=== PATIENT | male | born 1965 | race Caucasian/White ===

== ENCOUNTER 2023-01-11 14:52 | Emergency (ER) | payer MEDICARE, MEDICAID, SELFPAY ==
[2023-01-11] VITALS (20 sets, daily range): BP systolic 110; BP diastolic 76; PULSE 47–75; RESP 15–22; TEMP 36.5; O2SAT 84–100
--- NOTE | 2023-01-11 14:59 | ECG_ITS ---
[facility] Test Date: 2023-01-11 Pat Name: VENUS WILLARD Department: Room: - Gender: Male [employer]: : 1965 Requested By: Order Number: [id number] Reading MD: PATTI FRITZ Measurements Intervals [place] Rate: 74 P: 71 WV: 146 QRS: 64 QRSD: 100 T: 55 QT: 392 QTc: 420 Interpretive Statements 1100 Sinus rhythm 4068 Nonspecific Twave abnormality 0102 ARTIFACT PRESENT 9130 borderline ECG No previous ECG available for comparison Electronically Signed On 01-12-2023 7:11:24 EST by PATTI FRITZ
--- NOTE | 2023-01-11 15:01 | ED_ITS ---
HPI - Altered Mental Status General Chief Complaint: Altered Mental Status Stated Complaint: ALTERED MENTAL STATUS Time Seen by Provider: 01/11/23 14:56 History of Present Illness HPI narrative: 57-year-old male presented for possible seizure. He was on and outing and wasn't acting himself and was felt to be postictal. He appears to have a history of seizures, he is on Keppra. He is nonverbal and is unable to provide any history. Initially no caregivers are present. Initially on the history was obtained through the paramedics. Review of Systems ROS Narrative not obtainable, nonverbal Exam Narrative Exam Narrative: Nurses note and vital signs reviewed and patient is not hypoxic. General: The patient appears well and in no apparent distress. Patient is resting comfortably on cart. Skin: Warm, dry, no pallor noted. There is no rash noted. Head: Normocephalic, atraumatic Eye: Normal conjunctiva, no drainage, right pupil round and reactive, left eye appears to have significant cataract. Ears, Nose, Mouth, and Throat: oral mucosa is moist. Nares patent. Cardiovascular: Regular Rate and Rhythm Respiratory: Patient is in no distress, no accessory muscle use, lungs are clear to auscultation, no wheezing, rales or rhonchi Back: non-tender GI: Normal bowel sounds, no tenderness to palpation, no masses appreciated. No rebound, guarding, or rigidity noted. Musculoskeletal: The patient has no evidence of calf tenderness, no pitting edema, symmetrical pulses noted bilaterally Neurological: aawake, looking around the room, nonverbal Psychiatric: cannot be assessed Constitutional Vital Signs, click to edit/add: Last Vital Signs Temp 97.7 F 01/11/23 14:54 Pulse 75 01/11/23 14:54 Resp 20 01/11/23 14:54 BP 110/76 01/11/23 14:54 Pulse Ox 100 01/11/23 14:54 O2 Del Method Nasal Cannula 01/11/23 14:54 O2 Flow Rate 2 01/11/23 14:54 Course Vital Signs Vital signs: Vital Signs Temperature 97.7 F 01/11/23 14:54 Pulse Rate 75 01/11/23 14:54 Respiratory Rate 20 01/11/23 14:54 Blood Pressure 110/76 01/11/23 14:54 Pulse Oximetry 100 01/11/23 14:54 Oxygen Delivery Method Nasal Cannula 01/11/23 14:54 Oxygen Delivery Flow Rate 2 01/11/23 14:54 Temperature 97.7 F 01/11/23 14:54 Pulse Rate 75 01/11/23 14:54 Respiratory Rate 20 01/11/23 14:54 Blood Pressure 110/76 01/11/23 14:54 Pulse Oximetry 100 01/11/23 14:54 Oxygen Delivery Method Nasal Cannula 01/11/23 14:54 Oxygen Delivery Flow Rate 2 01/11/23 14:54 MDM - Altered Mental Status MDM Narrative Medical decision making narrative: chest x-ray and CT brain showed no acute findings per radiologist. Sodium is mildly low at one hundred twenty-eight. He's had chronic hyponatremia according to his family. He does not need to be admitted to the hospital and is at his normal neurologic baseline now. Gatorade or Powerade was encouraged. Treatment diagnosis and follow-up were discussed with his family. Differential Diagnosis Differential diagnosis: Likely altered mental status, hypoglycemia and hyponatremia Lab Data Attestation: I reviewed the patient's lab results. Labs: Lab Results 01/11/23 Range/Units 15:11 WBC 6.9 (4.0-11.0) 10^3/uL RBC 3.66 L (4.70-6.10) 10^6/uL Hgb 12.2 L (14.0-18.0) g/dL Hct 36.6 L (42.0-54.0) % MCV 100.0 H (80.0-94.0) fL MCH 33.3 (25.9-34.0) pg MCHC 33.3 (29.9-35.2) g/dL RDW 12.9 (11.0-15.0) % Plt Count 324 (150-450) 10^3/uL MPV 8.6 L (9.5-13.5) fL Neut % (Auto) 74.8 (43.0-75.0) % Lymph % (Auto) 16.9 L (20.5-60.0) % [place] % (Auto) 7.1 (1.7-12.0) % Eos % (Auto) 0.4 L (0.9-7.0) % Baso % (Auto) 0.4 (0.2-2.0) % Neut # (Auto) 5.2 (1.4-6.5) 10^3/uL Lymph # (Auto) 1.2 (1.2-3.8) 10^3/uL [place] # (Auto) 0.5 (0.3-0.8) 10^3/uL Eos # (Auto) 0.0 (0.0-0.7) 10^3/uL Baso # (Auto) 0.0 (0.0-0.1) 10^3/uL Abs Immat Gran (auto) 0.03 (0.00-0.03) 10^3/uL Imm/Tot Granulo (auto) 0.4 (0.0-0.5) % Sodium 128 L (136-145) mmol/L Potassium 5.0 (3.5-5.1) mmol/L Chloride 92 L (98-107) mmol/L Carbon Dioxide 28.5 (21.0-32.0) mmol/L Anion Gap 12.5 BUN 17.0 (7.0-18.0) mg/dL Creatinine 0.86 (0.70-1.30) mg/dL Est GFR ( Amer) >60 (>=60) Est GFR (Non-Af Amer) >60 (>=60) BUN/Creatinine Ratio 19.8 Glucose 90 (74-106) mg/dL Calcium 9.0 (8.5-10.1) mg/dL Imaging Data chest x-ray, CT brain: Radiologist's impression: Procedure: XR chest 1V EXAMINATION: XR chest 1V HISTORY: Shortness of breath COMPARISON: None. TECHNIQUE: Portable chest FINDINGS: The lung parenchyma is free of consolidation or infiltrate. No pneumothorax or pleural effusion. The cardiac, mediastinal and hilar contours are normal. The visualized osseous structures exhibit no gross abnormality. IMPRESSION: No acute cardiopulmonary abnormality. Electronically authenticated by: MARINO JAMA Date: 01/11/2023 17:09 Procedure: CT head/brain wo con CT HEAD WITHOUT CONTRAST. INDICATION: Seizure. COMPARISON: None available for comparison TECHNIQUE: Axial CT head images from the skull base to the vertex without IV contrast were acquired. Coronal and sagittal reformats were also obtained. FINDINGS: Somewhat limited evaluation due to motion artifact. EXTRA-AXIAL SPACE: Mild ventriculomegaly likely due to central atrophy.. No acute extra-axial collection. No extra-axial mass. No midline shift. CEREBRUM: There are areas of periventricular and deep white matter low-attenuation, which is nonspecific but likely reflective of chronic microvascular ischemic disease.. There is left frontal lobe encephalomalacia. No CT evidence of acute large territorial cortical infarct, hemorrhage or mass effect. CEREBELLUM: No focal abnormality. No CT evidence of acute infarct, hemorrhage or mass effect. BRAINSTEM: No focal abnormality. No CT evidence of acute infarct, hemorrhage or mass effect. EXTRACRANIAL STRUCTURES. The paranasal sinuses are clear. Mastoid air cells are clear. Orbits are unremarkable. No discrete pituitary mass. Intact calvarium. IMPRESSION: No acute intracranial abnormality. Electronically authenticated by: ANANT SKAGGS Date: 01/11/2023 17:45 ECG Data Attestation: I personally reviewed and interpreted this ECG as follows: (EKG on my interpretation shows artifact with sinus rhythm) Discharge Plan Discharge Chief Complaint: Altered Mental Status Clinical Impression: Altered mental status Patient Disposition: Home, Self-Care Time of Disposition Decision: 17:58 Condition: Good Mode of Transportation: Private Vehicle Instructions: Altered Mental Status (ED) Stand Alone Forms: Portal Instructions Referrals: HIRA RAMIREZ [Primary Care Provider] - 1 week
[2023-01-11 15:19] LABS: Basophils Percent Auto 0.4 % (0.2-2.0); Eosinophils Percent Auto 0.4 % (0.9-7.0); Hematocrit 36.6 % (42.0-54.0); Hemoglobin 12.2 g/dL (14.0-18.0); Immature Granulocytes Abs Auto 0.03 10^3/uL (0.00-0.03); Immature Granulocytes Pct Auto 0.4 % (0.0-0.5); Lymphocytes Absolute Auto 1.2 10^3/uL (1.2-3.8); Lymphocytes Percent Auto 16.9 % (20.5-60.0); Mean Corpuscular HGB Conc 33.3 g/dL (29.9-35.2); Mean Corpuscular Hemoglobin 33.3 pg (25.9-34.0); Mean Platelet Volume 8.6 fL (9.5-13.5); Monocytes Absolute Auto 0.5 10^3/uL (0.3-0.8); Monocytes Percent Auto 7.1 % (1.7-12.0); Neutrophils Absolute Auto 5.2 10^3/uL (1.4-6.5); Neutrophils Percent Auto 74.8 % (43.0-75.0); Platelet Count 324 10^3/uL (150-450); Red Blood Count 3.66 10^6/uL (4.70-6.10); Red Cell Distribution Width 12.9 % (11.0-15.0); White Blood Count 6.9 10^3/uL (4.0-11.0)
[2023-01-11 15:25] LABS: Anion Gap 12.5; BUN Creatinine Ratio 19.8; Carbon Dioxide 28.5 mmol/L (21.0-32.0); Chloride 92 mmol/L (98-107); Estimated GFR (African America >60 (>=60); Estimated GFR (Non-African Ame >60 (>=60); Glucose 90 mg/dL (74-106); Sodium 128 mmol/L (136-145)
--- NOTE | 2023-01-11 15:53 | CT_ITS ---
The [address] [address] Patient Name: VENUS WILLARD MRN: [id number] date: 1965 Sex: M Assigned Patient Location: ER Current Patient Location: ER Accession/Order Number: [id number] Exam Date: 01/11/2023 17:15 Report Date: 01/11/2023 17:45 At the request of: SANDRA CHAPPELL Procedure: CT head/brain wo con CT HEAD WITHOUT CONTRAST. INDICATION: Seizure. COMPARISON: None available for comparison TECHNIQUE: Axial CT head images from the skull base to the vertex without IV contrast were acquired. Coronal and sagittal reformats were also obtained. FINDINGS: Somewhat limited evaluation due to motion artifact. EXTRA-AXIAL SPACE: Mild ventriculomegaly likely due to central atrophy.. No acute extra-axial collection. No extra-axial mass. No midline shift. CEREBRUM: There are areas of periventricular and deep white matter low-attenuation, which is nonspecific but likely reflective of chronic microvascular ischemic disease.. There is left frontal lobe encephalomalacia. No CT evidence of acute large territorial cortical infarct, hemorrhage or mass effect. CEREBELLUM: No focal abnormality. No CT evidence of acute infarct, hemorrhage or mass effect. BRAINSTEM: No focal abnormality. No CT evidence of acute infarct, hemorrhage or mass effect. EXTRACRANIAL STRUCTURES. The paranasal sinuses are clear. Mastoid air cells are clear. Orbits are unremarkable. No discrete pituitary mass. Intact calvarium. CT/CT head/brain wo con IMPRESSION: No acute intracranial abnormality. Electronically authenticated by: ANANT SKAGGS Date: 01/11/2023 17:45
--- NOTE | 2023-01-11 15:53 | XR_ITS ---
The [address] [address] Patient Name: VENUS WILLARD MRN: [id number] date: 1965 Sex: M Assigned Patient Location: ER Current Patient Location: ER Accession/Order Number: [id number] Exam Date: 01/11/2023 16:32 Report Date: 01/11/2023 17:09 At the request of: SANDRA CHAPPELL Procedure: XR chest 1V EXAMINATION: XR chest 1V HISTORY: Shortness of breath COMPARISON: None. TECHNIQUE: Portable chest FINDINGS: The lung parenchyma is free of consolidation or infiltrate. No pneumothorax or pleural effusion. The cardiac, mediastinal and hilar contours are normal. The visualized osseous structures exhibit no gross abnormality. XR/XR chest 1V IMPRESSION: No acute cardiopulmonary abnormality. Electronically authenticated by: MARINO JAMA Date: 01/11/2023 17:09
== END 2023-01-11 18:15 | disposition home or self-care (01) ==
PROVIDERS: Emergency Provider Emergency Medicine; PCP Family Medicine
DX: R41.82 Altered mental status, unspecified (principal); G40.909 Epilepsy, unspecified, not intractable, without status epilepticus; Z79.899 Other long term (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 therapy
CPT/HCPCS: 36415; 70450; 71045; 80048; 85025; 93005; 99285

== ENCOUNTER 2023-11-16 20:06 | Outpatient (OUT) | payer MEDICARE, MEDICAID, SELFPAY ==
--- OUTSIDE RECORDS SUMMARY | 2023-11-16 20:10 | XMS_ITS | CCD ---
Author Organization [facility] Care Team Providers Care Manager Ent Name Role Phone BART JUÁREZ Admitting UnavailBART Mora Attending Unavailabl e No Family, Physician Primary Care Unavailable LEVY BENITEZ Consulting Unavailable LEVY BENITEZ Admitting Unavailable INGRID RAMIREZ Primary Care Unavailable LEVY BENITEZ Attending Unavailable MARLIN DAVIS Consulting Unavailable ALBERTO MCFARLANE Consulting Unavailable HANSEL VELIZ Consulting Unavailable Unavailable Primary Care Provider UnavailOpal Melendez Unavailable INGRID RAMIREZ Primary Care Unavailable EDI ADAM Attending Unavailable KVNG CONNER. Admitting Unavailable ONLY), IP WOUND CARE SERVICES (INPATIENT Consult ing Unavailable (TT ONLY), NEURO-CONSULTING Consulting Estephanie wanble EREN ESPINOSA Consulting Unavailable BOY FRANCO Referring Unavailable INGRID RAMIREZ Primary Care Unavailable MOHAN MOSER Referring Unavailable INGRID RAMIREZ Primary Care Unavailable PLACIDO LE Referring Unavailable INGRID RAMIREZ Primary Care Unavailable Ingrid Ramirez MD Primary Care Provider [phone] МАРИНАCATALINO CASTLE Attending Unavailable INGRID RAMIREZ Referring Unavailable INGRID RAMIREZ Primary Care Unavailable INGRID RAMIREZ Referring Unavailable INGRID RAMIREZ Primary Care Unavailable SARA YEE Referring Unavailable INGRID RAMIREZ Primary Care Unavailable INGRID RAMIREZ Referring Unavailable INGRID RAMIREZ Primary Care Unavailable INGRID RAMIREZ Primary Care Unavailable KIMBERLYN FANG Attending Unavailable МАРИНА, EHAD Consulting Unavailable JANAYAN Tiana Admitting Unavailable CARDIOLOGY, [facility] Consulting Unavailable KIMBERLYN FANG Attending Unavailable KIMBERLYN FANG Referring Unavailable INGRID RAMIREZ Primary Care Unavailable SARA YEE Referring Unavailable INGRID RAMIREZ Primary Care Unavailable INGRID RAMIREZ Referring Unavailable INGRID RAMIREZ Primary Care Unavailable SUAD PRATT Attending Unavailable INGRID RAMIREZ Referring Unavailable INGRID RAMIREZ Primary Care Unavailable NADEEM MILLS Attending Unavailable INGRID RAMIREZ Attending Unavailable TONY ROPER Attending Unavailab TONY Albright Referring Unavailab boyd Allergies Allergy Classification Reported Allergen(s) Allergy Type Date of Onset Reaction(s) Facility (6 sources) Sulfamethoxazole / Trimethoprim; Translations: [SULFAMETHOXAZOLE-TR IMETHOPRIM] Drug Allergy 7 [facility] Medications Current Medications Medication Drug Class(es) Dates Sig (Normalized) Sig (Original) acetaminophen 325 mg oral tablet (3 sources) acetaminophen (TYLENOL) 325 mg tablet Take 500 mg by mouth in the morning and at bedtime. 0 Active bran/gum/fib/tracy/psy l/kelp/pec (FIBER 6 ORAL) (3 sources) bran/gum/fib/tracy /ps yl/kelp/pec (FIBER 6 ORAL) Take by mouth. 0 Active Calcium Carbonate / vitamin D3 (3 sources) take 1 tablet by mouth once CALCIUM CARBONATE/VITAMIN D3 (CALCIUM 600 + D,3, ORAL) Administer 1 tablet per tube daily. Calcium 600 mg with D3 1800 IU daily 0 Active docusate sodium 100 mg oral capsule (3 sources) take 1 capsule by mouth in the morning docusate sodium (COLACE) 100 mg capsule Take 1 capsule (100 mg total) by mouth in the morning. 0 Active famotidine 20 mg oral tablet (3 sources) Histamine-2 Receptor Antagonist Start: 04-08-2019 take 1 tablet by mouth in the morning, then take 1 tablet by mouth at bedtime famotidine (PEPCID) 20 mg tablet Take 1 tablet (20 mg total) by mouth in the morning and 1 tablet (20 mg total) before bedtime. 0 04/08/2019 Active hydrocortisone 10 mg oral tablet (3 sources) Corticosteroid Start: 09-18-2022 take 1 tablet by mouth in the morning, then take 1 tablet by mouth at bedtime hydrocortisone (CORTEF) 10 mg tablet Take 1 tablet (10 mg total) by mouth in the morning and 1 tablet (10 mg total) before bedtime. 60 tablet 0 09/18/2022 Active lamoTRIgine 100 mg oral tablet (4 sources) Mood Stabilizer, Anti-epileptic Agent Start: 11-18-2022 End: 03-29-2023 take 2 tablets by mouth in the morning, then take 2 tablets by mouth at bedtime lamoTRIgine (LaMICtal) 100 mg tablet Indications: Partial symptomatic epilepsy with complex partial seizures, not intractable, without status epilepticus (CMS-HCC) Take 2 tablets (200 mg total) by mouth in the morning and 2 tablets (200 mg total) before bedtime. 120 tablet 3 03/29/2023 Active levETIRAcetam 250 mg oral tablet (3 sources) Start: 02-16-2023 take 1 tablet by mouth in the morning, then take 1 tablet by mouth at bedtime levETIRAcetam (KEPPRA) 250 mg tablet Indications: Partial symptomatic epilepsy with complex partial seizures, not intractable, without status epilepticus (CMS-HCC) Take 1 tablet (250 mg total) by mouth in the morning and 1 tablet (250 mg total) before bedtime. 60 tablet 3 02/16/2023 Active levothyroxine sodium 0.075 mg oral tablet (4 sources) l-Thyroxine Start: 12-27-2020 levothyroxine (SYNTHROID, LEVOTHROID) 75 MCG tablet Take 50 mcg by mouth in the morning. 0 12/27/2020 Active take 1 tablet by chelsea th once daily in the morning Levothyroxine Sodium 50 MCG 1 tablet in the morning on an empty stomach Orally Once a day Active loratadine 10 mg disintegrating oral tablet (3 sources) loratadine (CLAR ITIN REDITABS) 10 mg disintegrating tablet Dissolve 1 tablet (10 mg total) on tongue in the morning. 0 Active midodrine hydrochloride 10 mg oral tablet (3 sources) alpha-Adrenergic Agonist Start: 023 take 1 tablet by mouth three times daily as needed midodrine (PROAMATINE) 10 mg tablet Take 1 tablet (10 mg total) by mouth 3 (three) times a day as needed (for SBP 60 tablet 2 09/18/2022 Active multivit with minerals/lutein (MULTIVITAMIN 50 PLUS ORAL) (3 sources) multivit with minerals/lutein (MULTIVITAMIN 50 PLUS ORAL) Take by mouth. 0 Active nystatin 100 unt/mg topical powder (3 sources) Polyene Antifungal Start: 021 NYSTOP powder Apply 1 Application topically in the morning and 1 Application before bedtime. 0 09/30/2020 Active QUEtiapine 25 mg oral tablet (3 sources) Atypical Antipsychotic Start: 023 take 1 tablet by mouth once daily as needed QUEtiapine (SEROquel) 25 mg tablet Indications: Agitation Take 1 tablet (25 mg total) by mouth daily as needed (CC: agitation). 30 tablet 3 07/15/2022 Active sertraline 50 mg oral tablet (1 source) Serotonin Reuptake Inhibitor take 1 tablet by mouth every twenty-four hours Sertraline HCl 50 MG 1 tablet Orally Once a day Active sodium chloride 1000 mg oral tablet (3 sources) Start: 024 take 2 tablets by mouth three times daily sodium chloride 1,000 mg tablet,soluble Take 2 tablets (2,000 mg total) by mouth 3 (three) times a day. 90 tablet 3 03/08/2023 Active Completed/Discontinued Medications Medication Drug Class(es) Dates Sig (Normalized) Sig (Original) barium sulfate 40 % paste 10 mL (1 source) Start: 03-20-2019 End: 03-20-2019 barium sulfate 40 % paste 10 mL barium sulfate 40 % reconsitutable suspension (1 source) Start: 03-20-2019 End: 03-20-2019 barium sulfate 40 % reconsitutable suspension Problems Active Problems Problem Classification Problem Date Documented Date Episodic/Chronic Acute cerebrovascular disease (9 sources) Cerebral hemorrhage; Translations: [Nontraumatic intracerebral hemorrhage, unspecified] Onset: 02-05-2019 02-28-2019 Chronic Cardiac dysrhythmias (1 source) Bradycardia, unspecified; Translations: [Bradycardia, unspecified] Onset: 08-05-2023 Episodic Chronic ulcer of skin (6 sources) Pressure-induced deep tissue damage of left heel; Translations: [Pressure ulcer, heel] Onset: 03-08-2023 03-08-2023 Chronic Complications of surgical procedures or medical care (1 source) Hypotension due to drugs; Translations: [Hypotension due to drugs] Onset: 08-05-2023 Episodic Delirium, dementia, and amnestic and other cognitive disorders (1 source) Dementia in other diseases classified elsewhere without behavioral disturbance; Translations: [Dementia in other diseases classified elsewhere, unspecified severity, without behavioral disturbance, psychotic disturbance, mood disturbance, and anxiety] Onset: 03-06-2023 Chronic Epilepsy; convulsions (10 sources) Partial epilepsy with impairment of consciousness; Translations: [Localization-related (focal) (partial) symptomatic epilepsy and epileptic syndromes with complex partial seizures, not intractable, without status epilepticus] Onset: 02-06-2020 03-29-2023 Chronic Epilepsy; convulsions (6 sources) Unspecified convulsions; Translations: [Seizure] Onset: 04-05-2020 Episodic Esophageal disorders (4 sources) Gastroesophageal reflux disease; Translations: [Gastro-esophageal reflux disease without esophagitis] Onset: 04-17-2016 02-08-2019 Chronic Hyperplasia of prostate (3 sources) Benign prostatic hyperplasia; Translations: [Benign prostatic hyperplasia with lower urinary tract symptoms] Onset: 01-10-2016 01-10-2016 Chronic Other aftercare (1 source) Other 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 (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 therapy; Translations: [OTH WHANAU SUPPORT WORKER CURRENT DRUG THERAPY] Onset: 04-11-2020 Episodic Other circulatory disease (3 sources) History of intracranial hemorrhage; Translations: [Personal history of other diseases of the circulatory system] Onset: 02-10-2023 02-10-2023 Episodic Other congenital anomalies (2 sources) Down syndrome, unspecified; Translations: [DOWN SYNDROME UNSPECIFIED] Onset: 04-11-2020 Chronic Other congenital anomalies (3 sources) Anomaly of chromosome pair 21; Translations: [Down syndrome, unspecified] Onset: 04-17-2016 03-06-2023 Chronic Other congenital anomalies (3 sources) Dementia with Down syndrome; Translations: [Down syndrome, unspecified] Onset: 07-09-2020 03-06-2023 Chronic Other endocrine disorders (2 sources) Unspecified adrenocortical insufficiency; Translations: [UNS ADRENOCORTICAL INSUFFICIENCY] Onset: 04-11-2020 Chronic Other nutritional; endocrine; and metabolic disorders (1 source) Obesity, unspecified; Translations: [OBESITY UNSPECIFIED] Onset: 04-11-2020 Chronic Other nutritional; endocrine; and metabolic disorders (1 source) Body mass index (BMI) 35.0-35.9, adult; Translations: [BODY MASS INDEX BMI 35.0-35.9 ADULT] Onset: 04-11-2020 Chronic Other screening for suspected conditions (not mental disorders or infectious disease) (1 source) Other specified abnormal findings of blood chemistry; Translations: [Other specified abnormal findings of blood chemistry] Onset: 08-06-2023 Episodic Residual codes; unclassified (4 sources) Sleep apnea; Translations: [Sleep apnea, unspecified] Onset: 04-17-2016 05-18-2022 Chronic Residual codes; unclassified (3 sources) Obstructive sleep apnea syndrome; Translations: [Obstructive sleep apnea (adult) (pediatric)] Onset: 07-09-2020 07-09-2020 Chronic Residual codes; unclassified (2 sources) Obstructive sleep apnea (adult) (pediatric); Translations: [Obstructive sleep apnea (adult) (pediatric)] Onset: 07-09-2020 Chronic Residual codes; unclassified (1 source) Restlessness and agitation; Translations: [Restlessness and agitation] Onset: 06-04-2023 Chronic Residual codes; unclassified (1 source) Personal history of other specified conditions; Translations: [PERSONAL HISTORY OTH SPEC CONDITION] Onset: 04-11-2020 Episodic Residual codes; unclassified (1 source) Did not attend; Translations: [No-show for appointment] 04-15-2023 Episodic Thyroid disorders (4 sources) Hypothyroidism; Translations: [Hypothyroidism, unspecified] Onset: 04-17-2016 03-06-2023 Chronic Unclassified (1 source) CONTACT W/AND (SUSP) EXPOS COVID-19; Translations: [CONTACT W/AND (SUSP) EXPOS COVID-19] Onset: 04-11-2020 Unclassified (1 source) lethargic x2 days, not eating, recent seizure med changes Onset: 03-05-2023 Unclassified (1 source) Traumatic subarachnoid hemorrhage with loss of consciousness status unknown, sequela; Translations: [Traumatic subarachnoid hemorrhage with loss of consciousness status unknown, sequela] Onset: 01-13-2022 Unclassified (1 source) New Patient Onset: 10-20-2023 Past or Other Problems Problem Classification Problem Date Documented Da te Episodic/Chronic Acute posthemorrhagic anemia (3 sources) Acute posthemorrhagic anemia; Translations: [Acute posthemorrhagic anemia] Onset: 02-08-2019 02-08-2019 Episodic Deficiency and other anemia (3 sources) Anemia; Translations: [Anemia, unspecified] Onset: 04-17-2016 03-06-2023 Episodic Fluid and electrolyte disorders (9 sources) Hypo-osmolality and hyponatremia; Translations: [Chronic hyponatremia] Onset: 04-11-2020 03-06-2023 Episodic Genitourinary symptoms and ill-defined conditions (18 sources) Blood in urine; Translations: [Hematuria, unspecified] Onset: 01-10-2016 Resolved: 06-29-2016 01-10-2016 Episodic Immunizations and screening for infectious disease (1 source) Encounter for screening for other viral diseases Onset: 01-24-2021 Resolved: 01-24-2021 Episodic Intracranial injury (3 sources) Subarachnoid hemorrhage due to traumatic injury; Translations: [Traumatic subarachnoid hemorrhage with unknown loss of consciousness status] Onset: 01-13-2022 01-13-2022 Episodic Malaise and fatigue (5 sources) Other fatigue; Translations: [Fatigue] Onset: 09-14-2022 09-14-2022 Episodic Mood disorders (3 sources) Mood disorders Onset: 02-10-2023 02-10-2023 Other circulatory disease (1 source) Personal history of other diseases of the circulatory system; Translations: [Personal history of other diseases of the circulatory system] Onset: 02-10-2023 Episodic Other gastrointestinal disorders (3 sources) Constipation; Translations: [Other constipation] Onset: 02-08-2019 02-08-2019 Episodic Other gastrointestinal disorders (3 sources) Dysphagia; Translations: [Dysphagia, unspecified] Onset: 02-14-2019 02-15-2019 Episodic Other gastrointestinal disorders (1 source) Other constipation; Translations: [Other constipation] Onset: 02-08-2019 Episodic Other male genital disorders (6 sources) Phimosis; Translations: [Phimosis] Onset: 05-01-2016 05-01-2016 Episodic Pneumonia (except that caused by tuberculosis or sexually transmitted disease) (3 sources) Sepsis; Translations: [Pneumonia, unspecified organism] Onset: 02-27-2019 02-27-2019 Episodic Respiratory failure; insufficiency; arrest (adult) (3 sources) Acute respiratory failure; Translations: [Acute respiratory failure with hypoxia] Onset: 02-08-2019 02-28-2019 Episodic Unclassified (3 sources) Onset: 11-18-2022 11-18-2022 Urinary tract infections (5 sources) Acute cystitis without hematuria; Translations: [Acute cystitis] Onset: 03-08-2023 03-08-2023 Episodic Results Test Name Value Interpretation Reference Range Facility XR CHEST 2 VIEWSon XR CHEST 2 VIEWS TITLE OF EXAM: XR - CHEST 2 VIEWS REASON FOR EXAM: COVID ten days ago, congestion TECHNIQUE: 2 radiographs of the chest. COMPARISON: None FINDINGS: Normal lung expansion. Diffuse reticular opacities with nodularity. Central pulmonary venous engorgement with linear opacities approaching the lung peripheries. No scott pneumonic consolidation. No significant effusion or pneumothorax. Cardiomegaly. No acute osseous or upper abdominal abnormality. IMPRESSION: Findings suggest mild interstitial pulmonary edema on a background of chronic small airways disease, fibrosis, and/or inflammatory or infectious bronchitis/bronchioli tis. DICTATED ON: 11/03/2023 3:06 PM This report has been electronically signed in approved by the interpreting radiologist. Electronically Signed Bernardo Keller M.D. 2023-11-03 15:07:12 Normal Not Available CBC AND AUTO DIFFon 08-06-19 24 ABSOLUTE BASOPHIL 0.0 X10E9/L Normal 0.0-0.2 [facility] Comment on above: Performed By: #### 6 30-4 #### [facility] ([id number]) [address] [place] [address] ABSOLUTE NEUTROPHIL 6.0 X10E9/L Normal 1.5-6.6 [facility] Comment on above: Performed By: #### 6 30-4 #### [facility] ([id number]) [address] [place] [address] Basophils/100 WBC (Bld) 0.2 % Normal [facility] Comment on above: Performed By: #### 6 30-4 #### [facility] ([id number]) [address], [address] [place] [address] Eosinophils (Bld) [#/Vol] 0.1 10*3/uL Normal 0.0-0.4 [facility] Comment on above: Performed By: #### 6 30-4 #### [facility] ([id number]) [address] [place] [address] Eosinophils/100 WBC (Bld) 1.0 % Normal [facility] Comment on above: Performed By: #### 6 30-4 #### [facility] ([id number]) [address] [facility] [address] [place] [address] Erythrocyte distribution width (RBC) [Ratio] 15.2 % High 11.5-15.0 [facility] Comment on above: Performed By: #### 6 30-4 #### [facility] ([id number]) [address], [address] [place] [address] Hematocrit (Bld) [Volume fraction] 30.1 % Low 39-49 [facility] Comment on above: Performed By: #### 6 30-4 #### [facility] ([id number]) [address] [place] [address] Hemoglobin (Bld) [Mass/Vol] 10.2 g/dL Low 13.0-17.0 [facility] Comment on above: Performed By: #### 6 30-4 #### [facility] ([id number]) [address] [place] [address] Lymphocytes (Bld) [#/Vol] 0.5 10*3/uL Low 1.0-3.5 [facility] Comment on above: Performed By: #### 6 30-4 #### [facility] ([id number]) [address] [place] [address] Lymphocytes/100 WBC (Bld) 6.7 % Normal [facility] Comment on above: Performed By: #### 6 30-4 #### [facility] ([id number]) [address], [address] [place] [address] MCH (RBC) [Entitic mass] 33.9 pg Normal 27-34 [facility] Comment on above: Performed By: #### 6 30-4 #### [facility] ([id number]) [address], [address] [place] [address] MCHC (RBC) [Mass/Vol] 33.7 g/dL Normal 32-36 [facility] Comment on above: Performed By: #### 6 30-4 #### [facility] ([id number]) [address], [address] [place] [address] MCV (RBC) [Entitic vol] 101 fL High 80-100 [facility] Comment on above: Performed By: #### 6 30-4 #### [facility] ([id number]) [address], [address] [place] [address] Monocytes (Bld) [#/Vol] 0.4 10*3/uL Normal 0-0.9 [facility] Comment on above: Performed By: #### 6 30-4 #### [facility] ([id number]) [address], [address] [place] [address] Monocytes/100 WBC (Bld) 6.3 % Normal [facility] Comment on above: Performed By: #### 6 30-4 #### [facility] ([id number]) [address], [address] [place] [address] Neutrophils/100 WBC (Bld) 85.8 % Normal [facility] Comment on above: Performed By: #### 6 30-4 #### [facility] ([id number]) [address], [address] [place] [address] Platelet mean volume (Bld) [Entitic vol] 7.2 fL Normal 7-12 [facility] Comment on above: Performed By: #### 6 30-4 #### [facility] ([id number]) [address], [address] [place] [address] Platelets (Bld) [#/Vol] 241 10*3/uL Normal 150-450 [facility] Comment on above: Performed By: #### 6 30-4 #### [facility] ([id number]) [address], [address] [place] [address] RBC COUNT 2.99 X10E12/L Low 4.10-5.70 [facility] Comment on above: Performed By: #### 6 30-4 #### [facility] ([id number]) [address], [address] [place] [address] WBC (Bld) [#/Vol] 7.0 10*3/uL Normal 4.0-11.0 [facility] Comment on above: Performed By: #### 6 30-4 #### [facility] ([id number]) [address], [address] [place] [address] CK [Catalytic activity/Vol]o n 08-06-2023 CPK 62 U/L Normal 24-195 [facility] Comment on above: Performed By: #### B MP #### [facility] ([id number]) [address], [address] [place] [address] COMPREHENSIVE METABOLIC PANE Raymond 08-06-2023 Albumin [Mass/Vol] 3.0 g/dL Low 3.2-5.3 [facility] Comment on above: Performed By: #### 6 30-4 #### [facility] ([id number]) [address], [address] [place] [address] ALP [Catalytic activity/Vol] 62 U/L Normal 39-130 [facility] Comment on above: Performed By: #### 6 30-4 #### [facility] ([id number]) [address], [address] [place] [address] ALT [Catalytic activity/Vol] 54 U/L High 0-40 [facility] Comment on above: Performed By: #### 6 30-4 #### [facility] ([id number]) [address] [place] [address] Anion gap [Moles/Vol] 8 mmol/L Normal 5-15 [facility] Comment on above: Performed By: #### 6 30-4 #### [facility] ([id number]) [address], [address] [place] [address] AST [Catalytic activity/Vol] 40 U/L Normal 0-41 [facility] Comment on above: Performed By: #### 6 30-4 #### [facility] ([id number]) [address], [address] [place] [address] Bilirubin [Mass/Vol] 0.4 mg/dL Normal 0.3-1.2 [facility] Comment on above: Performed By: #### 6 30-4 #### [facility] ([id number]) [address] [place] [address] Calcium [Mass/Vol] 7.8 mg/dL Low 8.5-10.5 [facility] Comment on above: Performed By: #### 6 30-4 #### [facility] ([id number]) [address], [address] [place] [address] Chloride [Moles/Vol] 104 mmol/L Normal 98-109 [facility] Comment on above: Performed By: #### 6 30-4 #### [facility] ([id number]) [address], [address] [place] [address] CO2 [Moles/Vol] 22 mmol/L Normal 22-32 [facility] Comment on above: Performed By: #### 6 30-4 #### [facility] ([id number]) [address] [address] [place] [address] Creatinine [Mass/Vol] 0.92 mg/dL Normal 0.70-1.20 [facility] Comment on above: Result Comment: METH OD TRACEABLE TO IDMS STANDARD Performed By: #### 6 30-4 #### [facility] ([id number]) [address], [address] [place] [address] eGFR (CKD-EPI) NON-RACE DEPENDENT >90 Normal >59 [facility] Comment on above: Result Comment: Reported eGFR is based on the CKD-EPI 2020 equation that does not use a race coefficient. Performed By: #### 6 30-4 #### [facility] ([id number]) [address] [place] [address] Glucose [Mass/Vol] 118 mg/dL High 65-99 [facility] Comment on above: Performed By: #### 6 30-4 #### [facility] ([id number]) [address] [place] [address] Potassium [Moles/Vol] 4.2 mmol/L Normal 3.5-5.0 [facility] Comment on above: Performed By: #### 6 30-4 #### [facility] ([id number]) [address] [place] [address] Protein [Mass/Vol] 6.1 g/dL Normal 6.0-8.0 [facility] Comment on above: Performed By: #### 6 30-4 #### [facility] ([id number]) [address] [place] [address] Sodium [Moles/Vol] 134 mmol/L Normal 134-146 [facility] Comment on above: Performed By: #### 6 30-4 #### [facility] LAB ([id number]) [address], [address] [place] [address] Urea nitrogen [Mass/Vol] 21 mg/dL Normal 5-23 [facility] Comment on above: Performed By: #### 6 30-4 #### [facility] ([id number]) [address], [address] [place] [address] CT BRAIN WO CONTon CT BRAIN WO CONT CT BRAIN WO CONT CT BRAIN WO CONT HISTORY: Seizures, history of stroke COMPARISON: 03/06/2023 TECHNIQUE: CT brain obtained without intravenous contrast. Automated exposure control was utilized. All CT scans at this facility use dose modulation, iterative reconstruction, and/or weight based dosing when appropriate to reduce radiation dose to as low as reasonably achievable. FINDINGS: No midline shift, mass effect, acute intracranial hemorrhage, or evidence of acute large vessel ischemia/infarct. Sequelae of right frontal territorial infarct with encephalomalacia, not changed compared to prior. Left frontoparietal craniotomy. Severe, diffuse cerebral volume loss with proportionate prominence of the ventricles, cisterns, and sulci. Hypoattenuation in the periventricular white matter, likely related to chronic microvascular ischemic disease. Brainstem and cerebellum are unremarkable. Visualized intraorbital contents and the infratemporal soft tissues show no acute abnormality. The visualized paranasal sinuses well-aerated. Hypopneumatization of the mastoid air cells. Osseous structures in skull base and calvarium show no acute abnormality. IMPRESSION: * No acute intracranial abnormality by CT. Consider MRI if you suspect occult process. Approved by Resident: Sonido Rodriguez DO on 08/06/2023 12:05 AM IBeau MD have personally reviewed the image(s) and agree with and/or edited the report Finalized by Beau Ramirez MD on 08/06/2023 12:19 AM Normal [facility] MAGNESIUMon 08-06-2023 Magnesium [Mass/Vol] 1.9 mg/dL Normal 1.8-2.6 [facility] Comment on above: Performed By: #### B MP #### [facility] ([id number]) [address], [address] [place] [address] Magnesium Ionized ISE (Bld) [Moles/Vol]on 08-06-2023 Magnesium [Moles/Vol] 0.56 mmol/L Normal 0.45-0.74 [facility] Comment on above: Result Comment: NEW REFERENCE RANGE Performed By: #### B MP #### [facility] ([id number]) [address], [address] [place] [address] Troponin I.cardiac High sens itivity method [Mass/Vol]on 08-06-2023 3 HOUR TROP I, HIGH SENSITIVITY 70 ng/L High <21 [facility] Comment on above: Result Comment: Elevations of hs-Troponin may be due to causes other than myocardial ischemia. Recommend serial hs-Troponin testing be performed. For the initial evaluation and management of chest pain patients, refer to the algorithms linked below. Emergency Patient: [email or web address]& uh=acaea Inpatient: [email or web address]?[email or web address]&[email or web address]& uh=acaea Performed By: #### B MP #### [facility] ([id number]) [address], [address] [place] [address] 3 HOUR TROP I, HIGH SENSITIVITY 85 ng/L High <21 [facility] Comment on above: Result Comment: Elevations of hs-Troponin may be due to causes other than myocardial ischemia. Recommend serial hs-Troponin testing be performed. For the initial evaluation and management of chest pain patients, refer to the algorithms linked below. Emergency Patient: [email or web address]&[email or web address]& uh=acaea Inpatient: [email or web address] [email or web address]?[email or web address]&[email or web address]& uh=acaea Performed By: #### 6 30-4 #### [facility] ([id number]) [facility], [address] [place] [address] 1 HOUR TROP I, HIGH SENSITIVITY 75 ng/L High <21 [facility] Comment on above: Result Comment: Elevations of hs-Troponin may be due to causes other than myocardial ischemia. Recommend serial hs-Troponin testing be performed. For the initial evaluation and management of chest pain patients, refer to the algorithms linked below. Emergency Patient: [email or web address]&[email or web address]& uh=acaea Inpatient: [email or web address]&n=83667& uh=acaea Performed By: #### 6 30-4 #### [facility] ([id number]) [address] [place] [address], [address] [place] [address] lamoTRIgine [Mass/Vol]on Lamotrigine, S 8.6 mcg/mL Normal 3.0-15.0 [facility] Comment on above: Result Comment: NOTE ADDITIONAL INFORMATION This test was developed and its performance characteristics determined by [facility] in a manner consistent with CLIA requirements. This test has not been cleared or approved by the U.S. Food and Drug Administration. Test Performed by: [facility] [address] [address] [employer] Worker: Mathew Gomez M.D. Ph.D.; CLIA# [id number] Performed By: #### B MP #### [facility] ([id number]) [address] [place] [address], [address] [place] [address] levETIRAcetam [Mass/Vol]on 08-06-2023 LEVETIRACETAM See Below Normal [facility] Comment on above: Result Comment: NOTE TEST RESULT FLAG UNIT REF.RANGE ------- Levetiracetam 55.7 H ug/mL 12.0-46.0 This test is not suitable for patients receiving treatment with the drug brivaracetam (Briviact). The drug causes an interference that may lead to falsely elevated levetiracetam results. Reference ranges and high/low indicator flags are provided as general guidelines only. The treating physician must determine appropriate target levels/dosing based on the specific clinical situation. This test was developed and its performance characteristics determined by [facility]'s [facility] [place] ([facility]). It has not been cleared or approved by the FDA. [facility] is regulated under CLIA as qualified to perform high-complexity testing. This test is used for clinical purposes. It should not be regarded as investigational or for research. Test Performed By: [place] [address] [employer] Officer: Aditya Allen III, M.D. CLIA #[id number] Performed By: #### B MP #### [facility] ([id number]) [address], [address] [place] [address] CBC AND AUTO DIFFon 08-05-19 24 ABSOLUTE BASOPHIL 0.0 X10E9/L Normal 0.0-0.2 [facility] Comment on above: Performed By: #### 6 30-4 #### [facility] ([id number]) [address], [address] [place] [address] ABSOLUTE NEUTROPHIL 6.7 X10E9/L High 1.5-6.6 [facility] Comment on above: Performed By: #### 6 30-4 #### [facility] ([id number]) [address] [place] [address] Basophils/100 WBC (Bld) 0.3 % Normal [facility] Comment on above: Performed By: #### 6 30-4 #### [facility] ([id number]) [address], [facility] [address] [place] [address] Eosinophils (Bld) [#/Vol] 0.1 10*3/uL Normal 0.0-0.4 [facility] Comment on above: Performed By: #### 6 30-4 #### [facility] ([id number]) [address] [address] [place] [address] Eosinophils/100 WBC (Bld) 1.1 % Normal [facility] Comment on above: Performed By: #### 6 30-4 #### [facility] ([id number]) [address] [place] [address] Erythrocyte distribution width (RBC) [Ratio] 15.0 % Normal 11.5-15.0 [facility] Comment on above: Performed By: #### 6 30-4 #### [facility] ([id number]) [address], [facility] [address] [place] [address] Hematocrit (Bld) [Volume fraction] 35.3 % Low 39-49 [facility] Comment on above: Performed By: #### 6 30-4 #### [facility] ([id number]) [address] [address] [place] [address] Hemoglobin (Bld) [Mass/Vol] 11.9 g/dL Low 13.0-17.0 [facility] Comment on above: Performed By: #### 6 30-4 #### [facility] ([id number]) [address] [address] [place] [address] Lymphocytes (Bld) [#/Vol] 0.4 10*3/uL Low 1.0-3.5 [facility] Comment on above: Performed By: #### 6 30-4 #### [facility] ([id number]) [address] [place] [address] Lymphocytes/100 WBC (Bld) 5.5 % Normal [facility] Comment on above: Performed By: #### 6 30-4 #### [facility] ([id number]) [address], [address] [place] [address] MCH (RBC) [Entitic mass] 33.5 pg Normal 27-34 [facility] Comment on above: Performed By: #### 6 30-4 #### [facility] ([id number]) [address], [address] [place] [address] MCHC (RBC) [Mass/Vol] 33.6 g/dL Normal 32-36 [facility] Comment on above: Performed By: #### 6 30-4 #### [facility] ([id number]) [address], [address] [place] [address] MCV (RBC) [Entitic vol] 100 fL Normal 80-100 [facility] Comment on above: Performed By: #### 6 30-4 #### [facility] ([id number]) [address], [address] [place] [address] Monocytes (Bld) [#/Vol] 0.3 10*3/uL Normal 0-0.9 [facility] Comment on above: Performed By: #### 6 30-4 #### [facility] ([id number]) [address], [address] [place] [address] Monocytes/100 WBC (Bld) 3.7 % Normal [facility] Comment on above: Performed By: #### 6 30-4 #### [facility] ([id number]) [address], [address] [place] [address] Neutrophils/100 WBC (Bld) 89.4 % Normal [facility] Comment on above: Performed By: #### 6 30-4 #### [facility] ([id number]) [address], [address] [place] [address] Platelet mean volume (Bld) [Entitic vol] 7.0 fL Normal 7-12 [facility] Comment on above: Performed By: #### 6 30-4 #### [facility] ([id number]) [address], [address] [place] [address] Platelets (Bld) [#/Vol] 270 10*3/uL Normal 150-450 [facility] Comment on above: Performed By: #### 6 30-4 #### [facility] ([id number]) [address], [address] [place] [address] RBC COUNT 3.55 X10E12/L Low 4.10-5.70 [facility] Comment on above: Performed By: #### 6 30-4 #### [facility] ([id number]) [address], [address] [place] [address] WBC (Bld) [#/Vol] 7.5 10*3/uL Normal 4.0-11.0 [facility] Comment on above: Performed By: #### 6 30-4 #### [facility] ([id number]) [address], [address] [place] [address] COMPREHENSIVE METABOLIC PANE Raymond 08-05-2023 Albumin [Mass/Vol] 3.7 g/dL Normal 3.2-5.3 [facility] Comment on above: Performed By: #### 6 30-4 #### [facility] ([id number]) [address], [address] [place] [address] ALP [Catalytic activity/Vol] 77 U/L Normal 39-130 [facility] Comment on above: Performed By: #### 6 30-4 #### [facility] ([id number]) [address], [address] [place] [address] ALT [Catalytic activity/Vol] 63 U/L High 0-40 [facility] Comment on above: Performed By: #### 6 30-4 #### [facility] ([id number]) [address], [address] [place] [address] Anion gap [Moles/Vol] 3 mmol/L Low 5-15 [facility] Comment on above: Performed By: #### 6 30-4 #### [facility] ([id number]) [address], [address] [place] [address] AST [Catalytic activity/Vol] 54 U/L High 0-41 [facility] Comment on above: Performed By: #### 6 30-4 #### [facility] ([id number]) [address], [address] [place] [address] Bilirubin [Mass/Vol] 0.7 mg/dL Normal 0.3-1.2 [facility] Comment on above: Performed By: #### 6 30-4 #### [facility] ([id number]) [address], [address] [place] [address] Calcium [Mass/Vol] 8.4 mg/dL Low 8.5-10.5 [facility] Comment on above: Performed By: #### 6 30-4 #### [facility] ([id number]) [address] [place] [address] Chloride [Moles/Vol] 104 mmol/L Normal 98-109 [facility] Comment on above: Performed By: #### 6 30-4 #### [facility] ([id number]) [address], [address] [place] [address] CO2 [Moles/Vol] 27 mmol/L Normal 22-32 [facility] Comment on above: Performed By: #### 6 30-4 #### [facility] ([id number]) [address], [address] [place] [address] Creatinine [Mass/Vol] 1.14 mg/dL Normal 0.70-1.20 [facility] Comment on above: Result Comment: METH OD TRACEABLE TO IDMS STANDARD Performed By: #### 6 30-4 #### [facility] ([id number]) [address] [address] [place] [address] GFR/1.73 sq M.predicted among non-blacks MDRD (S/P/Bld) [Vol rate/Area] 75 mL/min/{1.73_m2} Normal >59 [facility] Comment on above: Result Comment: Reported eGFR is based on the CKD-EPI 2020 equation that does not use a race coefficient. Performed By: #### 6 30-4 #### [facility] ([id number]) [address] [address] [address] [place] [address] Glucose [Mass/Vol] 101 mg/dL High 65-99 [facility] Comment on above: Performed By: #### 6 30-4 #### [facility] ([id number]) [address] [address] [place] [address] Potassium [Moles/Vol] 4.2 mmol/L Normal 3.5-5.0 [facility] Comment on above: Performed By: #### 6 30-4 #### [facility] ([id number]) [address] [address] [place] [address] Protein [Mass/Vol] 7.4 g/dL Normal 6.0-8.0 [facility] Comment on above: Performed By: #### 6 30-4 #### [facility] ([id number]) [address] [address] [place] [address] Sodium [Moles/Vol] 134 mmol/L Normal 134-146 [facility] Comment on above: Performed By: #### 6 30-4 #### [facility] ([id number]) [address], [address] [place] [address] Urea nitrogen [Mass/Vol] 23 mg/dL Normal 5-23 [facility] Comment on above: Performed By: #### 6 30-4 #### [facility] ([id number]) [address], [address] [place] [address] Lactate (P chey) [Moles/Vol]o n 08-05-2023 LACTATE W/REFLEX 2.0 mmol/L Normal 0.4-2.0 [facility] Comment on above: Result Comment: Result did not trigger repeat Lactate, re-order if needed. Performed By: #### 6 30-4 #### [facility] ([id number]) [address] [place] [address] MAGNESIUMon 08-05-2023 Magnesium [Mass/Vol] 2.0 mg/dL Normal 1.8-2.6 [facility] Comment on above: Performed By: #### 6 30-4 #### [facility] ([id number]) [address], [address] [place] [address] Troponin I.cardiac High sens itivity method [Mass/Vol]on 08-05-2023 TROPONIN I, HIGH SENSITIVITY 61 ng/L High <21 [facility] Comment on above: Result Comment: Elevations of hs-Troponin may be due to causes other than myocardial ischemia. Recommend serial hs-Troponin testing be performed. For the initial evaluation and management of chest pain patients, refer to the algorithms linked below. Emergency Patient: [email or web address]&[email or web address]& uh=acaea Inpatient: [email or web address]& uh=acaea Performed By: #### 6 30-4 #### [facility] ([id number]) [address], [address] [place] [address] BASIC METABOLIC PANLon 06-14 Anion gap [Moles/Vol] 7 mmol/L Normal 5-15 [facility] Comment on above: Performed By: #### Ammy MENDEZ, BMP, , 2776-03, 2730-8 #### [facility] ([id number]) [address], [address] [place] [address] Calcium [Mass/Vol] 8.6 mg/dL Normal 8.5-10.5 [facility] Comment on above: Performed By: #### Ammy MENDEZ, BMP, , 2776-03, 2730-8 #### [facility] ([id number]) [address], [address] [place] [address] Chloride [Moles/Vol] 104 mmol/L Normal 98-109 [facility] Comment on above: Performed By: #### Ammy MENDEZ, BMP, , 2776-03, 8 #### [facility] ([id number]) [address], [address] [place] [address] CO2 [Moles/Vol] 28 mmol/L Normal 22-32 [facility] Comment on above: Performed By: #### Ammy MENDEZ, BMP, , 2776-03, 2730-8 #### [facility] ([id number]) [address], [address] [place] [address] Creatinine [Mass/Vol] 1.03 mg/dL Normal 0.60-1.30 [facility] Comment on above: Result Comment: METH OD TRACEABLE TO IDMS STANDARD Performed By: #### Ammy MENDEZ, BMP, , 2776-03, 2730-8 #### [facility] ([id number]) [address], [address] [place] [address] GFR/1.73 sq M.predicted among non-blacks MDRD (S/P/Bld) [Vol rate/Area] 85 mL/min/{1.73_m2} Normal >59 [facility] Comment on above: Result Comment: Reported eGFR is based on the CKD-EPI 2020 equation that does not use a race coefficient. Performed By: #### C ANDREA BMP, , 2776-03, 8 #### [facility] ([id number]) [address] [place] [address] Glucose [Mass/Vol] 91 mg/dL Normal 65-99 [facility] Comment on above: Performed By: #### C ANDREA, JOSE, , 2776-03, 2730-09 #### [facility] ([id number]) [address] [facility] [address] [place] [address] Potassium [Moles/Vol] 3.9 mmol/L Normal 3.5-5.0 [facility] Comment on above: Performed By: #### Ammy MENDEZ, BMP, , 2776-03, 2730-09 #### [facility] ([id number]) [address], [address] [place] [address] Sodium [Moles/Vol] 139 mmol/L Normal 134-146 [facility] Comment on above: Performed By: #### Ammy MENDEZ, BMP, , 2776-03, 2730-09 #### [facility] ([id number]) [address], [address] [place] [address] Urea nitrogen [Mass/Vol] 19 mg/dL Normal 5-23 [facility] Comment on above: Performed By: #### Ammy MENDEZ, BMP, , 2776-03, 8 #### [facility] ([id number]) [address], [address] [place] [address] COMPLETE BLOOD COUNTon 06-14 Erythrocyte distribution width (RBC) [Ratio] 15.6 % High 11.5-15.0 [facility] Comment on above: Performed By: #### C JOSE MENDEZ, , 2776-03, 2730-09 #### [facility] ([id number]) [address], [facility] [address] [place] [address] Hematocrit (Bld) [Volume fraction] 33.0 % Low 39-49 [facility] Comment on above: Performed By: #### Ammy MENDEZ, BMP, , 2776-03, 2730-09 #### [facility] ([id number]) [address], [facility] [address] [place] [address] Hemoglobin (Bld) [Mass/Vol] 11.2 g/dL Low 13.0-17.0 [facility] Comment on above: Performed By: #### Ammy MENDEZ, BMP, , 2776-03, 2730-09 #### [facility] ([id number]) [address], [facility] [address] [place] [address] MCH (RBC) [Entitic mass] 33.9 pg Normal 27-34 [facility] Comment on above: Performed By: #### JOSE MINA, , 2776-03, 2730-09 #### [facility] ([id number]) [address] [place] [address] MCHC (RBC) [Mass/Vol] 34.0 g/dL Normal 32-36 [facility] Comment on above: Performed By: #### Ammy MENDEZ, BMP, , 2776-03, 2730-09 #### [facility] ([id number]) [address] [address] [place] [address] MCV (RBC) [Entitic vol] 100 fL Normal 80-100 [facility] Comment on above: Performed By: #### Ammy MENDEZ, BMP, , 2776-03, 2730-09 #### [facility] ([id number]) [address] [place] [address] Platelet mean volume (Bld) [Entitic vol] 7.8 fL Normal 7-12 [facility] Comment on above: Performed By: #### Ammy MENDEZ, JOSE, , 2776-03, 8 #### [facility] ([id number]) [address] [place] [address] Platelets (Bld) [#/Vol] 310 10*3/uL Normal 150-450 [facility] Comment on above: Performed By: #### Ammy MENDEZ, JOSE, , 2776-03, 8 #### [facility] ([id number]) [address] [place] [address] RBC COUNT 3.30 X10E12/L Low 4.10-5.70 [facility] Comment on above: Performed By: #### JOSE MINA, , 2776-03, 8 #### [facility] ([id number]) [address] [place] [address] WBC (Bld) [#/Vol] 5.2 10*3/uL Normal 4.0-11.0 [facility] Comment on above: Performed By: #### JOSE MINA, , 2776-03, 8 #### [facility] ([id number]) [address] [place] [address] MAGNESIUMon 06-15-2023 Magnesium [Mass/Vol] 2.1 mg/dL Normal 1.8-2.6 [facility] Comment on above: Performed By: #### Ammy MENDEZ, JOSE, , 2776-03, 8 #### [facility] ([id number]) [address] [place] [address] PHOSPHORUSon 06-15-2023 Phosphate [Mass/Vol] 3.8 mg/dL Normal 2.4-4.9 [facility] Comment on above: Performed By: #### C BC, BMP, [address]057-0, 2777-1, 2731-8 #### [facility] ([id number]) [address] [place] [address] Parathyrin.intact [Mass/Vol] on 06-15-2023 PTH INTACT 72 pg/mL Normal 12-88 [facility] Comment on above: Performed By: #### C BC, BMP, 57807-5, 2776-, 273-8 #### [facility] ([id number]) [address] [place] [address] BASIC METABOLIC PANLon 04-19 Anion gap [Moles/Vol] 8 mmol/L Normal 5-15 [facility] Comment on above: Performed By: #### B MP #### [facility] ([id number]) [address] [place] [address] Calcium [Mass/Vol] 9.3 mg/dL Normal 8.5-10.5 [facility] Comment on above: Performed By: #### B MP #### [facility] ([id number]) [address] [place] [address] Chloride [Moles/Vol] 108 mmol/L Normal 98-109 [facility] Comment on above: Performed By: #### B MP #### [facility] ([id number]) [address] [place] [address] CO2 [Moles/Vol] 29 mmol/L Normal 22-32 [facility] Comment on above: Performed By: #### B MP #### [facility] ([id number]) [address] [place] [address] Creatinine [Mass/Vol] 0.70 mg/dL Normal 0.60-1.30 [facility] Comment on above: Result Comment: METH OD TRACEABLE TO IDMS STANDARD Performed By: #### B MP #### [facility] ([id number]) [address] [place] [address] eGFR (CKD-EPI) NON-RACE DEPENDENT >90 Normal >59 [facility] Comment on above: Result Comment: Reported eGFR is based on the CKD-EPI 2020 equation that does not use a race coefficient. Performed By: #### B MP #### [facility] ([id number]) [address] [place] [address] Glucose [Mass/Vol] 87 mg/dL Normal 65-99 [facility] Comment on above: Performed By: #### B MP #### [facility] ([id number]) [address] [place] [address] Potassium [Moles/Vol] 4.2 mmol/L Normal 3.5-5.0 [facility] Comment on above: Performed By: #### B MP #### [facility] ([id number]) [address] [place] [address] Sodium [Moles/Vol] 145 mmol/L Normal 134-146 [facility] Comment on above: Performed By: #### B MP #### [facility] ([id number]) [address] [place] [address] Urea nitrogen [Mass/Vol] 28 mg/dL High 5-23 [facility] Comment on above: Performed By: #### B MP #### [facility] ([id number]) [address] [place] [address] BASIC METABOLIC PANLon 04-09 Anion gap [Moles/Vol] 9 mmol/L Normal 5-15 [facility] Comment on above: Performed By: #### B MP #### [facility] ([id number]) [address] [place] [address] Calcium [Mass/Vol] 9.6 mg/dL Normal 8.5-10.5 [facility] Comment on above: Performed By: #### B MP #### [facility] ([id number]) [address] [place] [address] Chloride [Moles/Vol] 99 mmol/L Normal 98-109 [facility] Comment on above: Performed By: #### B MP #### [facility] ([id number]) [address] [place] [address] CO2 [Moles/Vol] 30 mmol/L Normal 22-32 [facility] Comment on above: Performed By: #### B MP #### [facility] ([id number]) [address] [place] [address] Creatinine [Mass/Vol] 0.95 mg/dL Normal 0.60-1.30 [facility] Comment on above: Result Comment: METH OD TRACEABLE TO IDMS STANDARD Performed By: #### B MP #### [facility] ([id number]) [address] [place] [address] eGFR (CKD-EPI) NON-RACE DEPENDENT >90 Normal >59 [facility] Comment on above: Result Comment: Reported eGFR is based on the CKD-EPI 2020 equation that does not use a race coefficient. Performed By: #### B MP #### [facility] ([id number]) [address] [place] [address] Glucose [Mass/Vol] 86 mg/dL Normal 65-99 [facility] Comment on above: Performed By: #### B MP #### [facility] ([id number]) [address] [place] [address] Potassium [Moles/Vol] 4.0 mmol/L Normal 3.5-5.0 [facility] Comment on above: Performed By: #### B MP #### [facility] ([id number]) [address] [place] [address] Sodium [Moles/Vol] 138 mmol/L Normal 134-146 [facility] Comment on above: Performed By: #### B MP #### [facility] ([id number]) [address] [place] [address] Urea nitrogen [Mass/Vol] 15 mg/dL Normal 5-23 [facility] Comment on above: Performed By: #### B MP #### [facility] ([id number]) [address] [place] [address] BASIC METABOLIC PANLon 03-31 Anion gap [Moles/Vol] 7 mmol/L Normal 5-15 [facility] Comment on above: Performed By: #### B MP #### [facility] ([id number]) [address] [place] [address] Calcium [Mass/Vol] 8.7 mg/dL Normal 8.5-10.5 [facility] Comment on above: Performed By: #### B MP #### [facility] ([id number]) [address] [place] [address] Chloride [Moles/Vol] 98 mmol/L Normal 98-109 [facility] Comment on above: Performed By: #### B MP #### [facility] ([id number]) [address] [place] [address] CO2 [Moles/Vol] 28 mmol/L Normal 22-32 [facility] Comment on above: Performed By: #### B MP #### [facility] ([id number]) [address] [place] [address] Creatinine [Mass/Vol] 0.79 mg/dL Normal 0.60-1.30 [facility] Comment on above: Result Comment: METH OD TRACEABLE TO IDMS STANDARD Performed By: #### B MP #### [facility] ([id number]) [address] [place] [address] eGFR (CKD-EPI) NON-RACE DEPENDENT >90 Normal >59 [facility] Comment on above: Result Comment: Reported eGFR is based on the CKD-EPI 2020 equation that does not use a race coefficient. Performed By: #### B MP #### [facility] ([id number]) [address] [place] [address] Glucose [Mass/Vol] 87 mg/dL Normal 65-99 [facility] Comment on above: Performed By: #### B MP #### [facility] ([id number]) [address] [place] [address] Potassium [Moles/Vol] 4.1 mmol/L Normal 3.5-5.0 [facility] Comment on above: Performed By: #### B MP #### [facility] ([id number]) [address] [place] [address] Sodium [Moles/Vol] 133 mmol/L Low 134-146 [facility] Comment on above: Performed By: #### B MP #### [facility] ([id number]) [address] [place] [address] Urea nitrogen [Mass/Vol] 16 mg/dL Normal 5-23 [facility] Comment on above: Performed By: #### B MP #### [facility] ([id number]) [address] [place] [address] BASIC METABOLIC PANLon 03-20 Anion gap [Moles/Vol] 8 mmol/L Normal 5-15 [facility] Comment on above: Performed By: #### B MP #### [facility] ([id number]) [address] [place] [address] Calcium [Mass/Vol] 9.3 mg/dL Normal 8.5-10.5 [facility] Comment on above: Performed By: #### B MP #### [facility] ([id number]) [address] [place] [address] Chloride [Moles/Vol] 98 mmol/L Normal 98-109 [facility] Comment on above: Performed By: #### B MP #### [facility] ([id number]) [address] [place] [address] CO2 [Moles/Vol] 30 mmol/L Normal 22-32 [facility] Comment on above: Performed By: #### B MP #### [facility] ([id number]) [address] [place] [address] Creatinine [Mass/Vol] 0.94 mg/dL Normal 0.60-1.30 [facility] Comment on above: Result Comment: METH OD TRACEABLE TO IDMS STANDARD Performed By: #### B MP #### [facility] ([id number]) [address] [place] [address] eGFR (CKD-EPI) NON-RACE DEPENDENT >90 Normal >59 [facility] Comment on above: Result Comment: Reported eGFR is based on the CKD-EPI 2020 equation that does not use a race coefficient. Performed By: #### B MP #### [facility] ([id number]) [address] [place] [address] Glucose [Mass/Vol] 85 mg/dL Normal 65-99 [facility] Comment on above: Performed By: #### B MP #### [facility] ([id number]) [address] [place] [address] Potassium [Moles/Vol] 4.2 mmol/L Normal 3.5-5.0 [facility] Comment on above: Performed By: #### B MP #### [facility] ([id number]) [address] [place] [address] Sodium [Moles/Vol] 136 mmol/L Normal 134-146 [facility] Comment on above: Performed By: #### B MP #### [facility] ([id number]) [address] [address] [place] [address] Urea nitrogen [Mass/Vol] 13 mg/dL Normal 5-23 [facility] Comment on above: Performed By: #### B MP #### [facility] ([id number]) [address] [address] URINE CULTUREon 03-20-2023 Bacteria identified Cx Nom (U) CULTURE RESULTS 10-50,000 ORGANISMS/mL NORMAL UROGENITAL OSMEL Normal [facility] Comment on above: Performed By: #### 6 30-4 #### [facility] ([id number]) [address] [address] CBC AND AUTO DIFFon 03-08-19 ABSOLUTE BASOPHIL 0.0 X10E9/L Normal 0.0-0.2 [facility] Comment on above: Performed By: #### 1 9123-9, CBCA, BMP, LIVR #### [facility] ([id number]) [address] [address] ABSOLUTE NEUTROPHIL 4.7 X10E9/L Normal 1.5-6.6 [facility] Comment on above: Performed By: #### 1 9123-9, CBCA, BMP, LIVR #### [facility] ([id number]) [address] [address] Basophils/100 WBC (Bld) 0.7 % Normal [facility] Comment on above: Performed By: #### 1 9123-9, CBCA, BMP, LIVR #### [facility] ([id number]) [address] [place] [address] Eosinophils (Bld) [#/Vol] 0.0 10*3/uL Normal 0.0-0.4 [facility] Comment on above: Performed By: #### 1 9123-9, CBCA, BMP, LIVR #### [facility] ([id number]) [address] [address] [place] [address] Eosinophils/100 WBC (Bld) 0.7 % Normal [facility] Comment on above: Performed By: #### 1 9123-9, CBCA, BMP, LIVR #### [facility] ([id number]) [address], [facility] [address] [place] [address] Erythrocyte distribution width (RBC) [Ratio] 14.3 % Normal 11.5-15.0 [facility] Comment on above: Performed By: #### 1 9123-9, CBCA, BMP, LIVR #### [facility] ([id number]) [address] [address] [place] [address] Hematocrit (Bld) [Volume fraction] 31.1 % Low 39-49 [facility] Comment on above: Performed By: #### 1 9123-9, CBCA, BMP, LIVR #### [facility] ([id number]) [address] [address] [place] [address] Hemoglobin (Bld) [Mass/Vol] 10.6 g/dL Low 13.0-17.0 [facility] Comment on above: Performed By: #### 1 9123-9, CBCA, BMP, LIVR #### [facility] ([id number]) [address] [address] [place] [address] Lymphocytes (Bld) [#/Vol] 0.9 10*3/uL Low 1.0-3.5 [facility] Comment on above: Performed By: #### 1 9123-9, CBCA, BMP, LIVR #### [facility] ([id number]) [address] [place] [address] Lymphocytes/100 WBC (Bld) 15.9 % Normal [facility] Comment on above: Performed By: #### 1 9123-9, CBCA, BMP, LIVR #### [facility] ([id number]) [address] [place] [address] MCH (RBC) [Entitic mass] 33.8 pg Normal 27-34 [facility] Comment on above: Performed By: #### 1 9123-9, CBCA, BMP, LIVR #### [facility] ([id number]) [address] [place] [address] MCHC (RBC) [Mass/Vol] 34.0 g/dL Normal 32-36 [facility] Comment on above: Performed By: #### 1 9123-9, CBCA, BMP, LIVR #### [facility] ([id number]) [address] [place] [address] MCV (RBC) [Entitic vol] 99 fL Normal 80-100 [facility] Comment on above: Performed By: #### 1 9123-9, CBCA, BMP, LIVR #### [facility] ([id number]) [address] [place] [address] Monocytes (Bld) [#/Vol] 0.2 10*3/uL Normal 0-0.9 [facility] Comment on above: Performed By: #### 1 9123-9, CBCA, BMP, LIVR #### [facility] ([id number]) [address] [place] [address] Monocytes/100 WBC (Bld) 3.7 % Normal [facility] Comment on above: Performed By: #### 1 9123-9, CBCA, BMP, LIVR #### [facility] ([id number]) [address] [place] [address] Neutrophils/100 WBC (Bld) 79.0 % Normal [facility] Comment on above: Performed By: #### 1 9123-9, CBCA, BMP, LIVR #### [facility] ([id number]) [address] [place] [address] Platelet mean volume (Bld) [Entitic vol] 6.9 fL Low 7-12 [facility] Comment on above: Performed By: #### 1 9123-9, CBCA, BMP, LIVR #### [facility] ([id number]) [address] [place] [address] Platelets (Bld) [#/Vol] 308 10*3/uL Normal 150-450 [facility] Comment on above: Performed By: #### 1 9123-9, CBCA, BMP, LIVR #### [facility] ([id number]) [address] [place] [address] RBC COUNT 3.13 X10E12/L Low 4.10-5.70 [facility] Comment on above: Performed By: #### 1 9123-9, CBCA, BMP, LIVR #### [facility] ([id number]) [address] [place] [address] WBC (Bld) [#/Vol] 5.9 10*3/uL Normal 4.0-11.0 [facility] Comment on above: Performed By: #### 1 9123-9, CBCA, BMP, LIVR #### [facility] ([id number]) [address] [place] [address] COMPREHENSIVE METABOLIC PANE Raymond 03-08-2023 Albumin [Mass/Vol] 3.5 g/dL Normal 3.2-5.3 [facility] Comment on above: Performed By: #### 1 9123-9, CBCA, BMP, LIVR #### [facility] ([id number]) [address] [place] [address] ALP [Catalytic activity/Vol] 57 U/L Normal 39-130 [facility] Comment on above: Performed By: #### 1 9123-9, CBCA, BMP, LIVR #### [facility] ([id number]) [address] [place] [address] ALT [Catalytic activity/Vol] 39 U/L Normal 0-40 [facility] Comment on above: Performed By: #### 1 9123-9, CBCA, BMP, LIVR #### [facility] ([id number]) [address] [place] [address] Anion gap [Moles/Vol] 6 mmol/L Normal 5-15 [facility] Comment on above: Performed By: #### 1 9123-9, CBCA, BMP, LIVR #### [facility] ([id number]) [address] [place] [address] AST [Catalytic activity/Vol] 27 U/L Normal 0-41 [facility] Comment on above: Performed By: #### 1 9123-9, CBCA, BMP, LIVR #### [facility] ([id number]) [address] [place] [address] Bilirubin [Mass/Vol] 0.3 mg/dL Normal 0.3-1.2 [facility] Comment on above: Performed By: #### 1 9123-9, CBCA, BMP, LIVR #### [facility] ([id number]) [address] [place] [address] Calcium [Mass/Vol] 8.6 mg/dL Normal 8.5-10.5 [facility] Comment on above: Performed By: #### 1 9123-9, CBCA, BMP, LIVR #### [facility] ([id number]) [address] [place] [address] Chloride [Moles/Vol] 101 mmol/L Normal 98-109 [facility] Comment on above: Performed By: #### 1 9123-9, CBCA, BMP, LIVR #### [facility] ([id number]) [address] [place] [address] CO2 [Moles/Vol] 28 mmol/L Normal 22-32 [facility] Comment on above: Performed By: #### 1 9123-9, CBCA, BMP, LIVR #### [facility] ([id number]) [address] [address] [place] [address] Creatinine [Mass/Vol] 0.80 mg/dL Normal 0.60-1.30 [facility] Comment on above: Result Comment: METH OD TRACEABLE TO IDMS STANDARD Performed By: #### 1 9123-9, CBCA, BMP, LIVR #### [facility] ([id number]) [address] [address] [place] [address] eGFR (CKD-EPI) NON-RACE DEPENDENT >90 Normal >59 [facility] Comment on above: Result Comment: Reported eGFR is based on the CKD-EPI 1 equation that does not use a race coefficient. Performed By: #### 1 9123-9, CBCA, BMP, LIVR #### [facility] ([id number]) [address] [place] [address] Glucose [Mass/Vol] 88 mg/dL Normal 65-99 [facility] Comment on above: Performed By: #### 1 9123-9, CBCA, BMP, LIVR #### [facility] ([id number]) [address] [place] [address] Potassium [Moles/Vol] 4.6 mmol/L Normal 3.5-5.0 [facility] Comment on above: Performed By: #### 1 9123-9, CBCA, BMP, LIVR #### [facility] ([id number]) [address] [place] [address] Protein [Mass/Vol] 6.6 g/dL Normal 6.0-8.0 [facility] Comment on above: Performed By: #### 1 9123-9, CBCA, BMP, LIVR #### [facility] ([id number]) [address] [place] [address] Sodium [Moles/Vol] 135 mmol/L Normal 134-146 [facility] Comment on above: Performed By: #### 1 9123-9, CBCA, BMP, LIVR #### [facility] ([id number]) [address], [facility] [address] [place] [address] Urea nitrogen [Mass/Vol] 14 mg/dL Normal 5-23 [facility] Comment on above: Performed By: #### 1 9123-9, CBCA, BMP, LIVR #### [facility] ([id number]) [address] [place] [address] SODIUMon 03-08-2023 Sodium [Moles/Vol] 134 mmol/L Normal 134-146 [facility] Comment on above: Performed By: #### 1 9123-9, CBCA, BMP, LIVR #### [facility] ([id number]) [address] [place] [address] CBC AND AUTO DIFFon 03-07-19 ABSOLUTE BASOPHIL 0.0 X10E9/L Normal 0.0-0.2 [facility] Comment on above: Performed By: #### 1 9123-9, CBCA, BMP, LIVR #### [facility] ([id number]) [address] [address] [place] [address] ABSOLUTE NEUTROPHIL 5.6 X10E9/L Normal 1.5-6.6 [facility] Comment on above: Performed By: #### 1 9123-9, CBCA, BMP, LIVR #### [facility] ([id number]) [address] [place] [address] Basophils/100 WBC (Bld) 0.7 % Normal [facility] Comment on above: Performed By: #### 1 9123-9, CBCA, BMP, LIVR #### [facility] ([id number]) [address] [place] [address] Eosinophils (Bld) [#/Vol] 0.1 10*3/uL Normal 0.0-0.4 [facility] Comment on above: Performed By: #### 1 9123-9, CBCA, BMP, LIVR #### [facility] ([id number]) [address] [place] [address] Eosinophils/100 WBC (Bld) 1.0 % Normal [facility] Comment on above: Performed By: #### 1 9123-9, CBCA, BMP, LIVR #### [facility] ([id number]) [address] [place] [address] Erythrocyte distribution width (RBC) [Ratio] 14.5 % Normal 11.5-15.0 [facility] Comment on above: Performed By: #### 1 9123-9, CBCA, BMP, LIVR #### [facility] ([id number]) [address] [place] [address] Hematocrit (Bld) [Volume fraction] 36.3 % Low 39-49 [facility] Comment on above: Performed By: #### 1 9123-9, CBCA, BMP, LIVR #### [facility] ([id number]) [address] [place] [address] Hemoglobin (Bld) [Mass/Vol] 12.3 g/dL Low 13.0-17.0 [facility] Comment on above: Performed By: #### 1 9123-9, CBCA, BMP, LIVR #### [facility] ([id number]) [address] [address] Lymphocytes (Bld) [#/Vol] 1.1 10*3/uL Normal 1.0-3.5 [facility] Comment on above: Performed By: #### 1 9123-9, CBCA, BMP, LIVR #### [facility] ([id number]) [address] [facility] [address] [place] [address] Lymphocytes/100 WBC (Bld) 15.1 % Normal [facility] Comment on above: Performed By: #### 1 9123-9, CBCA, BMP, LIVR #### [facility] ([id number]) [address], [facility] [address] [place] [address] MCH (RBC) [Entitic mass] 33.3 pg Normal 27-34 [facility] Comment on above: Performed By: #### 1 9123-9, CBCA, BMP, LIVR #### [facility] ([id number]) [address] [facility] [address] [place] [address] MCHC (RBC) [Mass/Vol] 33.8 g/dL Normal 32-36 [facility] Comment on above: Performed By: #### 1 9123-9, CBCA, BMP, LIVR #### [facility] ([id number]) [address] [address] MCV (RBC) [Entitic vol] 99 fL Normal 80-100 [facility] Comment on above: Performed By: #### 1 9123-9, CBCA, BMP, LIVR #### [facility] ([id number]) [address] [address] [place] [address] Monocytes (Bld) [#/Vol] 0.3 10*3/uL Normal 0-0.9 [facility] Comment on above: Performed By: #### 1 9123-9, CBCA, BMP, LIVR #### [facility] ([id number]) [address] [place] [address] Monocytes/100 WBC (Bld) 4.8 % Normal [facility] Comment on above: Performed By: #### 1 9123-9, CBCA, BMP, LIVR #### [facility] ([id number]) [address] [facility] [address] [place] [address] Neutrophils/100 WBC (Bld) 78.4 % Normal [facility] Comment on above: Performed By: #### 1 9123-9, CBCA, BMP, LIVR #### [facility] ([id number]) [address] [place] [address] Platelet mean volume (Bld) [Entitic vol] 7.0 fL Normal 7-12 [facility] Comment on above: Performed By: #### 1 9123-9, CBCA, BMP, LIVR #### [facility] ([id number]) [address], [address] [place] [address] Platelets (Bld) [#/Vol] 324 10*3/uL Normal 150-450 [facility] Comment on above: Performed By: #### 1 9123-9, CBCA, BMP, LIVR #### [facility] ([id number]) [address], [address] [place] [address] RBC COUNT 3.68 X10E12/L Low 4.10-5.70 [facility] Comment on above: Performed By: #### 1 9123-9, CBCA, BMP, LIVR #### [facility] ([id number]) [address], [address] [place] [address] WBC (Bld) [#/Vol] 7.1 10*3/uL Normal 4.0-11.0 [facility] Comment on above: Performed By: #### 1 9123-9, CBCA, BMP, LIVR #### [facility] ([id number]) [address], [address] [place] [address] COMPREHENSIVE METABOLIC PANE Raymond 03-07-2023 Albumin [Mass/Vol] 3.8 g/dL Normal 3.2-5.3 [facility] Comment on above: Performed By: #### 1 9123-9, CBCA, BMP, LIVR #### [facility] ([id number]) [address], [address] [place] [address] ALP [Catalytic activity/Vol] 63 U/L Normal 39-130 [facility] Comment on above: Performed By: #### 1 9123-9, CBCA, BMP, LIVR #### [facility] ([id number]) [address], [address] [place] [address] ALT [Catalytic activity/Vol] 48 U/L High 0-40 [facility] Comment on above: Performed By: #### 1 9123-9, CBCA, BMP, LIVR #### [facility] ([id number]) [address], [address] [place] [address] Anion gap [Moles/Vol] 8 mmol/L Normal 5-15 [facility] Comment on above: Performed By: #### 1 9123-9, CBCA, BMP, LIVR #### [facility] ([id number]) [address] [place] [address] AST [Catalytic activity/Vol] 37 U/L Normal 0-41 [facility] Comment on above: Performed By: #### 1 9123-9, CBCA, BMP, LIVR #### [facility] ([id number]) [address], [address] [place] [address] Bilirubin [Mass/Vol] 0.3 mg/dL Normal 0.3-1.2 [facility] Comment on above: Performed By: #### 1 9123-9, CBCA, BMP, LIVR #### [facility] ([id number]) [address], [address] [place] [address] Calcium [Mass/Vol] 9.0 mg/dL Normal 8.5-10.5 [facility] Comment on above: Performed By: #### 1 9123-9, CBCA, BMP, LIVR #### [facility] ([id number]) [address], [facility] [address] [place] [address] Chloride [Moles/Vol] 97 mmol/L Low 98-109 [facility] Comment on above: Performed By: #### 1 9123-9, CBCA, BMP, LIVR #### [facility] ([id number]) [address], [facility] [address] [place] [address] CO2 [Moles/Vol] 25 mmol/L Normal 22-32 [facility] Comment on above: Performed By: #### 1 9123-9, CBCA, BMP, LIVR #### [facility] ([id number]) [address], [facility] [address] [place] [address] Creatinine [Mass/Vol] 0.85 mg/dL Normal 0.60-1.30 [facility] Comment on above: Result Comment: METH OD TRACEABLE TO IDMS STANDARD Performed By: #### 1 9123-9, CBCA, BMP, LIVR #### [facility] ([id number]) [address], [facility] [address] [place] [address] eGFR (CKD-EPI) NON-RACE DEPENDENT >90 Normal >59 [facility] Comment on above: Result Comment: Reported eGFR is based on the CKD-EPI 2020 equation that does not use a race coefficient. Performed By: #### 1 9123-9, CBCA, BMP, LIVR #### [facility] ([id number]) [address], [address] [place] [address] Glucose [Mass/Vol] 92 mg/dL Normal 65-99 [facility] Comment on above: Performed By: #### 1 9123-9, CBCA, BMP, LIVR #### [facility] ([id number]) [address], [address] [place] [address] Potassium [Moles/Vol] 4.5 mmol/L Normal 3.5-5.0 [facility] Comment on above: Performed By: #### 1 9123-9, CBCA, BMP, LIVR #### [facility] ([id number]) [address], [address] [place] [address] Protein [Mass/Vol] 7.1 g/dL Normal 6.0-8.0 [facility] Comment on above: Performed By: #### 1 9123-9, CBCA, BMP, LIVR #### [facility] ([id number]) [address], [address] [place] [address] Sodium [Moles/Vol] 130 mmol/L Low 134-146 [facility] Comment on above: Performed By: #### 1 9123-9, CBCA, BMP, LIVR #### [facility] ([id number]) [address], [address] [place] [address] Urea nitrogen [Mass/Vol] 9 mg/dL Normal 5-23 [facility] Comment on above: Performed By: #### 1 9123-9, CBCA, BMP, LIVR #### [facility] ([id number]) [address], [address] [place] [address] Cortisol [Mass/Vol]on 2023 CORTISOL 11.7 ug/dL Normal [facility] Comment on above: Result Comment: Due to the diurnal variation of cortisol levels in normal subjects, all cortisol measurements should be referenced to the time of day of sample collection. AM Cortisol Age>=6 6.7-22.4 ug/dL PM Cortisol Age>=6 <10 ug/dL Performed By: #### 1 9123-9, CBCA, BMP, LIVR #### [facility] ([id number]) [address], [address] [place] [address] SODIUMon 03-07-2023 Sodium [Moles/Vol] 133 mmol/L Low 134-146 [facility] Comment on above: Performed By: #### 1 9123-9, CBCA, BMP, LIVR #### [facility] ([id number]) [address], [address] [place] [address] Sodium [Moles/Vol] 129 mmol/L Low 134-146 [facility] Comment on above: Performed By: #### 1 9123-9, CBCA, BMP, LIVR #### [facility] ([id number]) [address], [address] [place] [address] Sodium [Moles/Vol] 129 mmol/L Low 134-146 [facility] Comment on above: Performed By: #### 1 9123-9, CBCA, BMP, LIVR #### [facility] ([id number]) [address], [address] [place] [address] THYROID PROFILEon 03-07-2023 Free T4 [Mass/Vol] 0.62 ng/dL Normal 0.61-1.60 [facility] Comment on above: Performed By: #### 1 9123-9, CBCA, BMP, LIVR #### [facility] ([id number]) [address], [address] [place] [address] TSH 2.86 uIU/mL Normal 0.49-4.67 [facility] Comment on above: Performed By: #### 1 9123-9, CBCA, BMP, LIVR #### [facility] ([id number]) [address], [address] [place] [address] URIC ACIDon 03-07-2023 Urate [Mass/Vol] 4.1 mg/dL Normal 2.6-7.2 [facility] Comment on above: Performed By: #### 1 9123-9, CBCA, BMP, LIVR #### [facility] ([id number]) [address] [place] [address] [address] WO CONT[address] CT BRAIN WO CONT CT BRAIN WO CONT CLINICAL INFORMATION: Chronic headache, new features or increased frequency; transient alteration of awareness. TECHNIQUE: CT head without contrast. All CT scans at this facility use dose modulation, iterative reconstruction, and/or weight based dosing when appropriate to reduce radiation dose to as low as reasonably achievable. COMPARISON: 02/10/2023. FINDINGS: Postsurgical changes left frontal craniotomy. No acute intracranial hemorrhage or mass effect. Moderate to severe global parenchymal atrophy with ex vacuo dilation of the ventricles. Confluent periventricular white matter hypodensities, most commonly seen in setting of chronic microvascular ischemic change. Left frontal encephalomalacia. The visible orbital contents, paranasal sinuses, and infratemporal soft tissues are within normal limits. IMPRESSION: * No acute intracranial findings, by CT. Approved by Resident Maynor Marvin DO on 03/06/2023 3:16 AM I, Rey Chang MD have personally reviewed the image(s) and agree with and/or edited the report Finalized by Rey Chang MD on 03/06/2023 3:25 AM Normal [facility] Cortisol [Mass/Vol]on 2023 CORTISOL 9.9 ug/dL Normal [facility] Comment on above: Result Comment: Due to the diurnal variation of cortisol levels in normal subjects, all cortisol measurements should be referenced to the time of day of sample collection. AM Cortisol Age>=6 6.7-22.4 ug/dL PM Cortisol Age>=6 <10 ug/dL Performed By: #### 2 4331-1, 2692-2, THYR, 2951-2, 3084-1, 2142- ####[facility] ([id number])[address] [address] Lipid 1996 panelon 4 Cholesterol [Mass/Vol] 144 mg/dL Low 150-200 Pr [facility] Comment on above: Performed By: #### 2 4331-1, 2692-2, THYR, 2951-2, 3084-1, 2142- ####[facility] ([id number])[address] [address] Cholesterol in HDL [Mass/Vol] 56 mg/dL Normal >39 [facility] Comment on above: Result Comment: HDL <40 mg/dL - High Risk HDL > or = 40mg/dL- Desirable HDL >60 mg/dL - Negative Risk Performed By: #### 2 4331-1, 2692-2, THYR, 2951-2, 3084-1, 2142- ####[facility] ([id number])[address], [address] [address] Cholesterol in LDL [Mass/Vol] 77 mg/dL Normal <130 [facility] Comment on above: Result Comment: LDL <100 mg/dL - Desirable LDL >160 mg/dL - High Risk Performed By: #### 2 4331-1, 2692-2, THYR, 2951-2, 3084-1, 2142-6 ####[facility] ([id number])[address], [address] [address] Cholesterol in VLDL [Mass/Vol] 11 mg/dL Normal 0-30 [facility] Comment on above: Performed By: #### 2 4331-1, 2692-2, THYR, 2951-2, 3084-1, 2142-6 ####[facility] ([id number])[address], [address] [address] CHOLESTEROL:HDL 2.6 Normal 1.0-5.0 [facility] Comment on above: Performed By: #### 2 4331-1, 2692-2, THYR, 295-2, 3083-1, 2142- ####[facility] ([id number])[address] [address] Triglyceride [Mass/Vol] 56 mg/dL Normal 27-150 [facility] Comment on above: Performed By: #### 2 4331-1, 2692-2, THYR, 2951-2, 3083-1, 2142-07 ####[facility] ([id number])[address] [address] Osmolality (U) [Osmolality]o n 03-06-2023 URINE OSMOLALITY 470 mOsm/kg H2 Normal 300-1300 [facility] Comment on above: Performed By: #### 2 955-3, 5-5 ####[facility] ([id number])[address], [address] [place] [address] Osmolality [Osmolality]on OSMOLALITY 277 mOsm/kg H2 Low 280-300 [facility] Comment on above: Performed By: #### 2 4331-1, 2692-2, THYR, 2951-2, 3084-1, 2142-6 ####[facility] ([id number])[address] [address] SODIUMon 03-06-2023 Sodium [Moles/Vol] 132 mmol/L Low 134-146 [facility] Comment on above: Performed By: #### 1 9123-9, CBCA, BMP, LIVR #### [facility] ([id number]) [address], [address] [place] [address] Sodium [Moles/Vol] 135 mmol/L Normal 134-146 [facility] Comment on above: Performed By: #### 1 9123-9, CBCA, BMP, LIVR #### [facility] ([id number]) [address], [address] [place] [address] Sodium [Moles/Vol] 133 mmol/L Low 134-146 [facility] Comment on above: Performed By: #### 2 4331-1, 2692-2, THYR, 2951-2, 3084-1, 2142- ####[facility] ([id number])[address], [address] [address] THYROID PROFILEon 03-06-2023 Free T4 [Mass/Vol] 0.84 ng/dL Normal 0.61-1.60 [facility] Comment on above: Performed By: #### 2 4331-1, 2692-2, THYR, 2951-2, 3084-1, 2142- ####[facility] ([id number])[address] [address] TSH 1.83 uIU/mL Normal 0.49-4.67 [facility] Comment on above: Performed By: #### 2 4331-1, 2692-2, THYR, 2951-2, 3084-1, 2142- ####[facility] ([id number])[address] [address] Troponin I.cardiac (Bld) [Ma ss/Vol]on 03-06-2023 PORTABLE TROPONIN <0.01 Normal 0.00-0.08 [facility] Comment on above: Result Comment: NEW REFERENCE RANGE Performed By: #### 4 2757-5 #### [facility] ([id number]) [address] [place] [address] URIC ACIDon 03-06-2023 Urate [Mass/Vol] 3.8 mg/dL Normal 2.6-7.2 [facility] Comment on above: Performed By: #### 2 4331-1, 2692-2, THYR, 2951-2, 3084-1, 2143-6 ####[facility] ([id number])[address] [place] [address] URINE CULTUREon 03-06-2023 Bacteria identified Cx Nom (U) CULTURE RESULTS >100,000 ORGANISMS/mL STAPHYLOCOCCUS AUREUS Organism: STAPHYLOCOCCUS AUREUS Antibiotic Interpretation HANNA Status CEFAZOLIN S F OXACILLIN S <=0.25 F TRIMETH/SULFAMETHOXAZ OLE S <=.5/9.5 F VANCOMYCIN S <=0.5 F DOXYCYCLINE S <=0.5 F Susceptible [facility] Comment on above: Performed By: #### 1 9123-9, CBCA, BMP, LIVR #### [facility] ([id number]) [address], [address] [place] [address] URINE SODIUM,RANDOMon 2023 Sodium (U) [Moles/Vol] 90 mmol/L Normal Pr [facility] Comment on above: Performed By: #### 2 955-3, 2695-5 ####[facility] ([id number])[address] [address] URN MACROSCOPIC NURon 2023 BILIRUBIN BENIGNO Negative Normal NEG [facility] Comment on above: Performed By: #### N UM #### [facility] ([id number]) [address] [place] [address] BLOOD/HGB BENIGNO Negative Normal NEG [facility] Comment on above: Performed By: #### N UM #### [facility] ([id number]) [address] [facility] [place] [address] GLUCOSE BENIGNO Negative Normal NEG [facility] Comment on above: Performed By: #### N UM #### [facility] ([id number]) [address] [facility] [place] [place] [address] KETONES BENIGNO Negative Normal NEG [facility] Comment on above: Performed By: #### N UM #### [facility] ([id number]) [address] [facility] [place] [place] [address] LEUKOCYTE ESTERASE BENIGNO Small Abnormal NEG Pr [facility] Comment on above: Performed By: #### N UM #### [facility] ([id number]) [address] [facility] [place] [place] [address] NITRITE BENIGNO Negative Normal NEG [facility] Comment on above: Performed By: #### N UM #### [facility] ([address] [place] [address]) [address] [facility] [place] [place] [address] PH BENIGNO 7.5 Normal 5.0-8.5 [facility] Comment on above: Performed By: #### N UM #### [facility] ([id number]) [address] [facility] [place] [place] [address] PROTEIN BENIGNO Negative Normal NEG [facility] Comment on above: Performed By: #### N UM #### [facility] ([id number]) [address] [facility] [place] [place] [address] SPECIFIC GRAVITY BENIGNO 1.020 Normal 1.003-1.035 [facility] Comment on above: Performed By: #### N UM #### [facility] ([id number]) [address] [facility] [place] [address] UROBILINOGEN BENIGNO 0.2 eu/dL Normal <1.1 [facility] Comment on above: Performed By: #### N UM #### [facility] ([id number]) [address] [place] [address] Urine collection deviceon ER EXTRA URINES ER EXTRA URINE ORDER IN PROCESS Normal [facility] AMMONIAon 03-05-2023 Ammonia (P) [Moles/Vol] 47 umol/L Normal 18-72 [facility] Comment on above: Result Comment: NEW REFERENCE RANGE Performed By: #### 1 6362-6 #### [facility] ([id number]) [address] [place] [address] BASIC METABOLIC PANLon 03-05 Anion gap [Moles/Vol] 6 mmol/L Normal 5-15 [facility] Comment on above: Performed By: #### 1 9123-9, CBCA, BMP, LIVR #### [facility] ([id number]) [address], [address] [place] [address] Calcium [Mass/Vol] 9.4 mg/dL Normal 8.5-10.5 [facility] Comment on above: Performed By: #### 1 9123-9, CBCA, BMP, LIVR #### [facility] ([id number]) [address], [address] [place] [address] Chloride [Moles/Vol] 93 mmol/L Low 98-109 [facility] Comment on above: Performed By: #### 1 9123-9, CBCA, BMP, LIVR #### [facility] ([id number]) [address], [address] [place] [address] CO2 [Moles/Vol] 29 mmol/L Normal 22-32 [facility] Comment on above: Performed By: #### 1 9123-9, CBCA, BMP, LIVR #### [facility] ([id number]) [address], [address] [place] [address] Creatinine [Mass/Vol] 0.82 mg/dL Normal 0.60-1.30 [facility] Comment on above: Result Comment: METH OD TRACEABLE TO IDMS STANDARD Performed By: #### 1 9123-9, CBCA, BMP, LIVR #### [facility] ([id number]) [address] [address] [place] [address] eGFR (CKD-EPI) NON-RACE DEPENDENT >90 Normal >59 [facility] Comment on above: Result Comment: Reported eGFR is based on the CKD-EPI 2020 equation that does not use a race coefficient. Performed By: #### 1 9123-9, CBCA, BMP, LIVR #### [facility] ([id number]) [address] [address] Glucose [Mass/Vol] 102 mg/dL High 65-99 [facility] Comment on above: Performed By: #### 1 9123-9, CBCA, BMP, LIVR #### [facility] ([id number]) [address], [address] [address] Potassium [Moles/Vol] 4.6 mmol/L Normal 3.5-5.0 [facility] Comment on above: Performed By: #### 1 9123-9, CBCA, BMP, LIVR #### [facility] ([id number]) [address] [address] Sodium [Moles/Vol] 128 mmol/L Low 134-146 [facility] Comment on above: Performed By: #### 1 9123-9, CBCA, BMP, LIVR #### [facility] ([id number]) [address] [address] Urea nitrogen [Mass/Vol] 14 mg/dL Normal 5-23 [facility] Comment on above: Performed By: #### 1 9123-9, CBCA, BMP, LIVR #### [facility] ([id number]) [address], [address] [place] [address] CBC AND AUTO DIFFon 03-05-19 ABSOLUTE BASOPHIL 0.0 X10E9/L Normal 0.0-0.2 [facility] Comment on above: Performed By: #### 1 9123-9, CBCA, BMP, LIVR #### [facility] ([id number]) [address], [address] [place] [address] ABSOLUTE NEUTROPHIL 5.5 X10E9/L Normal 1.5-6.6 [facility] Comment on above: Performed By: #### 1 9123-9, CBCA, BMP, LIVR #### [facility] ([id number]) [address] [place] [address] Basophils/100 WBC (Bld) 0.7 % Normal [facility] Comment on above: Performed By: #### 1 9123-9, CBCA, BMP, LIVR #### [facility] ([id number]) [address] [place] [address] Eosinophils (Bld) [#/Vol] 0.0 10*3/uL Normal 0.0-0.4 [facility] Comment on above: Performed By: #### 1 9123-9, CBCA, BMP, LIVR #### [facility] ([id number]) [address], [address] [place] [address] Eosinophils/100 WBC (Bld) 0.6 % Normal [facility] Comment on above: Performed By: #### 1 9123-9, CBCA, BMP, LIVR #### [facility] ([id number]) [address] [place] [address] Erythrocyte distribution width (RBC) [Ratio] 14.5 % Normal 11.5-15.0 [facility] Comment on above: Performed By: #### 1 9123-9, CBCA, BMP, LIVR #### [facility] ([id number]) [address] [place] [address] Hematocrit (Bld) [Volume fraction] 34.7 % Low 39-49 [facility] Comment on above: Performed By: #### 1 9123-9, CBCA, BMP, LIVR #### [facility] ([id number]) [address], [facility] [address] [place] [address] Hemoglobin (Bld) [Mass/Vol] 12.0 g/dL Low 13.0-17.0 [facility] Comment on above: Performed By: #### 1 9123-9, CBCA, BMP, LIVR #### [facility] ([id number]) [address] [address] Lymphocytes (Bld) [#/Vol] 1.1 10*3/uL Normal 1.0-3.5 [facility] Comment on above: Performed By: #### 1 9123-9, CBCA, BMP, LIVR #### [facility] ([id number]) [address], [address] [address] Lymphocytes/100 WBC (Bld) 15.4 % Normal [facility] Comment on above: Performed By: #### 1 9123-9, CBCA, BMP, LIVR #### [facility] ([id number]) [address], [facility] [address] [place] [address] MCH (RBC) [Entitic mass] 34.4 pg High 27-34 [facility] Comment on above: Performed By: #### 1 9123-9, CBCA, BMP, LIVR #### [facility] ([id number]) [address], [facility] [address] [place] [address] MCHC (RBC) [Mass/Vol] 34.7 g/dL Normal 32-36 [facility] Comment on above: Performed By: #### 1 9123-9, CBCA, BMP, LIVR #### [facility] ([id number]) [address] [place] [address] MCV (RBC) [Entitic vol] 99 fL Normal 80-100 [facility] Comment on above: Performed By: #### 1 9123-9, CBCA, BMP, LIVR #### [facility] ([id number]) [address] [place] [address] Monocytes (Bld) [#/Vol] 0.3 10*3/uL Normal 0-0.9 [facility] Comment on above: Performed By: #### 1 9123-9, CBCA, BMP, LIVR #### [facility] ([id number]) [address] [place] [address] Monocytes/100 WBC (Bld) 4.6 % Normal [facility] Comment on above: Performed By: #### 1 9123-9, CBCA, BMP, LIVR #### [facility] ([id number]) [address] [place] [address] Neutrophils/100 WBC (Bld) 78.7 % Normal [facility] Comment on above: Performed By: #### 1 9123-9, CBCA, BMP, LIVR #### [facility] ([id number]) [address] [place] [address] Platelet mean volume (Bld) [Entitic vol] 6.8 fL Low 7-12 [facility] Comment on above: Performed By: #### 1 9123-9, CBCA, BMP, LIVR #### [facility] ([id number]) [address] [place] [address] Platelets (Bld) [#/Vol] 352 10*3/uL Normal 150-450 [facility] Comment on above: Performed By: #### 1 9123-9, CBCA, BMP, LIVR #### [facility] ([id number]) [address] [place] [address] RBC COUNT 3.49 X10E12/L Low 4.10-5.70 [facility] Comment on above: Performed By: #### 1 9123-9, CBCA, BMP, LIVR #### [facility] ([id number]) [address] [place] [address] WBC (Bld) [#/Vol] 7.0 10*3/uL Normal 4.0-11.0 [facility] Comment on above: Performed By: #### 1 9123-9, CBCA, BMP, LIVR #### [facility] ([id number]) [address] [place] [address] Glucose Glucometer (BldC) [M ass/Vol]on 03-05-2023 Glucose [Mass/Vol] 106 mg/dL High 65-99 [facility] LIVER PANELon 03-05-2023 Albumin [Mass/Vol] 4.2 g/dL Normal 3.2-5.3 [facility] Comment on above: Performed By: #### 1 9123-9, CBCA, BMP, LIVR #### [facility] ([id number]) [address] [place] [address] ALP [Catalytic activity/Vol] 74 U/L Normal 39-130 [facility] Comment on above: Performed By: #### 1 9123-9, CBCA, BMP, LIVR #### [facility] ([id number]) [address], [address] [place] [address] ALT [Catalytic activity/Vol] 70 U/L High 0-40 [facility] Comment on above: Performed By: #### 1 9123-9, CBCA, BMP, LIVR #### [facility] ([id number]) [address], [address] [place] [address] AST [Catalytic activity/Vol] 49 U/L High 0-41 [facility] Comment on above: Performed By: #### 1 9123-9, CBCA, BMP, LIVR #### [facility] ([id number]) [address], [address] [place] [id number] Bilirubin [Mass/Vol] 0.5 mg/dL Normal 0.3-1.2 [facility] Comment on above: Performed By: #### 1 9123-9, CBCA, BMP, LIVR #### [facility] ([id number]) [address], [address] [address] Bilirubin.direct [Mass/Vol] 0.1 mg/dL Normal 0.0-0.4 [facility] Comment on above: Performed By: #### 1 9123-9, CBCA, BMP, LIVR #### [facility] ([id number]) [address], [address] [address] Protein [Mass/Vol] 7.8 g/dL Normal 6.0-8.0 [facility] Comment on above: Performed By: #### 1 9123-9, CBCA, BMP, LIVR #### [facility] ([id number]) [address], [address] [address] MAGNESIUMon 03-05-2023 Magnesium [Mass/Vol] 2.1 mg/dL Normal 1.8-2.6 [facility] Comment on above: Performed By: #### 1 9123-9, CBCA, BMP, LIVR #### [facility] ([id number]) [address], [address] [address] SARS/FLU A+B/RSV by NAAT/Mol ecularon 03-05-2023 SARS/FLU A+B/RSV by NAAT/Molecular FLU A PCR Negative (qualifier value) FLU B PCR Negative (qualifier value) RSV by PCR Negative (qualifier value) SARS CoV 2 Not detected (qualifier value) NOTE The Xpert Xpress SARS-CoV-2/Flu/RSV Plus test is a rapid, multiplexed real-time RT-PCR test intended for the simultaneous qualitative detection and differentiation of SARS-CoV-2, influenza A, influenza B and respiratory syncytial virus (RSV) viral RNA from individuals suspected of respiratory viral infection consistent with COVID-19 by their healthcare provider. This test has not been validated in asymptomatic patients. The Xpert Xpress SARS-CoV-2 test is intended for use by qualified and trained operators who are performing tests using either [employer] or [employer] systems and is limited to laboratories that meet the CLIA requirements to perform high and moderate complexity tests. The Xpert Xpress SARS-CoV-2/Flu/RSV Plus is only for use under the Food and Drug Administration's Emergency Use Authorization. Results are for the simultaneous detection and differentiation of SARS-CoV-2, influenza A, influenza B and RSV nucleic acids in clinical specimens. SARS-CoV-2, influenza A, influenza B and RSV RNA identified by this test are generally detectable in upper respiratory samples during the acute phase of infection. Positive results are indicative of the presence of the identified virus, but do not rule out bacterial infection or co-infection with other pathogens not detected by this test. Clinical correlation with patient history and other diagnostic information is necessary to determine patient infection status. The agent detected may not be the definite cause of disease. Negative results do not preclude SARS-CoV-2, influenza A, influenza B and RSV infection and should not be used as the sole basis for treatment or other patient management decisions. Negative results must be combined with clinical observations, patient history and epidemiological information. An Invalid result may occur with specimen-associated inhibition unable to be resolved with specimen repeat. Fact Sheet for Healthcare Providers: https://www.fda.gov/m edia/830692/download Fact Sheet for Patients: https://www.fda.gov/m edia/760379/download Normal [facility] Comment on above: Performed By: #### C OVFLR #### [facility] ([id number]) [address] [place] [address], [address] [place] [address] lamoTRIgine [Mass/Vol]on LAMOTRIGINE 11.8 ug/mL Normal 1.0-13.0 [facility] Comment on above: Result Comment: NOTE This test was developed and its performance characteristics determined by [facility] ([facility]). It has not been cleared or approved by the FDA. [facility] is regulated under CLIA as qualified to perform high-complexity testing. This test is used for clinical purposes. It should not be regarded as investigational or for research. Test Performed By: [facility] [employer] [address] [place] [address] Tactical Response Group Officer: Aditya Allen III, M.D. CLIA #[id number] levETIRAcetam [Mass/Vol]on 0 03-05-2023 LEVETIRACETAM See Below Normal [facility] Comment on above: Result Comment: NOTE TEST RESULT FLAG UNIT REF.RANGE ------- Levetiracetam 3.8 L ug/mL 12.0-46.0 This test is not suitable for patients receiving treatment with the drug brivaracetam (Briviact). The drug causes an interference that may lead to falsely elevated levetiracetam results. Reference ranges and high/low indicator flags are provided as general guidelines only. The treating physician must determine appropriate target levels/dosing based on the specific clinical situation. This test was developed and its performance characteristics determined by [facility] ([facility]). It has not been cleared or approved by the FDA. [facility] is regulated under CLIA as qualified to perform high-complexity testing. This test is used for clinical purposes. It should not be regarded as investigational or for research. Test Performed By: [facility] [employer] [address] [place] [address] Tactical Response Group Officer: Aditya Allen III, M.D. CLIA #[id number] TSH w/ Reflex to Free T4on 0 06-19-2021 TSH 1.590 uIU/mL Normal 0.400-4.500 [facility] Nuclear Control Room Operator Comment on above: Performed By: #### T SH reflex FT4 #### [facility] [address] [place], [place] [id number] Free T4on 05-05-2021 Free T4 [Mass/Vol] 0.44 ng/dL Low 0.80-1.80 [facility] Specialist Comment on above: Performed By: #### T SH reflex FT4, FT4 #### [facility] [address], [place] [id number] TSH w/ Reflex to Free T4on 0 05-05-2021 FT4 reflex Free T4 Normal [facility] Specialist Comment on above: Performed By: #### T SH reflex FT4, FT4 #### [facility] [address], [place] [id number] TSH 14.450 uIU/mL High 0.400-4.500 [facility] Comment on above: Performed By: #### T SH reflex FT4, FT4 #### [facility] [address], [place] [id number] Complete Blood Count with Au to Diffon 03-27-2021 Erythrocyte distribution width (RBC) [Ratio] 12.9 % Normal 11.0-15.[address] [facility] Specialist Comment on above: Performed By: #### F T4, CBCAD, TSH reflex FT4, MDIFF, CMP #### [facility] [address], [place] [id number] Hematocrit (Bld) [Volume fraction] 35.8 % Low 38.5-50.[address] [facility] Specialist Comment on above: Performed By: #### F T4, CBCAD, TSH reflex FT4, MDIFF, CMP #### [facility] [address], [place] [id number] Hemoglobin (Bld) [Mass/Vol] 12.0 g/dL Low 13.0-17.[address] [facility] Specialist Comment on above: Performed By: #### F T4, CBCAD, TSH reflex FT4, MDIFF, CMP #### [facility] [address], [place] [id number] MCH (RBC) [Entitic mass] 32.9 pg Normal 27.0-33.0 [facility] Comment on above: Performed By: #### F T4, CBCAD, TSH reflex FT4, MDIFF, CMP #### [facility] [address], [place] [id number] MCHC (RBC) [Mass/Vol] 33.5 g/dL Normal 32.0-36.0 [facility] Comment on above: Performed By: #### F T4, CBCAD, TSH reflex FT4, MDIFF, CMP #### [facility] [address], [place] [id number] MCV (RBC) [Entitic vol] 98 fL Normal 80-100 [facility] Comment on above: Performed By: #### F T4, CBCAD, TSH reflex FT4, MDIFF, CMP #### [facility] [address], [place] [id number] Platelet mean volume (Bld) [Entitic vol] 10.10 fL Normal 7.50-12.50 [facility] Comment on above: Performed By: #### F T4, CBCAD, TSH reflex FT4, MDIFF, CMP #### [facility] [address], [place] [id number] Platelets (Bld) [#/Vol] 252 10*3/uL Normal 140-400 [facility] Comment on above: Performed By: #### F T4, CBCAD, TSH reflex FT4, MDIFF, CMP #### [facility] [address], [place] [id number] RBC (Bld) [#/Vol] 3.65 10*6/uL Low 4.20-5.80 [facility] Comment on above: Performed By: #### F T4, CBCAD, TSH reflex FT4, MDIFF, CMP #### [facility] [address], [place] [id number] RDW-SD 46.5 fL Normal 37.0-50.0 [facility] Comment on above: Performed By: #### F T4, CBCAD, TSH reflex FT4, MDIFF, CMP #### [facility] [address], [place] [id number] REFLEX Manual Differential Normal [place] Nuclear [facility] Room Operator Comment on above: Performed By: #### F T4, CBCAD, TSH reflex FT4, MDIFF, CMP #### [facility] [address], [place] [id number] WBC (Bld) [#/Vol] 4.3 10*3/uL Normal 3.8-11.0 [facility] Comment on above: Performed By: #### F T4, CBCAD, TSH reflex FT4, MDIFF, CMP #### [facility] [address], [place] [id number] Comprehensive Metabolic Pane [facility] 03-27-2021 Albumin [Mass/Vol] 3.8 g/dL Normal 3.6-5.1 [facility] Nuclear Control Room Operator Comment on above: Performed By: #### F T4, CBCAD, TSH reflex FT4, MDIFF, CMP #### [facility] [address], [place] [id number] Albumin/Globulin [Mass ratio] 1.2 {ratio} Normal 1.0-2.[address] [facility] Specialist Comment on above: Performed By: #### F T4, CBCAD, TSH reflex FT4, MDIFF, CMP #### [facility] [address], [place] [id number] ALP [Catalytic activity/Vol] 79 U/L Normal 40-[address] [facility] Specialist Comment on above: Performed By: #### F T4, CBCAD, TSH reflex FT4, MDIFF, CMP #### [facility] [address], [place] [id number] ALT [Catalytic activity/Vol] 21 U/L Normal 9-[address] [facility] Specialist Comment on above: Result Comment: 01/29 Female reference range changed. Performed By: #### F T4, CBCAD, TSH reflex FT4, MDIFF, CMP #### [facility] [address], [place] [id number] Anion gap [Moles/Vol] 15 mmol/L Normal 12-20 [facility] Comment on above: Result Comment: Effe ctive 03/06/2019 reference range changed. Performed By: #### F T4, CBCAD, TSH reflex FT4, MDIFF, CMP #### [facility] [address], [place] [id number] AST [Catalytic activity/Vol] 24 U/L Normal 10-40 [facility] Comment on above: Performed By: #### F T4, CBCAD, TSH reflex FT4, MDIFF, CMP #### [facility] [address], [place] [id number] Bilirubin [Mass/Vol] 0.36 mg/dL Normal 0.30-1.20 [facility] Comment on above: Performed By: #### F T4, CBCAD, TSH reflex FT4, MDIFF, CMP #### [facility] [address], [place] [id number] BUN/CREA 20 Ratio Normal 6-22 [facility] Comment on above: Performed By: #### F T4, CBCAD, TSH reflex FT4, MDIFF, CMP #### [facility] [address], [place] [id number] Calcium [Mass/Vol] 9.4 mg/dL Normal 8.6-10.2 [facility] Comment on above: Performed By: #### F T4, CBCAD, TSH reflex FT4, MDIFF, CMP #### [facility] [address], [place] [id number] Chloride [Moles/Vol] 102 mmol/L Normal 98-107 [facility] Comment on above: Performed By: #### F T4, CBCAD, TSH reflex FT4, MDIFF, CMP #### [facility] [address], [place] [id number] CO2 [Moles/Vol] 27 mmol/L Normal 20-31 [facility] Comment on above: Performed By: #### F T4, CBCAD, TSH reflex FT4, MDIFF, CMP #### [facility] [address], [place] [id number] Creatinine [Mass/Vol] 0.7 mg/dL Normal 0.7-1.4 [facility] Comment on above: Performed By: #### F T4, CBCAD, TSH reflex FT4, MDIFF, CMP #### [facility] [address], [place] [id number] eGFRAA 144 mL/min/1.73m2 Normal >60 [facility] Specialist Comment on above: Performed By: #### F T4, CBCAD, TSH reflex FT4, SERGIO, CMP #### [facility] [address], [place] [id number] eGFRNAA 119 mL/min/1.73m2 Normal >60 [facility] Specialist Comment on above: Performed By: #### F T4, CBCAD, TSH reflex FT4, MDIFF, CMP #### [facility] [address], [place] [id number] Globulin (S) [Mass/Vol] 3.2 g/dL Normal 1.9-3.7 [facility] Comment on above: Performed By: #### F T4, CBCAD, TSH reflex FT4, SERGIO, CMP #### [facility] [address] [place], [place] [id number] Glucose [Mass/Vol] 94 mg/dL Normal 65-99 Sylvia patel [place] Nuclear Control Room Operator Comment on above: Result Comment: For FASTING Glucose --- ADA reference ranges: Normal 65-99 mg/dl Prediabetes 100-125 Diabetes >/= 126 Performed By: #### F T4, CBCAD, TSH reflex FT4, SERGIO, CMP #### [facility] [address] [place], [place] [id number] Potassium [Moles/Vol] 4.0 mmol/L Normal 3.5-5.5 [facility] Nuclear Control Room Operator Comment on above: Performed By: #### F T4, CBCAD, TSH reflex FT4, SERGIO, CMP #### [facility] [address], [place] [id number] Protein [Mass/Vol] 7.0 g/dL Normal 6.1-8.1 Sylvia patel [place] [facility] Room Operator Comment on above: Performed By: #### F T4, CBCAD, TSH reflex FT4, IFF, CMP #### [facility] [address], [place] [id number] Sodium [Moles/Vol] 140 mmol/L Normal 135-146 Sylvia patel [place] [facility] Control Room Operator Comment on above: Performed By: #### F T4, CBCAD, TSH reflex FT4, MDIFF, CMP #### [facility] [address], [place] [id number] Urea nitrogen [Mass/Vol] 14 mg/dL Normal 7-25 [facility] Comment on above: Performed By: #### F T4, CBCAD, TSH reflex FT4, SERGIO, CMP #### [facility] [address], [place] [id number] Free T4on 03-27-2021 Free T4 [Mass/Vol] 1.11 ng/dL Normal 0.80-1.80 [facility] Comment on above: Performed By: #### F T4, CBCAD, TSH reflex FT4, MDRADHA, CMP #### [facility] [address] [place], [place] [id number] Manual Differentialon 2021 BAND 0.0 % Normal [facility] Comment on above: Performed By: #### F T4, CBCAD, TSH reflex FT4, SERGIO, CMP #### [facility] [address], [place] [id number] BANDABS 0.0 K/uL Normal [facility] Comment on above: Performed By: #### F T4, CBCAD, TSH reflex FT4, SERGIO, CMP #### [facility] [address], [place] [id number] BASO 0.0 % Normal [facility] Comment on above: Performed By: #### F T4, CBCAD, TSH reflex FT4, SERGIO, CMP #### [facility] [address], [place] [id number] BASOABS 0.0 K/uL Normal 0.0-0.2 [facility] Comment on above: Performed By: #### F T4, CBCAD, TSH reflex FT4, MDRADHA, CMP #### [facility] [address] [place], [place] [id number] EOS 1.0 % Normal [facility] Comment on above: Performed By: #### F T4, CBCAD, TSH reflex FT4, MDRADHA, CMP #### [facility] [address] [place], [place] [id number] EOSABS 0.0 K/uL Normal 0.0-0.[address] [facility] Specialist Comment on above: Performed By: #### F T4, CBCAD, TSH reflex FT4, MDIFF, CMP #### [facility] [address], [place] [id number] LYMPH 43.0 % Normal [facility] Specialist Comment on above: Performed By: #### F T4, CBCAD, TSH reflex FT4, MDIFF, CMP #### [facility] [address], [place] [id number] LYMPHABS 1.9 K/uL Normal 0.9-3.[address] [facility] Specialist Comment on above: Performed By: #### F T4, CBCAD, TSH reflex FT4, MDIFF, CMP #### [facility] [address] [place], [place] [id number] LYMPHATYP 1.0 % Normal 0.9-3.[address] [facility] Specialist Comment on above: Performed By: #### F T4, CBCAD, TSH reflex FT4, MDIFF, CMP #### [facility] [address] [place], [place] [id number] MONO 4.0 % Normal [facility] Specialist Comment on above: Performed By: #### F T4, CBCAD, TSH reflex FT4, MDIFF, CMP #### [facility] [address] [place], [place] [id number] MONOABS 0.2 K/uL Normal 0.2-0.[address] [facility] Specialist Comment on above: Performed By: #### F T4, CBCAD, TSH reflex FT4, MDIFF, CMP #### [facility] [address] [place], [place] [id number] PLT EST Adequate Normal [facility] Specialist Comment on above: Performed By: #### F T4, CBCAD, TSH reflex FT4, MDIFF, CMP #### [facility] [address], [place] [id number] RBCMORPH Normal Normal [facility] Specialist Comment on above: Performed By: #### F T4, CBCAD, TSH reflex FT4, MDIFF, CMP #### [facility] [address] [place], [place] [id number] SEG 51.0 % Normal [facility] Specialist Comment on above: Performed By: #### F T4, CBCAD, TSH reflex FT4, SERGIO, CMP #### [facility] [address], [place] [id number] SEGABS 2.2 K/uL Normal 1.5-7.8 [facility] Comment on above: Performed By: #### F T4, CBCAD, TSH reflex FT4, SERGIO, CMP #### [facility] [address] [place], [place] [id number] WBC 4.3 K/uL Normal 3.8-11.[address] [facility] Specialist Comment on above: Performed By: #### F T4, CBCAD, TSH reflex FT4, SERGIO, CMP #### [facility] [address] [place], [place] [id number] TSH w/ Reflex to Free T4on 0 03-27-2021 FT4 reflex Free T4 Normal [facility] Comment on above: Performed By: #### F T4, CBCAD, TSH reflex FT4, SERGIO, CMP #### [facility] [address] [place], [place] [id number] TSH 0.072 uIU/mL Low 0.400-4.500 [facility] Nuclear Control Room Operator Comment on above: Performed By: #### F T4, CBCAD, TSH reflex FT4, SERGIO, CMP #### [facility] [address] [place], [place] [id number] Free T4on 02-19-2021 Free T4 [Mass/Vol] 1.12 ng/dL Normal 0.80-1.80 [facility] Comment on above: Performed By: #### T SH reflex FT4, FT4 #### [facility] [address] [place], [place] [id number] TSH w/ Reflex to Free T4on 1 04-22-2020 FT4 reflex Free T4 Normal [facility] Comment on above: Performed By: #### T SH reflex FT4, FT4 #### [facility] [address] [place], [place] [id number] TSH 0.101 uIU/mL Low 0.400-4.500 [facility] Nuclear Control Room Operator Comment on above: Performed By: #### T SH reflex FT4, FT4 #### [facility] [address] [place], [place] [id number] COVID Quick Testingon 2020 Result Negative [employer] Other Coding Summary.on 04-16-2020 Coding Summary. CODING DATE: 04/16/2020 FINAL [facility] STATUS: PAYOR: Medicare ADMIT DX: REASON FOR VISIT DX: R05 Cough FINAL DX: PRINCIPAL: R05 Cough SECONDARY: Z20.828 Contact with and (suspected) exposure to other viral communicable diseases PYMT PROC APC STAT DESCRIPTION DOCTOR NAME DATE NOTE: The code number assigned matches the documented diagnosis and / or procedure in the patient's chart. However, the narrative phrase printed from the coding software may appear abbreviated, or result in slightly different terminology. Coded By: Tawny Jiang CphT Date Saved: 04/16/2020 01:01 pm Normal [facility] Medication Refillon 04-12-19 21 Medication Refill [id number] Normal [facility] CBC AUTO DIFFon 04-06-2020 Basophils (Bld) [#/Vol] 0.0 103/ul Normal 0.0-0.1 [facility] Comment on above: Performed By: #### C BC ####[facility] [address] [place], [place] [id number] Karolina Basophils/100 WBC (Bld) 0.8 % Normal 0.2-2.0 [facility] Comment on above: Performed By: #### C BC ####[facility] [address] [place], [place] [address]Hizbta Karolina Eosinophils (Bld) [#/Vol] 0.0 103/ul Normal 0.0-0.7 [facility] Comment on above: Performed By: #### C BC ####[facility] [address] [place] [address]Qawupn Karolina Eosinophils/100 WBC (Bld) 0.8 % Critically low 0.9-7.0 [facility] Comment on above: Performed By: #### C BC ####[facility] [address] [place], [place] [address]Jpldbs Karolina Erythrocyte distribution width (RBC) [Ratio] 13.6 % Normal 11.0-15.0 [facility] Comment on above: Performed By: #### C BC ####[facility] [address] [place] [address] Akrolina Hematocrit (Bld) [Volume fraction] 33.8 % Critically low 42.0-54.0 [facility] Comment on above: Performed By: #### C BC ####[facility] [address] [place] [address] Karolina Hemoglobin (Bld) [Mass/Vol] 11.2 g/dL Critically low 14.0-18.0 [facility] Comment on above: Performed By: #### C BC ####[facility] [address] [place] [address] Karolina IG # 0.01 10e3/ul Normal 0.00-0.03 [facility] Comment on above: Performed By: #### C BC ####[facility] [address] [place] [address] Karolina IG % 0.2 % Normal 0.0-0.5 [facility] Comment on above: Performed By: #### C BC ####[facility] [address] [place] [address] Karolina Lymphocytes (Bld) [#/Vol] 1.7 103/ul Normal 1.2-3.8 [facility] Comment on above: Performed By: #### C BC ####[facility] [address] [place], [place] [address]james Turcios Lymphocytes/100 WBC (Bld) 35.5 % Normal 20.5-60.0 [facility] Comment on above: Performed By: #### C BC ####[facility] [address] [place] [address] Karolina MANUAL DIFF REQ NO Normal [facility] Comment on above: Performed By: #### C BC ####[facility] [address] [place] [address] Karolina MCH (RBC) [Entitic mass] 33.1 pg Normal 25.9-34.0 [facility] Comment on above: Performed By: #### C BC ####[facility] [address] [place] [address]Yligjr Karen MCHC (RBC) [Mass/Vol] 33.1 g/dL Normal 29.9-35.2 [facility] Comment on above: Performed By: #### C BC ####[facility] [address] [place] [address]Yctpgz Karen MCV (RBC) [Entitic vol] 100.0 fL Critically high 80.0-94.0 [facility] Comment on above: Performed By: #### C BC ####[facility] [address] [place] [address]Jaaddr Karolina Monocytes (Bld) [#/Vol] 0.3 103/ul Normal 0.3-0.8 [facility] Comment on above: Performed By: #### C BC ####[facility] [address] [place] [address] 497[address]Rqsedv Karen Monocytes/100 WBC (Bld) 6.6 % Normal 1.7-12.0 [facility] Comment on above: Performed By: #### C BC ####[facility] [address] [place] [address]45[address]Ofydrx Karolina Neutrophils (Bld) [#/Vol] 2.7 103/ul Normal 1.4-6.5 [facility] Comment on above: Performed By: #### C BC ####[facility] [address] [place] [address]85[address]Hbszsg Karen Neutrophils/100 WBC (Bld) 56.1 % Normal 43.0-75.0 [facility] Comment on above: Performed By: #### C BC ####[facility] [address] [place] [address]Hovvgr Karen Platelet mean volume (Bld) [Entitic vol] 9.8 fL Normal 9.5-13.5 [facility] Comment on above: Performed By: #### C BC ####[facility] [address] [place], [place] [address]Ffippd Karen Platelets (Bld) [#/Vol] 249 103/ul Normal 150-450 [facility] Comment on above: Performed By: #### C BC ####[facility] [address] [place], [place] [address]Ixyvfg Karolina RBC (Bld) [#/Vol] 3.38 106/ul Critically low 4.70-6.10 [facility] Comment on above: Performed By: #### C BC ####[facility] [address] [place], [place] [address]Mapkhr Karolina WBC (Bld) [#/Vol] 4.7 103/ul Normal 4.0-11.0 [facility] Comment on above: Performed By: #### C BC ####[facility] [address] [place] [id number] Randen CRPon 04-06-2020 CRP [Mass/Vol] 1.4 mg/dL Critically high <=1.0 [facility] Comment on above: Performed By: #### C MP, CRP #### [facility] [address] [place] [address] Tano Turcios ER URINE PROFILEon Bilirubin [Mass/Vol] Negative Normal NEGATIVE [facility] Comment on above: Performed By: #### E RUR #### [facility] [address] [place] [address] Tano Karolina BLOOD Negative Normal NEGATIVE [facility] Comment on above: Performed By: #### E RUR #### [facility] [address] [place] [address] Tano Karolina Clarity (U) CLEAR Normal CLEAR [facility] Comment on above: Performed By: #### E RUR #### [facility] [address] [place] [address] Tano Karolina Color (U) LT. YELLOW Normal YELLOW [facility] Comment on above: Performed By: #### E RUR #### [facility] [address] [place] [address] Tano Karolina ERUAHD A micrscopic examination will be performed if indicated. Normal [facility] Comment on above: Performed By: #### E RUR #### [facility] [address] [place], [place] [id number] Tano Karolina Glucose [Mass/Vol] Negative Normal NEGATIVE [facility] Comment on above: Performed By: #### E RUR #### [facility] [address] [place] [address] Tano Karolina Ketones Ql (U) Negative Normal NEGATIVE [facility] Comment on above: Performed By: #### E RUR #### [facility] [address] [place], [place] [id number] Tano Karolina Nitrite Ql (U) Negative Normal NEGATIVE [facility] Comment on above: Performed By: #### E RUR #### [facility] [address] [place] [address] Tano Karolina pH (Bld) 6.5 Normal 5-9 [facility] Comment on above: Performed By: #### E RUR #### [facility] [address] [place] [address] Tano Karolina Protein (U) [Mass/Vol] Negative Normal NEGAT YOANA/ TRACE [facility] Comment on above: Performed By: #### E RUR #### [facility] [address] [place] [address] Tano Karolina SPEC GRAVITY 1.010 Normal 1.005-<=1.[address] [place] [address] Comment on above: Performed By: #### E RUR #### [facility] [address] [place] [address] Tano Karolina UR MICRO IND NOT INDICATED Normal [facility] Comment on above: Performed By: #### E RUR #### [facility] [address] [place], [place] [id number] Tano Karolina Urobilinogen Qn (U) 0.2 EU/dl Normal 0.2 - 1.0 [facility] Comment on above: Performed By: #### E RUR #### [facility] [address] [place], [place] [id number] Tano Karolina WBC (Bld) [#/Vol] Negative Normal NEGATIVE [facility] Comment on above: Performed By: #### E RUR #### [facility] [address] [place], [place] [id number] Tano Turcios PROF 14(COMP METB)on 021 Albumin [Mass/Vol] 3.0 g/dL Critically low 3.5-5.0 [facility] Comment on above: Performed By: #### C MP, CRP #### [facility] [address] [place], [place] [id number] Tano Karolina Albumin/Globulin [Mass ratio] 0.8 {ratio} Normal [facility] Comment on above: Performed By: #### C MP, CRP #### [facility] [address] [place], [place] [address] Tano Karolina ALP [Catalytic activity/Vol] 69 U/L Normal 38-126 [facility] Comment on above: Performed By: #### C MP, CRP #### [facility] [address] [place], [place] [address] Tano Karolina ALT [Catalytic activity/Vol] 27 U/L Normal 21-72 [facility] Comment on above: Performed By: #### C MP, CRP #### [facility] [address] [place], [place] [address] Tano Karolina Anion gap [Moles/Vol] 10.4 mmol/L Normal [facility] Comment on above: Performed By: #### C MP, CRP #### [facility] [address] [place], [place] [address] Tano Karolina AST [Catalytic activity/Vol] 19 U/L Normal 17-59 [facility] Comment on above: Performed By: #### C MP, CRP #### [facility] [address] [place], [place] [address] Tano Karolina Bilirubin Ql (U) 0.4 mg/dL Normal 0.2-1.3 [facility] Comment on above: Performed By: #### C MP, CRP #### [facility] [address] [place], [place] [address] Tano Karolina Calcium [Mass/Vol] 8.8 mg/dL Normal 8.4-10.2 [facility] Comment on above: Performed By: #### C MP, CRP #### [facility] [address] [place] [address] Tano Karolina Chloride [Moles/Vol] 104 mmol/L Normal 98-107 [facility] Comment on above: Performed By: #### C MP, CRP #### [facility] [address] [place] [address] Tano Karolina CO2 [Moles/Vol] 30.1 mmol/L Critically high 22.0-30.0 [facility] Comment on above: Performed By: #### C MP, CRP #### [facility] [address] [place] [address] Tano Karolina Creatinine [Mass/Vol] 0.88 mg/dL Normal 0.66-1.25 [facility] Comment on above: Performed By: #### C MP, CRP #### [facility] [address] [place] [address] Tano Karolina EGFR-AF GIBRALTARIAN >60 Normal >=60 The [facility] Comment on above: Performed By: #### C MP, CRP #### [facility] [address] [place] [address] Tano Karolina EGFR-NON AF GIBRALTARIAN >60 Normal >=60 [facility] Comment on above: Performed By: #### C MP, CRP #### [facility] [address] [place] [address] Tano Karolina Globulin (S) [Mass/Vol] 3.8 g/dL Normal [facility] Comment on above: Performed By: #### C MP, CRP #### [facility] [address] [place] [address] Tano Karolina Glucose [Mass/Vol] 87 mg/dL Normal 74-106 [facility] Comment on above: Performed By: #### C MP, CRP #### [facility] [address] [place] [address] Tano Karolina Potassium [Moles/Vol] 4.5 mmol/L Normal 3.4-5.0 [facility] Comment on above: Performed By: #### C MP, CRP #### [facility] [address] [place], [place] [address] Tano Karolina Protein [Mass/Vol] 6.8 g/dL Normal 6.1-8.2 [facility] Comment on above: Performed By: #### C MP, CRP #### [facility] [address] [place] [id number] Tano Karolina Sodium [Moles/Vol] 140 mmol/L Normal 137-145 [facility] Comment on above: Performed By: #### C MP, CRP #### [facility] [address] [id number] Tano Karolina Urea nitrogen [Mass/Vol] 16.0 mg/dL Normal 9.0-20.0 [facility] Comment on above: Performed By: #### C MP, CRP #### [facility] [address] [place], [place] [address] Tano Karolina Urea nitrogen/Creatinine [Mass ratio] 18.2 mg/mg Normal [facility] Comment on above: Performed By: #### C MP, CRP #### [facility] [address] [place], [place] [address] Tano Karolina CBC AUTO DIFFon 04-05-2020 Basophils (Bld) [#/Vol] 0.0 103/ul Normal 0.0-0.1 [facility] Comment on above: Performed By: #### C BC ####[facility] [address] [place] [id number] Karolina Basophils/100 WBC (Bld) 0.5 % Normal 0.2-2.0 [facility] Comment on above: Performed By: #### C BC ####[facility] [address] [place], [place] [address]Gerken Karolina Eosinophils (Bld) [#/Vol] 0.0 103/ul Normal 0.0-0.7 [facility] Comment on above: Performed By: #### C BC ####[facility] [address] [place] [phone] Karolina Eosinophils/100 WBC (Bld) 0.5 % Critically low 0.9-7.0 [facility] Comment on above: Performed By: #### C BC ####[facility] [address] [place], [place] [address]Gerken Karolina Erythrocyte distribution width (RBC) [Ratio] 13.5 % Normal 11.0-15.0 [facility] Comment on above: Performed By: #### C BC ####[facility] [address] [place], [place] [address]Gerken Karolina Hematocrit (Bld) [Volume fraction] 35.0 % Critically low 42.0-54.0 [facility] Comment on above: Performed By: #### C BC ####[facility] [address] [place], [place] [address]Gerken Karolina Hemoglobin (Bld) [Mass/Vol] 11.6 g/dL Critically low 14.0-18.0 [facility] Comment on above: Performed By: #### C BC ####[facility] [address] [place], [place] [address]Gerken Karolina IG # 0.03 10e3/ul Normal 0.00-0.03 [facility] Comment on above: Performed By: #### C BC ####[facility] [address] [place], [place] [address]Gerken Karolina IG % 0.5 % Normal 0.0-0.5 [facility] Comment on above: Performed By: #### C BC ####[facility] [address] [place], [place] [address]Gerken Karolina Lymphocytes (Bld) [#/Vol] 0.8 103/ul Critically low 1.2-3.8 [facility] Comment on above: Performed By: #### C BC ####[facility] [address] [place] [address] Karolina Lymphocytes/100 WBC (Bld) 12.6 % Critically low 20.5-60.0 [facility] Comment on above: Performed By: #### C BC ####[facility] [address] [place], [place] [address]Aovgwa Karolina MANUAL DIFF REQ NO Normal [facility] Comment on above: Performed By: #### C BC ####[facility] [address] [place], [place] [address]Woxvqk Karolina MCH (RBC) [Entitic mass] 32.9 pg Normal 25.9-34.0 [facility] Comment on above: Performed By: #### C BC ####[facility] [address] [place], [place] [address]Gxcbrh Karolina MCHC (RBC) [Mass/Vol] 33.1 g/dL Normal 29.9-35.2 [facility] Comment on above: Performed By: #### C BC ####[facility] [address] [place] [address] Karolina MCV (RBC) [Entitic vol] 99.2 fL Critically high 80.0-94.0 [facility] Comment on above: Performed By: #### C BC ####[facility] [address] [place] [address]Qonxin Karolina Monocytes (Bld) [#/Vol] 0.3 103/ul Normal 0.3-0.8 [facility] Comment on above: Performed By: #### C BC ####[facility] [address] [place] [address]Lptgjl Karolina Monocytes/100 WBC (Bld) 5.3 % Normal 1.7-12.0 [facility] Comment on above: Performed By: #### C BC ####[facility] [address] [place] [address]Kelbyi Karolina Neutrophils (Bld) [#/Vol] 5.0 103/ul Normal 1.4-6.5 [facility] Comment on above: Performed By: #### C BC ####[facility] [address] [place], [place] [address]Ofhsws Karolina Neutrophils/100 WBC (Bld) 80.6 % Critically high 43.0-75.0 [facility] Comment on above: Performed By: #### C BC ####[facility] [address] [place], [place] [address]Qordjl Karen Platelet mean volume (Bld) [Entitic vol] 9.6 fL Normal 9.5-13.5 [facility] Comment on above: Performed By: #### C BC ####[facility] [address] [place], [place] [address]Ezszav Karen Platelets (Bld) [#/Vol] 249 103/ul Normal 150-450 [facility] Comment on above: Performed By: #### C BC ####[facility] [address] [place], [place] [address]Slbhit Karen RBC (Bld) [#/Vol] 3.53 106/ul Critically low 4.70-6.10 [facility] Comment on above: Performed By: #### C BC ####[facility] [address] [place], [place] [address]Cgiykl Karen WBC (Bld) [#/Vol] 6.2 103/ul Normal 4.0-11.0 [facility] Comment on above: Performed By: #### C BC ####[facility] [address] [place], [place] [address] HEAD WO CONon 04-05-2020 CT HEAD WO CON EXAMINATION: CT HEAD WO CON HISTORY: DISORIENTATION, UNSPECIFIED COMPARISON: No relevant comparison available. TECHNIQUE: Axial CT images were obtained without IV contrast. Dose reduction techniques were achieved by using automated exposure control and/or adjustment of mA and/or kV according to patient size and/or use of iterative reconstruction technique. FINDINGS: BRAIN: Large area of encephalomalacic changes involving the left frontal lobe. No hemorrhage, mass, mass effect. Generalized atrophy, slightly advanced. CSF SPACES: Expected dilation of the anterior horn of the left lateral ventricle. SKULL: Prior left frontal craniotomy. SINUSES: No visible mucosal thickening on the limited views. ORBITS: No appreciable abnormality on the limited views. OTHER: Negative IMPRESSION: 1. No intracranial hemorrhage or appreciable acute abnormality. 2. 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 Subsequent ex vacuo dilation of the anterior left lateral ventricle. Overlying craniotomy. 3. Generalized atrophy which appears slightly age advanced. Findings were discussed with the emergency department via telephone at 2:50 PM. Electronically authenticated by: MARLIN DAVIS Date: 2020-04-05 15:07 Normal [facility] LIPASEon 04-05-2020 Lipase [Catalytic activity/Vol] 148.0 U/L Normal 23.0-300.0 [facility] Comment on above: Performed By: #### C JOHN LIPA #### [facility] [address] [place] [address] Tano Turcios PH VENOUS BLOODon 04-05-2020 PCO2 VENOUS 60.6 mmHg Critically high 40.0-52.0 [facility] Comment on above: Performed By: #### P HVEN #### [facility] [address] [place] [address] Tano Karolina pH VENOUS 7.32 Critically low 7.33-7.43 [facility] Comment on above: Performed By: #### P HVEN #### [facility] [address] [place] [address] Tano Turcios POINT OF CARE GLUCOSEon Glucose [Mass/Vol] 127 mg/dL Critically high 74-106 [facility] Comment on above: Performed By: #### P OCGLUC #### [facility] [address] [place] [address] Tano Turcios PROF 14(COMP METB)on 021 Albumin [Mass/Vol] 3.4 g/dL Critically low 3.5-5.0 [facility] Comment on above: Performed By: #### C MP, LIPA #### [facility] [address] [place] [address] Tano Turcios Albumin/Globulin [Mass ratio] 0.8 {ratio} Normal [facility] Comment on above: Performed By: #### C MP LIPA #### [facility] [address] [place] [address] Tano Turcios ALP [Catalytic activity/Vol] 82 U/L Normal 38-126 [facility] Comment on above: Performed By: #### C JOHN LIPA #### [facility] [address] [place] [address] Tano Karolina ALT [Catalytic activity/Vol] 29 U/L Normal 21-72 [facility] Comment on above: Performed By: #### C JOHN, LIPA #### [facility] [address] [place] [address] Tano Karolina Anion gap [Moles/Vol] 12.7 mmol/L Normal [facility] Comment on above: Performed By: #### C JOHN, LIPA #### [facility] [address] [place] [address] Tano Karolina AST [Catalytic activity/Vol] 25 U/L Normal 17-59 [facility] Comment on above: Performed By: #### C JOHN, LIPA #### [facility] [address] [place] [address] Tano Karolina Bilirubin Ql (U) 0.3 mg/dL Normal 0.2-1.3 The [facility] Comment on above: Performed By: #### C JOHN, LIPA #### [facility] [address] [place] [address] Tano Karolina Calcium [Mass/Vol] 9.1 mg/dL Normal 8.4-10.2 [facility] Comment on above: Performed By: #### C JOHN, LIPA #### [facility] [address] [address] Tano Karolina Chloride [Moles/Vol] 100 mmol/L Normal 98-107 [facility] Comment on above: Performed By: #### C JOHN, LIPA #### [facility] [address] [place] [address] Tano Karolina CO2 [Moles/Vol] 28.4 mmol/L Normal 22.0-30.0 The [facility] Comment on above: Performed By: #### C JOHN, LIPA #### [facility] [address] [place] [address] Tano Karolina Creatinine [Mass/Vol] 0.91 mg/dL Normal 0.66-1.25 [facility] Comment on above: Performed By: #### C JOHN, LIPA #### [facility] [address] [place], [place] [id number] Tano Karolina EGFR-AF GIBRALTARIAN >60 Normal >=60 [facility] Comment on above: Performed By: #### C JOHN, LIPA #### [facility] [address] [place] [address] Tano Karolina EGFR-NON AF GIBRALTARIAN >60 Normal >=60 [facility] Comment on above: Performed By: #### C MP, LIPA #### [facility] [address] [place] [address] Tano Karolina Globulin (S) [Mass/Vol] 4.1 g/dL Normal [facility] Comment on above: Performed By: #### C JOHN, LIPA #### [facility] [address] [place] [address] Tano Karolina Glucose [Mass/Vol] 126 mg/dL Critically high 74-106 [facility] Comment on above: Performed By: #### C JOHN, LIPA #### [facility] [address] [place] [address] Tano Karolina Potassium [Moles/Vol] 4.1 mmol/L Normal 3.4-5.0 [facility] Comment on above: Performed By: #### C JOHN, LIPA #### [facility] [address] [place] [address] Tano Karolina Protein [Mass/Vol] 7.5 g/dL Normal 6.1-8.2 [facility] Comment on above: Performed By: #### C JOHN, LIPA #### [facility] [address] [place] [address] Tano Karolina Sodium [Moles/Vol] 137 mmol/L Normal 137-145 [facility] Comment on above: Performed By: #### C JOHN, LIPA #### [facility] [address] [place] [address] Tano Karolina Urea nitrogen [Mass/Vol] 21.0 mg/dL Critically high 9.0-20.0 [facility] Comment on above: Performed By: #### C JOHN, LIPA #### [facility] [address] [place] [address] Tano Turcios Urea nitrogen/Creatinine [Mass ratio] 23.1 mg/mg Normal [facility] Comment on above: Performed By: #### C JOHN, RUBI #### [facility] [address] [place] [address] Tano Turcios Rapid Covid-19 PCR (CVDRPD)o n 04-05-2020 MarginLeft LDT Info SEE BELOW Normal [facility] Comment on above: Result Comment: This test is not yet approved or cleared by the [place] Food and Drug Administration (FDA) . This test was developed by [employer] [place]. The performance characteristics of this test were validated by [facility]. The results are not intended to be used as the sole means for clinical diagnosis or patient management decisions. [facility] is authorized under Clinical Laboratory Improvement Amendments (CLIA) to perform high-complexity testing. When diagnostic testing is negative, the possibility of a false negative should be considered in the context of a patients recent exposures and the presence of clinical signs and symptoms consistent with SARS-CoV-2. Performed By: #### C VDRPD #### [facility] [address] [place] [address] Tano Turcios SARS-CoV-2 NOT DETECTED Normal NOT DETECTED [facility] Comment on above: Result Comment: . Performed By: #### C VDRPD #### [facility] [address] [place] [address] Tano Turcios XR CHEST 1 Von 04-05-2020 XR CHEST 1 V EXAMINATION: XR CHES T 1 V HISTORY: CHEST PAIN, UNSPECIFIED COMPARISON: No relevant comparison available. FINDINGS: LUNGS: Underexpanded lungs with mild hazy opacities within the lung bases. VASCULATURE: No increased pulmonary vasculature. PLEURA: No pneumothorax, effusion, or pleural thickening. CARDIAC: No cardiomegaly or cardiac silhouette abnormality. MEDIASTINUM: No visible mass or adenopathy. BONES: No fracture or visible bone lesion. OTHER: Negative. IMPRESSION: 1. Low lung volume examination with mild bibasilar infiltrates versus atelectasis. No comparison studies. 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 Date of Absence: From: 03/04/2020 To: 03/04/2020 May Return to School On: 03/05/2020 Comments: Rapid COVID test 03/04/20 is NEGATIVE Sincerely, [facility] [address] [place] [address], [place] [address] Normal [facility] Rapid COVID Antigen ([facility])on 03-04-2020 Rapid COV Int NEG Ctl Pass Normal [facility] Comment on above: Performed By: #### 2 [id number] #### [facility] [address] [place] [address] Rapid COV Int POS Ctl Pass Normal [facility] Comment on above: Performed By: #### 2 [id number] #### [facility] [address] [place] [address] SARS-CoV-2 (COVID-19) RNA JESSICA+probe Ql (Unsp spec) Not detected Normal Not Detected [facility] Comment on above: Result Comment: The [employer]? System for Rapid Detection of SARS-CoV-2 is a chromatographic digital immunoassay intended for the direct and qualitative detection of SARS-CoV-2 nucleocapsid antigens in nasal swabs from individuals who are suspected of COVID-19 by their healthcare provider within the first five days of the onset of symptoms. Negative results should be treated as presumptive, do not rule out SARS-CoV-2 infection and should not be used as the sole basis for treatment or patient management decisions, including infection control decisions. Negative results should be considered in the context of a patient?s recent exposures, history and the presence of clinical signs and symptoms consistent with COVID-19, and confirmed with a molecular assay, if necessary, for patient management. For in vitro diagnostic use. In the [place], only for use under an Emergency Use Authorization. In the [place], this test has not been FDA cleared or approved; this test has been authorized by FDA under an EUA for use by authorized laboratories; use by laboratories certified under the CLIA, 42 U.S.C. ?263a, that meet requirements to perform moderate, high, or waived complexity tests and at the Point of Care (POC), i.e., in patient care settings operating under a CLIA Certificate of Waiver, Certificate of Compliance, or Certificate of Accreditation. This test has been authorized only for the detection of proteins from SARS-CoV-2, not for any other viruses or pathogens; and, in the [place], this test is only authorized for the duration of the declaration that circumstances exist justifying the authorization of emergency use of in vitro diagnostics for detection and/or diagnosis of the virus that causes COVID-19 under Section 564(b)(1) of the Act, 21 U.S.C. ? 360bbb-3(b)(1), unless the authorization is terminated or revoked sooner. Performed By: #### 2 [id number] #### [facility] [address] [place] [address] Employed in Healthcare NO Normal [facility] Comment on above: Performed By: #### 2 [id number] #### [facility] [address] [place] [address] First Test YES [facility] Comment on above: Performed By: #### 2 [id number] #### [facility] [address] [place] [address] Hospitalized? NO Normal [facility] Comment on above: Performed By: #### 2 [id number] #### [facility] [address] [place] [address] ICU NO [facility] Comment on above: Performed By: #### 2 [id number] #### [facility] [address] [place] [address] ? NO [facility] Comment on above: Performed By: #### 2 [id number] #### [facility] [address] [place] [address] Resides in a Congregate Care Setting NO Normal [facility] Comment on above: Performed By: #### 2 [id number] #### [facility] [address] [place] [address] Symptomatic as defined by CDC YES Normal [facility] Comment on above: Performed By: #### 2 [id number] #### [facility] [address] [place] [address] Consenton 12-04-2019 Consent [id number]:127 Normal [facility] Ambulatory Clinical Summaryo n 11-02-2019 Ambulatory Clinical Summary {[id number]}CD:[id number] Normal [facility] Endocrinology Office/Clinic Noteon 11-02-2019 Endocrinology Office/Clinic Note Chief Complaint Telephone visit follow-up remotely for hypo-natremia renal insufficiency hypothyroid and downs HPI Staff Patient here today to follow up on thyroid , hyponatremia Dx: Hypothyroid Meds: Levothyroxine 88 mcg , hydrocortisone 10 mg BID Refills? hydrocortisone 10 mg q am Recent labs: done on 06/10/2019 Recent imaging: none Do you have any of the following symptoms? Change in energy level? no Weight change? no Heat/cold intolerance? no Hair/skin/nail changes? no Change in bowels? no ROS per patient: Gastrointestinal: no diarrhea, no abdominal pain, no constipation, no vomiting. Genitourinary: no kidney stones, no dysuria/pain urinating, no urinating at night. Psychiatric: no depression, no anxiety/panic attacks, no sleep problems/insomnia. Musculoskeletal: no joint pain, no muscle aches, no history of falls, no broken bones. Skin: no rash, no dryness, no sweating. Endocrine: no hot flashes, no heat intolerance, no cold intolerance, no hair loss. Reproductive: no post-menopausal, no irregular periods, no erectile dysfunction, no sexual problems. This visit was conducted via two-way, real-time interactive video communications from my office using [employer] due to the restrictions of the COVID-19 pandemic. No physical exam was conducted other than those areas of the body visible to telecommunications with the patient located at [address] [place], [place] [address] [phone], with _ in attendance. If it is determined that the patient should be evaluated in the clinic, the patient will be directed to the appropriate clinic or venue. The patient or their guardian verbally consented to this visit. Video time was _ minutes with the patient face to face greater than 50% in addition to counseling and coordination of care. History of Present Illness The family is the one making the call and the history is taken from them as the patient has Down syndrome. He is physically doing well with no problems overall eating well no fever no cough no chills no falls and no fatigue no change in his status in general. His labs were done at [facility] and home I am awaiting the fax to come in Review of Systems Once again no new issues on the ROS the rest is as below Physical Exam This was a remote tele-visit exam was not done Assessment/Plan 1. Hypothyroid (E03.9: Hypothyroidism, unspecified) The patient had labs done at [facility] which are not back yet. The visit is done with his family as a patient has Down syndrome. I will continue his medications the same dose and labs to be reviewed further again in 3 months Ordered: Comprehensive Metabolic Panel Free T4 Thyroid Stimulating Hormone 2. Adrenal insufficiency (E27.40: Unspecified adrenocortical insufficiency) The patient's hydrocortisone has been reduced to 10 mg once in the morning he seems to be doing well on it and will continue to monitor his labs including electrolytes cortisol levels in the next 3 months. If he has hypotension or lethargy the patient is supposed to call me of the family will call me His hydrocortisone needs to be doubled at least if he is ill with a fever or other acute illness this was told to the family and then good physician should be called Ordered: hydrocortisone, 10 mg = 1 tab(s), Oral, BID, # 180 EA, Refills(s) 1, Pharmacy: [id number], Weight Measured Cortisol 3. Hyponatremia (E87.1: Hypo-osmolality and hyponatremia) Hyponatremia he has been taken off his salt pills for the last 1 month to see if he can do without them he appears to be clinically doing well as per his family however labs will be checked now in the next 3 months again. He is also her on hydrocortisone once a day in the morning only Ordered: Comprehensive Metabolic Panel 4. Hypogonadism male (E29.1: Testicular hypofunction) This is chronic and will continue to follow and monitor This visit was conducted via phone communications from my office due to the restrictions of the COVID-19 pandemic. No physical exam was conducted due to audio only communication with the patient located at [address] [place] [address] [phone], with sisterfamily likely of electrically will await cardio doctor's visit. If it is determined that the patient should be evaluated in person, the patient will be directed to the appropriate clinic or venue. The patient or their guardian verbally consented to this visit. Phone time was 20 minutes discussing health issues with counseling and coordination of care. Follow-up With When Contact Information Endocrinology Within 3 months [address] [place] [address]- Additional Instructions: Patient to have lab work and other tests 1 to 2 weeks prior to next appointment which will be discussed at the next visit. Refills will be done at office visits. Please make sure you have enough refills until the next appointment Patient Education Hypothyroidism Problem List/Past Medical History Ongo (more content not included)... Normal [facility] Comment on above: Result Comment: Elec tronically Signed By: EYAL HERNANDEZ, Stephanie\.br\Date and Time Signed: 11/02/19 13:32 EDT Lab Reportson 11-02-2019 Lab Reports [id number] .[id number]:127 Normal [facility] Patient Educationon 11-02-19 20 Patient Education Family Medicine Hypothyroidism The thyroid is a large gland located in the lower front of your neck. The thyroid gland helps control metabolism. Metabolism is how your body handles food. It controls metabolism with the hormone thyroxine. When this gland is underactive (hypothyroid), it produces too little hormone. CAUSES These include: ? Absence or destruction of thyroid tissue. ? Goiter due to iodine deficiency. ? Goiter due to medications. ? Congenital defects (since ). ? Problems with the pituitary. This causes a lack of TSH (thyroid stimulating hormone). This hormone tells the thyroid to machine turner more hormone. SYMPTOMS ? Lethargy (feeling as though you have no energy) ? Cold intolerance ? Weight gain (in spite of normal food intake) ? Dry skin ? Coarse hair ? Menstrual irregularity (if severe, may lead to infertility) ? Slowing of thought processes Cardiac problems are also caused by insufficient amounts of thyroid hormone. Hypothyroidism in the is cretinism, and is an extreme form. It is important that this form be treated adequately and immediately or it will lead rapidly to retarded physical and mental development. DIAGNOSIS To prove hypothyroidism, your caregiver may do blood tests and ultrasound tests. Sometimes the signs are hidden. It may be necessary for your caregiver to watch this illness with blood tests either before or after diagnosis and treatment. TREATMENT Low levels of thyroid hormone are increased by using synthetic thyroid hormone. This is a safe, effective treatment. It usually takes about four weeks to gain the full effects of the medication. After you have the full effect of the medication, it will generally take another four weeks for problems to leave. Your caregiver may start you on low doses. If you have had heart problems the dose may be gradually increased. It is generally not an emergency to get rapidly to normal. HOME CARE INSTRUCTIONS ? Take your medications as your caregiver suggests. Let your caregiver know of any medications you are taking or start taking. Your caregiver will help you with dosage schedules. ? As your condition improves, your dosage needs may increase. It will be necessary to have continuing blood tests as suggested by your caregiver. ? Report all suspected medication side effects to your caregiver. SEEK MEDICAL CARE IF: Seek medical care if you develop: ? Sweating. ? Tremulousness (tremors). ? Anxiety. ? Rapid weight loss. ? Heat intolerance. ? Emotional swings. ? Diarrhea. ? Weakness. SEEK IMMEDIATE MEDICAL CARE IF: You develop chest pain, an irregular heart beat (palpitations ), or a rapid heart beat. MAKE SURE YOU: ? Understand these instructions. ? Will watch your condition. ? Will get help right away if you are not doing well or get worse. Document Released: 02/15/2006 Document Revised: 05/09/2012 Document Reviewed: 10/05/2008 ExitCare? Patient Information ?2013 [employer]. Normal [facility] Basic Metabolic,Non-Fastingo n 03-28-2019 Anion gap [Moles/Vol] 6 mmol/L Normal 4-12 [facility] Comment on above: Performed By: #### L 400.4900, L500.2600 #### Main Laboratory ([facility]) [address] [place] [address] Matt Casarez MD Calcium [Mass/Vol] 9.20 mg/dL Normal 8.8-10.5 [facility] Comment on above: Performed By: #### L 400.4900, L500.2600 #### Main Laboratory ([facility]) [address] [place] [address] Matt Casarez MD Chloride [Moles/Vol] 96 mmol/L Low 101-111 [facility] Comment on above: Performed By: #### L 400.4900, L500.2600 #### Main Laboratory ([facility]) [address] [place] [address] Matt Casarez MD CO2 [Moles/Vol] 33 mmol/L High 21-32 [facility] Comment on above: Performed By: #### L 400.4900, L500.2600 #### Main Laboratory ([facility]) [address] [place] [address] Matt Casarez MD Creatinine [Mass/Vol] 0.67 mg/dL Normal 0.60-1.30 [facility] Comment on above: Performed By: #### L 400.4900, L500.2600 #### Main Laboratory ([facility]) [address] [place] [address] aMtt Casarez MD GFR/1.73 sq M predicted among non-blacks MDRD (S/P/Bld) [Vol rate/Area] mL/min/{1.73_m2} Normal [facility] Comment on above: Result Comment: Rayray harvey Kidney Disease stages by NKDF Stage eGFR I >90 II 60-89 III 30-59 IV 15-29 V <15 or dialysis AGE(years) AVERAGE GFR 50-59 93 ml/min/1.73 square meters Note:This result is normalized to 1.73 square meter body surface area. Height and weight are not factored. Performed By: #### L 400.4900, L500.2600 #### Main Laboratory ([facility]) [address] [place] [address] Matt Casarez MD Glucose [Mass/Vol] 89 mg/dL Normal 70-110 [facility] Comment on above: Result Comment: *Thi s reference range applies to fasting specimens only. Performed By: #### L 400.4900, L500.2600 #### Main Laboratory ([facility]) [address] [place] [address] Matt Casarez MD Potassium [Moles/Vol] 4.1 mmol/L Normal 3.6-5.0 [facility] Comment on above: Performed By: #### L 400.4900, L500.2600 #### Main Laboratory ([facility]) [address] [place] [address] Matt Casarez MD Sodium [Moles/Vol] 135 mmol/L Normal 135-145 [facility] Comment on above: Performed By: #### L 400.4900, L500.2600 #### Main Laboratory ([facility]) [address] [place] [address] Matt Casarez MD Urea nitrogen [Mass/Vol] 18 mg/dL Normal 7-20 [facility] Comment on above: Performed By: #### L 400.4900, L500.2600 #### Main Laboratory ([facility]) [address] [place] [address] Matt Casarez MD Magnesiumon 03-28-2019 Magnesium [Mass/Vol] 2.0 mg/dL Normal 1.8-2.5 [facility] Comment on above: Performed By: #### L 400.4900, L500.2600 #### Main Laboratory ([facility]) [address] [place] [address] Matt Casarez MD CBC WITHOUT DIFFERENTIALOrde red By: Bart Juárez on 03-27-2019 Erythrocyte distribution width (RBC) [Ratio] 17.8 % High 12 - 16 % [facility] Phone: Hematocrit (Bld) [Volume fraction] 30.9 % Low 40 - 49 % [employer] Phone: Hemoglobin (Bld) [Mass/Vol] 10.3 g/dL Low [employer] Phone: Interpretation and review of laboratory results Abnormal [employer] Phone: MCH (RBC) [Entitic mass] 32.5 pg 27.5 - 33 PG [facility] [employer] Phone: MCHC (RBC) [Mass/Vol] 33.3 g/dL [facility] [employer] Work Phone: MCV (RBC) [Entitic vol] 97.8 fL High [employer] Phone: Platelets (Bld) [#/Vol] 267 10*3/uL [facility] Phone: RBC (Bld) [#/Vol] 3.16 10*6/uL Low [employer] Phone: WBC (Bld) [#/Vol] 6.0 10*3/uL [employer] Phone: Main Laboratory ([facility])[address], [place] [phone] el Nivar, MDOrdering Provider: Bart Juárez [employer] Phone: CBC Without Differentialon 0 03-27-2019 Erythrocyte distribution width (RBC) [Ratio] 17.8 % High 12.0-16.0 [facility] Comment on above: Performed By: #### L 400.4900, L500.2600 #### Main Laboratory ([facility]) [address] [place] [address] Matt Casarez MD Hematocrit (Bld) [Volume fraction] 30.9 % Low 40.0-49.0 [facility] Comment on above: Performed By: #### L 400.4900, L500.2600 #### Main Laboratory ([facility]) [address] [place] [address] Matt Casarez MD Hemoglobin (Bld) [Mass/Vol] 10.3 g/dL Low 13.5-16.5 [facility] Comment on above: Performed By: #### L 400.4900, L500.2600 #### Main Laboratory ([facility]) [address] [place] [address] Matt Casarez MD MCH (RBC) [Entitic mass] 32.5 pg Normal 27.5-33.0 [facility] Comment on above: Performed By: #### L 400.4900, L500.2600 #### Main Laboratory ([facility]) [address] [place] [address] Matt Casarez MD MCHC (RBC) [Mass/Vol] 33.3 g/dL Normal 33.0-36.0 [facility] Comment on above: Performed By: #### L 400.4900, L500.2600 #### Main Laboratory ([facility]) [address] [place] [address] Matt Casarez MD MCV (RBC) [Entitic vol] 97.8 [facility] High 80-97 [facility] Comment on above: Performed By: #### L 400.4900, L500.2600 #### Main Laboratory ([facility]) [address] [place] [address] Matt Casarez MD Platelets (Bld) [#/Vol] 267 th/cmm Normal 150-400 [facility] Comment on above: Performed By: #### L 400.4900, L500.2600 #### Main Laboratory ([facility]) [address] [place] [address] Matt Casarez MD RBC (Bld) [#/Vol] 3.16 mil/cmm Low 4.50-6.00 [facility] Comment on above: Performed By: #### L 400.4900, L500.2600 #### Main Laboratory ([facility]) [address] [place] [address] Matt Casarez MD WBC (Bld) [#/Vol] 6.0 th/cmm Normal 4.4-10.5 [facility] Comment on above: Performed By: #### L 400.4900, L500.2600 #### Main Laboratory ([facility]) [address] [place] [address] Matt Casarez MD Comprehensive Metabolic Pane [facility] 03-27-2019 Albumin/Globulin [Mass ratio] 1.1 {ratio} Low 1.5-2.5 [facility] Comment on above: Performed By: #### L 400.4900, L500.2600 #### Main Laboratory ([facility]) [address] [place], [place] [address] Matt Casarez MD Alk Phos 55 IU/L Normal 41-137 [facility] Comment on above: Performed By: #### L 400.4900, L500.2600 #### Main Laboratory ([facility]) [address] [place] [address] Matt Casarez MD ALT/SGPT 71 IU/L High 10-40 [facility] Comment on above: Performed By: #### L 400.4900, L500.2600 #### Main Laboratory ([facility]) [address] [place] [address] Matt Casarez MD AST/SGOT 20 IU/L Normal 15-41 [facility] Comment on above: Performed By: #### L 400.4900, L500.2600 #### Main Laboratory ([facility]) [address] [place] [address] Matt Casarez MD Creatinine [Mass/Vol] 0.66 mg/dL Normal 0.60-1.30 [facility] Comment on above: Performed By: #### L 400.4900, L500.2600 #### Main Laboratory ([facility]) [address] [place] [address] Matt Casarez MD GFR/1.73 sq M predicted among non-blacks MDRD (S/P/Bld) [Vol rate/Area] mL/min/{1.73_m2} Normal [facility] Comment on above: Result Comment: Aircraft Restorer harvey Kidney Disease stages by NKDF Stage eGFR I >90 II 60-89 III 30-59 IV 15-29 V <15 or dialysis AGE(years) AVERAGE GFR 50-59 93 ml/min/1.73 square meters Note:This result is normalized to 1.73 square meter body surface area. Height and weight are not factored. Performed By: #### L 400.4900, L500.2600 #### Main Laboratory ([facility]) [address] [place] [address] Matt Casarez MD Glucose [Mass/Vol] 110 mg/dL Normal 70-110 [facility] Comment on above: Result Comment: *Thi s reference range applies to fasting specimens only. Performed By: #### L 400.4900, L500.2600 #### Main Laboratory ([facility]) [address] [place] [address] Matt Casarez MD Protein [Mass/Vol] 6.7 g/dL Normal 6.2-8.0 [facility] Comment on above: Performed By: #### L 400.4900, L500.2600 #### Main Laboratory ([facility]) [address] [place] [address] Matt Casarez MD Urea nitrogen [Mass/Vol] 17 mg/dL Normal 7-20 [facility] Comment on above: Performed By: #### L 400.4900, L500.2600 #### Main Laboratory ([facility]) [address] [place] [address] Matt Casarez MD Albumin [Mass/Vol] 3.5 g/dL Normal 3.5-5.0 [facility] Comment on above: Performed By: #### L 400.4900, L500.2600 #### Main Laboratory ([facility]) [address] [place] [address] Matt Casarez MD Anion gap [Moles/Vol] 5 mmol/L Normal 4-12 [facility] Comment on above: Performed By: #### L 400.4900, L500.2600 #### Main Laboratory ([facility]) [address] [place], [facility] Matt Casarez MD Bili,Total 0.3 mg/dL Normal 0.2-1.0 [facility] Comment on above: Performed By: #### L 400.4900, L500.2600 #### Main Laboratory ([facility]) [address] [place] [address] Matt Casarez MD Calcium [Mass/Vol] 9.20 mg/dL Normal 8.8-10.5 [facility] Comment on above: Performed By: #### L 400.4900, L500.2600 #### Main Laboratory ([facility]) [address] [place] [address] Matt Casarez MD Chloride [Moles/Vol] 98 mmol/L Low 101-111 [facility] Comment on above: Performed By: #### L 400.4900, L500.2600 #### Main Laboratory ([facility]) [address] [place] [address] Matt Casarez MD CO2 [Moles/Vol] 31 mmol/L Normal 21-32 [facility] Comment on above: Performed By: #### L 400.4900, L500.2600 #### Main Laboratory ([facility]) [address] [place] [address] Matt Casarez MD Potassium [Moles/Vol] 4.5 mmol/L Normal 3.6-5.0 [facility] Comment on above: Performed By: #### L 400.4900, L500.2600 #### Main Laboratory ([facility]) [address] [place] [address] Matt Casarez MD Sodium [Moles/Vol] 134 mmol/L Low 135-145 [facility] Comment on above: Performed By: #### L 400.4900, L500.2600 #### Main Laboratory ([facility]) [address] [place] [place] [address] Matt Casarez MD Comprehensive Metabolic Pane lOrdered By: Bart Juárez on 03-27-2019 Albumin [Mass/Vol] 3.5 g/dL [facility] [employer] Phone: Albumin/Globulin [Mass ratio] 1.1 {ratio} Low [facility] [employer] Work Phone: ALP [Catalytic activity/Vol] 55 U/L [facility] [employer] Phone: ALT [Catalytic activity/Vol] 71 U/L High [facility] [employer] Work Phone: Anion gap [Moles/Vol] 5 mmol/L [facility] [employer] Work Phone: AST [Catalytic activity/Vol] 20 U/L [facility] [employer] Phone: Bilirubin [Mass/Vol] 0.3 mg/dL 0.2 - 1 mg/dL [facility] [employer] Phone: Calcium [Mass/Vol] 9.20 mg/dL 8.8 - 10. 5 mg/dL [facility] [employer] Work Phone: Chloride [Moles/Vol] 98 mmol/L Low [facility] [employer] Work Phone: CO2 [Moles/Vol] 31 mmol/L [facility] Work Phone: Creatinine [Mass/Vol] 0.66 mg/dL 0.6 - 1.3 mg/dL [facility] [employer] Phone: Creatinine Clearance >60 [facility] [employer] Work Phone: Comment on above: Chronic Kidney Disea se stages by NKDF Stage eGFR I >90 II 60-89 III 30-59 IV 15-29 V <15 or dialysis AGE(years) AVERAGE GFR 50-59 93 ml/min/1.73 square meters Note:This result is normalized to 1.73 square meter body surface area. Height and weight are not factored. Glucose [Mass/Vol] 110 mg/dL 70 - 110 mg/dL [facility] [employer] Work Phone: Comment on above: *This reference rang e applies to fasting specimens only. Interpretation and review of laboratory results Abnormal [facility] [employer] Work Phone: Potassium [Moles/Vol] 4.5 mmol/L [facility] [employer] Work Phone: Protein [Mass/Vol] 6.7 g/dL 6.2 - 8 g/dL [facility] [employer] Work Phone: Sodium [Moles/Vol] 134 mmol/L Low [facility] [employer] Work Phone: Urea nitrogen [Mass/Vol] 17 mg/dL 7 - 20 mg/dL [facility] [employer] Phone: Main Laboratory ([facility])[address] [place] [phone] el Nivar, MDOrdering Provider: Bart Juárez [facility] [employer] Phone: Basic Metabolic PanelOrdered By: Bart Juárez on 03-25-2019 Anion gap [Moles/Vol] 7 mmol/L [facility] [employer] Work Phone: Calcium [Mass/Vol] 9.20 mg/dL 8.8 - 10. 5 mg/dL [facility] Work Phone: Chloride [Moles/Vol] 96 mmol/L Low [facility] Work Phone: CO2 [Moles/Vol] 32 mmol/L [facility] Work Phone: Creatinine [Mass/Vol] 0.72 mg/dL 0.6 - 1.3 mg/dL [facility] Work Phone: Creatinine Clearance >60 [facility] Work Phone: Comment on above: Chronic Kidney Disea se stages by NKDF Stage eGFR I >90 II 60-89 III 30-59 IV 15-29 V <15 or dialysis AGE(years) AVERAGE GFR 50-59 93 ml/min/1.73 square meters Note:This result is normalized to 1.73 square meter body surface area. Height and weight are not factored. Glucose [Mass/Vol] 108 mg/dL 70 - 110 mg/dL [facility] Phone: Comment on above: *This reference rang e applies to fasting specimens only. Potassium [Moles/Vol] 4.5 mmol/L [facility] [employer] Work Phone: Sodium [Moles/Vol] 135 mmol/L [facility] Phone: Urea nitrogen [Mass/Vol] 22 mg/dL High 7 - 20 mg/dL [facility] Phone: Basic Metabolic,Non-Fastingo n 03-25-2019 Anion gap [Moles/Vol] 7 mmol/L Normal 4-12 [facility] Comment on above: Performed By: #### L 400.4900, L500.2600 #### Main Laboratory ([facility]) [address] [place] [address] Matt Casarez MD Calcium [Mass/Vol] 9.20 mg/dL Normal 8.8-10.5 [facility] Comment on above: Performed By: #### L 400.4900, L500.2600 #### Main Laboratory ([facility]) [address] [place] [address] Matt Casarez MD Chloride [Moles/Vol] 96 mmol/L Low 101-111 [facility] Comment on above: Performed By: #### L 400.4900, L500.2600 #### Main Laboratory ([facility]) [address] [place] [address] Matt Casarez MD CO2 [Moles/Vol] 32 mmol/L Normal 21-32 [facility] Comment on above: Performed By: #### L 400.4900, L500.2600 #### Main Laboratory ([facility]) [address] [place] [address] Matt Casarez MD Creatinine [Mass/Vol] 0.72 mg/dL Normal 0.60-1.30 [facility] Comment on above: Performed By: #### L 400.4900, L500.2600 #### Main Laboratory ([facility]) [address] [place] [address] Matt Casarez MD GFR/1.73 sq M predicted among non-blacks MDRD (S/P/Bld) [Vol rate/Area] mL/min/{1.73_m2} Normal [facility] Comment on above: Result Comment: [facility] harvey Kidney Disease stages by NKDF Stage eGFR I >90 II 60-89 III 30-59 IV 15-29 V <15 or dialysis AGE(years) AVERAGE GFR 50-59 93 ml/min/1.73 square meters Note:This result is normalized to 1.73 square meter body surface area. Height and weight are not factored. Performed By: #### L 400.4900, L500.2600 #### Main Laboratory ([facility]) [address] [place] [address] Matt Casarez MD Glucose [Mass/Vol] 108 mg/dL Normal 70-110 [facility] Comment on above: Result Comment: *Thi s reference range applies to fasting specimens only. Performed By: #### L 400.4900, L500.2600 #### Main Laboratory ([facility]) [address] [place] [address] Matt Casarez MD Potassium [Moles/Vol] 4.5 mmol/L Normal 3.6-5.0 [facility] Comment on above: Performed By: #### L 400.4900, L500.2600 #### Main Laboratory ([facility]) [address] [place] [address] Matt Casarez MD Sodium [Moles/Vol] 135 mmol/L Normal 135-145 [facility] Comment on above: Performed By: #### L 400.4900, L500.2600 #### Main Laboratory ([facility]) [address] [place] [address] Matt Casarez MD Urea nitrogen [Mass/Vol] 22 mg/dL High 7-20 [facility] Comment on above: Performed By: #### L 400.4900, L500.2600 #### Main Laboratory ([facility]) [address] [place] [address] Matt Casarez MD Cortisol AM, TotalOrdered By : Bart Juárez on 03-25-2019 Cortisol - AM [address] [facility] Work Phone: Interpretation and review of laboratory results Abnormal [facility] Work Phone: Main Laboratory ([facility])[address] [phone] el Nivar, MDOrdering Provider: Bart Juárez [employer] Phone: Cortisol,Lusi 03-25-2019 Cortisol,AM 4.0 mcg/dL Low 6.7-22.6 [facility] Comment on above: Performed By: #### L 400.4900, L500.2600 #### Main Laboratory ([facility]) [address] [place] [address] Matt Casarez MD Free T4on 03-25-2019 Free T4 [Mass/Vol] 1.14 ng/dL High 0.61-1.12 [facility] Comment on above: Result Comment: Spec imens from patients who are undergoing biotin therapy and/or ingesting biotin supplements may produce significantly false high results for this assay. Results should be interpreted in light of the total clinical presentation of the patient, including symptoms, clinical history, and data from additional tests. Performed By: #### L 400.4900, L500.2600 #### Main Laboratory ([facility]) [address] [place] [address] Matt Casarez MD No Panel InformationOrdered By: Bart Juárez on 03-25-2019 Interpretation and review of laboratory results Abnormal [employer] Phone: Main Laboratory ([facility])[address], [place] [phone] el Nivar, MDOrdering Provider: Bart Juárez [employer] Phone: T4, FreeOrdered By: Bart Juárez on 03-25-2019 Free T4 [Mass/Vol] 1.14 ng/dL High 0.61 - 1. 12 ng/dL [employer] Phone: Comment on above: Specimens from patie nts who are undergoing biotin therapy and/or ingesting biotin supplements may produce significantly false high results for this assay. Results should be interpreted in light of the total clinical presentation of the patient, including symptoms, clinical history, and data from additional tests. Basic Metabolic PanelOrdered By: Bart Juárez on 03-24-2019 Anion gap [Moles/Vol] 5 mmol/L [facility] [employer] Work Phone: Calcium [Mass/Vol] 9.5 mg/dL 8.8 - 10. 5 mg/dL [facility] [employer] Work Phone: Chloride [Moles/Vol] 98 mmol/L Low [facility] [employer] Work Phone: CO2 [Moles/Vol] 34 mmol/L [facility] Work Phone: Creatinine [Mass/Vol] 0.71 mg/dL 0.6 - 1.3 mg/dL [facility] Work Phone: Creatinine Clearance >60 [facility] Work Phone: Comment on above: Chronic Kidney Disea se stages by NKDF Stage eGFR I >90 II 60-89 III 30-59 IV 15-29 V <15 or dialysis AGE(years) AVERAGE GFR 50-59 93 ml/min/1.73 square meters Note:This result is normalized to 1.73 square meter body surface area. Height and weight are not factored. Glucose [Mass/Vol] 115 mg/dL High 70 - 110 mg/dL [facility] Work Phone: Interpretation and review of laboratory results Abnormal [facility] [employer] Work Phone: Potassium [Moles/Vol] 4.8 mmol/L [facility] [employer] Work Phone: Sodium [Moles/Vol] 137 mmol/L [facility] [employer] Work Phone: Urea nitrogen [Mass/Vol] 20 mg/dL 7 - 20 mg/dL [facility] [employer] Work Phone: Main Laboratory ([facility])[address], [place] [phone] el Nivar, MDOrdering Provider: Bart Juárez [facility] Work Phone: Basic Metabolic,Non-Fastingo n 03-24-2019 Calcium [Mass/Vol] 9.5 mg/dL Normal 8.8-10.5 [facility] Comment on above: Performed By: #### L 400.4900, L500.2600 #### Main Laboratory ([facility]) [address] [place] [address] Matt Casarez MD Chloride [Moles/Vol] 98 mmol/L Low 101-111 [facility] Comment on above: Performed By: #### L 400.4900, L500.2600 #### Main Laboratory ([facility]) [address] [place] [address] Matt Casarez MD CO2 [Moles/Vol] 34 mmol/L High 21-32 [facility] Comment on above: Performed By: #### L 400.4900, L500.2600 #### Main Laboratory ([facility]) [address] [place] [address] Matt Casarez MD Creatinine [Mass/Vol] 0.71 mg/dL Normal 0.60-1.30 [facility] Comment on above: Performed By: #### L 400.4900, L500.2600 #### Main Laboratory ([facility]) [address] [place] [address] Matt Casarez MD GFR/1.73 sq M predicted among non-blacks MDRD (S/P/Bld) [Vol rate/Area] mL/min/{1.73_m2} Normal [facility] Comment on above: Result Comment: [employer] harvey Kidney Disease stages by NKDF Stage eGFR I >90 II 60-89 III 30-59 IV 15-29 V <15 or dialysis AGE(years) AVERAGE GFR 50-59 93 ml/min/1.73 square meters Note:This result is normalized to 1.73 square meter body surface area. Height and weight are not factored. Performed By: #### L 400.4900, L500.2600 #### Main Laboratory ([facility]) [address] [place], [place] [address] Matt Casarez MD Glucose [Mass/Vol] 115 mg/dL High 70-110 [facility] Comment on above: Performed By: #### L 400.4900, L500.2600 #### Main Laboratory ([facility]) [address] [place] [address] Matt Casarez MD Potassium [Moles/Vol] 4.8 mmol/L Normal 3.6-5.0 [facility] Comment on above: Performed By: #### L 400.4900, L500.2600 #### Main Laboratory ([facility]) [address] [place] [address] Matt Casarez MD Sodium [Moles/Vol] 137 mmol/L Normal 135-145 [facility] Comment on above: Performed By: #### L 400.4900, L500.2600 #### Main Laboratory ([facility]) [address] [place] [address] Matt Casarez MD Urea nitrogen [Mass/Vol] 20 mg/dL Normal 7-20 [facility] Comment on above: Performed By: #### L 400.4900, L500.2600 #### Main Laboratory ([facility]) [address] [place] [id number] Matt Casarez MD Anion gap [Moles/Vol] 5 mmol/L Normal 4-12 [facility] Comment on above: Performed By: #### L 400.4900, L500.2600 #### Main Laboratory ([facility]) [address] [place] [id number] Matt Casarez MD CBC WITHOUT DIFFERENTIALOrde red By: Bart Juárez on 03-23-2019 Erythrocyte distribution width (RBC) [Ratio] 17.4 % High 12 - 16 % [facility] Phone: Hematocrit (Bld) [Volume fraction] 31.3 % Low 40 - 49 % [employer] Phone: Hemoglobin (Bld) [Mass/Vol] 10.3 g/dL Low [facility] [employer] Phone: Interpretation and review of laboratory results Abnormal [facility] Phone: MCH (RBC) [Entitic mass] 32.0 pg 27.5 - 33 PG [facility] [employer] Work Phone: MCHC (RBC) [Mass/Vol] 32.9 g/dL Low [facility] [employer] Work Phone: MCV (RBC) [Entitic vol] 97.4 fL High [facility] Phone: Platelets (Bld) [#/Vol] 267 10*3/uL [facility] Phone: RBC (Bld) [#/Vol] 3.21 10*6/uL Low [facility] Phone: WBC (Bld) [#/Vol] 7.1 10*3/uL [employer] Phone: Main Laboratory ([facility])[address], [place] [phone] el Nivar, MDOrdering Provider: Bart Juárez [employer] Phone: CBC Without Differentialon 0 03-23-2019 Erythrocyte distribution width (RBC) [Ratio] 17.4 % High 12.0-16.0 [facility] Comment on above: Performed By: #### L 400.0076, L400.4800 #### Main Laboratory ([facility]) [address] [place] [address] Matt Casarez MD Hematocrit (Bld) [Volume fraction] 31.3 % Low 40.0-49.0 [facility] Comment on above: Performed By: #### L 400.0076, L400.4800 #### Main Laboratory ([facility]) [address] [place] [address] Matt Casarez MD Hemoglobin (Bld) [Mass/Vol] 10.3 g/dL Low 13.5-16.5 [facility] Comment on above: Performed By: #### L 400.0076, L400.4800 #### Main Laboratory ([facility]) [address] [place], [place] [address] Matt Casarez MD MCH (RBC) [Entitic mass] 32.0 pg Normal 27.5-33.0 [facility] Comment on above: Performed By: #### L 400.0076, L400.4800 #### Main Laboratory ([facility]) [address] [place] [address] Matt Casarez MD MCHC (RBC) [Mass/Vol] 32.9 g/dL Low 33.0-36.0 [facility] Comment on above: Performed By: #### L 400.0076, L400.4800 #### Main Laboratory ([facility]) [address] [place], [facility]04 Matt Casarez MD MCV (RBC) [Entitic vol] 97.4 [facility] High 80-97 [facility] Comment on above: Performed By: #### L 400.0076, L400.4800 #### Main Laboratory ([facility]) [address] [place], [facility]04 Matt Casarez MD Platelets (Bld) [#/Vol] 267 th/cmm Normal 150-400 [facility] Comment on above: Performed By: #### L 400.0076, L400.4800 #### Main Laboratory ([facility]) [address] [place] [id number] Matt Casarez MD RBC (Bld) [#/Vol] 3.21 mil/cmm Low 4.50-6.00 [facility] Comment on above: Performed By: #### L 400.0076, L400.4800 #### Main Laboratory ([facility]) [address] [place] [address] Matt Casarez MD WBC (Bld) [#/Vol] 7.1 th/cmm Normal 4.4-10.5 [facility] Comment on above: Performed By: #### L 400.0076, L400.4800 #### Main Laboratory ([facility]) [address] [place] [address] Matt Casarez MD Comprehensive Metabolic Pane raymond 03-23-2019 Albumin [Mass/Vol] 3.7 g/dL Normal 3.5-5.0 [facility] Comment on above: Performed By: #### L 400.0076, L400.4800 #### Main Laboratory ([facility]) [address] [place] [address] Matt Casarez MD Albumin/Globulin [Mass ratio] 1.2 {ratio} Low 1.5-2.5 [facility] Comment on above: Performed By: #### L 400.0076, L400.4800 #### Main Laboratory ([facility]) [address] [place] [address] Matt Casarez MD Alk Phos 52 IU/L Normal 41-137 [facility] Comment on above: Performed By: #### L 400.0076, L400.4800 #### Main Laboratory ([facility]) [address] [place] [address] Matt Casarez MD ALT/SGPT 149 IU/L High 10-40 [facility] Comment on above: Result Comment: Delt a: 42 on 03/20/19-0605 Performed By: #### L 400.0076, L400.4800 #### Main Laboratory ([facility]) [address] [place] [address] Matt Casarez MD Anion gap [Moles/Vol] 5 mmol/L Normal 4-12 [facility] Comment on above: Performed By: #### L 400.0076, L400.4800 #### Main Laboratory ([facility]) [address] [place] [address] Matt Casarez MD AST/SGOT 75 IU/L High 15-41 [facility] Comment on above: Result Comment: Delt a: 24 on 03/20/19-0605 Performed By: #### L 400.0076, L400.4800 #### Main Laboratory ([facility]) [address] [place], [place] [address] Matt Casarez MD Bili,Total 0.3 mg/dL Normal 0.2-1.0 [facility] Comment on above: Performed By: #### L 400.0076, L400.4800 #### Main Laboratory ([facility]) [address] [place], [facility]04 Matt Casarez MD Calcium [Mass/Vol] 9.30 mg/dL Normal 8.8-10.5 [facility] Comment on above: Performed By: #### L 400.0076, L400.4800 #### Main Laboratory ([facility]) [address] [place] [address] Matt Casarez MD Chloride [Moles/Vol] 100 mmol/L Low 101-111 [facility] Comment on above: Performed By: #### L 400.0076, L400.4800 #### Main Laboratory ([facility]) [address] [place] [address] Matt Casarez MD CO2 [Moles/Vol] 32 mmol/L Normal 21-32 [facility] Comment on above: Performed By: #### L 400.0076, L400.4800 #### Main Laboratory ([facility]) [address] [place], [facility]04 Matt Casarez MD Creatinine [Mass/Vol] 0.63 mg/dL Normal 0.60-1.30 [facility] Comment on above: Performed By: #### L 400.0076, L400.4800 #### Main Laboratory ([facility]) [address] [place] [address] Matt Casarez MD GFR/1.73 sq M predicted among non-blacks MDRD (S/P/Bld) [Vol rate/Area] mL/min/{1.73_m2} Normal [facility] Comment on above: Result Comment: [facility] harvey Kidney Disease stages by NKDF Stage eGFR I >90 II 60-89 III 30-59 IV 15-29 V <15 or dialysis AGE(years) AVERAGE GFR 50-59 93 ml/min/1.73 square meters Note:This result is normalized to 1.73 square meter body surface area. Height and weight are not factored. Performed By: #### L 400.0076, L400.4800 #### Main Laboratory ([facility]) [address] [place] [address] Matt Casarez MD Glucose [Mass/Vol] 97 mg/dL Normal 70-110 [facility] Comment on above: Result Comment: *Thi s reference range applies to fasting specimens only. Performed By: #### L 400.0076, L400.4800 #### Main Laboratory ([facility]) [address] [place] [place] [address] Matt Casarez MD Potassium [Moles/Vol] 4.6 mmol/L Normal 3.6-5.0 [facility] Comment on above: Performed By: #### L 400.0076, L400.4800 #### Main Laboratory ([facility]) [address] [place] [address] Matt Casarez MD Protein [Mass/Vol] 6.8 g/dL Normal 6.2-8.0 [facility] Comment on above: Performed By: #### L 400.0076, L400.4800 #### Main Laboratory ([facility]) [address] [place] [address] Matt Casarez MD Sodium [Moles/Vol] 137 mmol/L Normal 135-145 [facility] Comment on above: Performed By: #### L 400.0076, L400.4800 #### Main Laboratory ([facility]) [address] [place] [address] Matt Casarez MD Urea nitrogen [Mass/Vol] 26 mg/dL High 7-20 [facility] Comment on above: Performed By: #### L 400.0076, L400.4800 #### Main Laboratory ([facility]) [address] [place] [address] Matt Casraez MD Comprehensive Metabolic Pane lOrdered By: Bart Juárez on 03-23-2019 Albumin [Mass/Vol] 3.7 g/dL [facility] [employer] Phone: Albumin/Globulin [Mass ratio] 1.2 {ratio} Low [facility] [employer] Phone: ALP [Catalytic activity/Vol] 52 U/L [facility] [employer] Phone: ALT [Catalytic activity/Vol] 149 U/L Abnormal [facility] [employer] Phone: Comment on above: Delta: 42 on 0-0605 Anion gap [Moles/Vol] 5 mmol/L [facility] [employer] Phone: AST [Catalytic activity/Vol] 75 U/L Abnormal [facility] [employer] Phone: Comment on above: Delta: 24 on 0-0605 Bilirubin [Mass/Vol] 0.3 mg/dL 0.2 - 1 mg/dL [facility] [employer] Phone: Calcium [Mass/Vol] 9.30 mg/dL 8.8 - 10. 5 mg/dL [facility] [employer] Phone: Chloride [Moles/Vol] 100 mmol/L Low [facility] [employer] Work Phone: CO2 [Moles/Vol] 32 mmol/L [facility] Work Phone: Creatinine [Mass/Vol] 0.63 mg/dL 0.6 - 1.3 mg/dL [facility] [employer] Work Phone: Creatinine Clearance >60 [facility] [employer] Work Phone: Comment on above: Chronic Kidney Disea se stages by NKDF Stage eGFR I >90 II 60-89 III 30-59 IV 15-29 V <15 or dialysis AGE(years) AVERAGE GFR 50-59 93 ml/min/1.73 square meters Note:This result is normalized to 1.73 square meter body surface area. Height and weight are not factored. Glucose [Mass/Vol] 97 mg/dL 70 - 110 mg/dL [facility] [employer] Phone: Comment on above: *This reference rang e applies to fasting specimens only. Interpretation and review of laboratory results Abnormal [facility] [employer] Phone: Potassium [Moles/Vol] 4.6 mmol/L [facility] [employer] Work Phone: Protein [Mass/Vol] 6.8 g/dL 6.2 - 8 g/dL [facility] [employer] Work Phone: Sodium [Moles/Vol] 137 mmol/L [facility] [employer] Phone: Urea nitrogen [Mass/Vol] 26 mg/dL High 7 - 20 mg/dL [facility] [employer] Phone: Magnesiumon 03-23-2019 Magnesium [Mass/Vol] 2.0 mg/dL Normal 1.8-2.5 [facility] Comment on above: Performed By: #### L 400.0076, L400.4800 #### Main Laboratory ([facility]) [address] [place] [address] Matt Casarez MD MagnesiumOrdered By: Elias Juárez on 03-23-2019 Magnesium [Mass/Vol] 2.0 mg/dL 1.8 - 2 .5 mg/dL [employer] Phone: No Panel InformationOrdered By: Bart Juárez on 03-23-2019 Main Laboratory ([facility])[address] [phone] el Nivar, MDOrdering Provider: Bart Juárez [employer] Phone: Basic Metabolic PanelOrdered By: Bart Juárez on 03-22-2019 Creatinine [Mass/Vol] 0.6 mg/dL 0.6 - 1.3 mg/dL [employer] Phone: Creatinine Clearance >60 [employer] Phone: Comment on above: Chronic Kidney Disea se stages by NKDF Stage eGFR I >90 II 60-89 III 30-59 IV 15-29 V <15 or dialysis AGE(years) AVERAGE GFR 50-59 93 ml/min/1.73 square meters Note:This result is normalized to 1.73 square meter body surface area. Height and weight are not factored. Interpretation and review of laboratory results Abnormal [employer] Phone: Main Laboratory ([facility])[address] [phone] el Nivar, MDOrdering Provider: Bart Juárez [employer] Phone: Basic Metabolic,Non-FastingO rdered By: Bart Juárez on 03-22-2019 Anion gap [Moles/Vol] 6 mmol/L Normal 4-12 [facility] [employer] Phone: Comment on above: Performed By: #### L 400.0076, L400.4800 #### Main Laboratory ([facility]) [address] [place] [address] Matt Casarez MD Calcium [Mass/Vol] 9.10 mg/dL Normal 8.8-10.5 [facility] Work Phone: Comment on above: Performed By: #### L 400.0076, L400.4800 #### Main Laboratory ([facility]) [address] [place] [address] Matt Casarez MD Chloride [Moles/Vol] 102 mmol/L Normal 101-111 [facility] Work Phone: Comment on above: Performed By: #### L 400.0076, L400.4800 #### Main Laboratory ([facility]) [address] [place] [address] Matt Casarez MD CO2 [Moles/Vol] 27 mmol/L Normal 21-32 [facility] Work Phone: Comment on above: Performed By: #### L 400.0076, L400.4800 #### Main Laboratory ([facility]) [address] [place] [address] Matt Casarez MD Glucose [Mass/Vol] 108 mg/dL Normal 70-110 [facility] Work Phone: Comment on above: Result Comment: *Thi s reference range applies to fasting specimens only. Performed By: #### L 400.0076, L400.4800 #### Main Laboratory ([facility]) [address] [place] [address] Matt Casarez MD *This reference rang e applies to fasting specimens only. Potassium [Moles/Vol] 5.2 mmol/L High 3.6-5.0 [facility] Work Phone: Comment on above: Performed By: #### L 400.0076, L400.4800 #### Main Laboratory ([facility]) [address] [place] [address] Matt Casarez MD Sodium [Moles/Vol] 135 mmol/L Normal 135-145 [employer] Phone: Comment on above: Performed By: #### L 400.0076, L400.4800 #### Main Laboratory ([facility]) [address] [place] [id number] Matt Casarez MD Urea nitrogen [Mass/Vol] 28 mg/dL High 7-20 [employer] Phone: Comment on above: Performed By: #### L 400.0076, L400.4800 #### Main Laboratory ([facility]) [address] [place] [address] Matt Casarez MD Basic Metabolic,Non-Fastingo n 03-22-2019 Creatinine [Mass/Vol] 0.60 mg/dL Normal 0.60-1.30 [facility] Comment on above: Performed By: #### L 400.0076, L400.4800 #### Main Laboratory ([facility]) [address] [place] [address] Matt Casarez MD GFR/1.73 sq M predicted among non-blacks MDRD (S/P/Bld) [Vol rate/Area] mL/min/{1.73_m2} Normal [facility] Comment on above: Result Comment: [facility] harvey Kidney Disease stages by NKDF Stage eGFR I >90 II 60-89 III 30-59 IV 15-29 V <15 or dialysis AGE(years) AVERAGE GFR 50-59 93 ml/min/1.73 square meters Note:This result is normalized to 1.73 square meter body surface area. Height and weight are not factored. Performed By: #### L 400.0076, L400.4800 #### Main Laboratory ([facility]) [address] [place] [address] Matt Casarez MD Basic Metabolic,Non-Fastingo n 03-21-2019 Anion gap [Moles/Vol] 4 mmol/L Normal 4-12 [facility] Comment on above: Performed By: #### L 400.0076, L400.4800 #### Main Laboratory ([facility]) [address] [place] [facility]04 Matt Casarez MD Calcium [Mass/Vol] 9.30 mg/dL Normal 8.8-10.5 [facility] Comment on above: Performed By: #### L 400.0076, L400.4800 #### Main Laboratory ([facility]) [address] [place] [address] Matt Casarez MD Chloride [Moles/Vol] 100 mmol/L Low 101-111 [facility] Comment on above: Performed By: #### L 400.0076, L400.4800 #### Main Laboratory ([facility]) [address] [place] [address] Matt Casarez MD CO2 [Moles/Vol] 32 mmol/L Normal 21-32 [facility] Comment on above: Performed By: #### L 400.0076, L400.4800 #### Main Laboratory ([facility]) [address] [place] [address] Matt Casarez MD Creatinine [Mass/Vol] 0.66 mg/dL Normal 0.60-1.30 [facility] Comment on above: Performed By: #### L 400.0076, L400.4800 #### Main Laboratory ([facility]) [address] [place] [address] Matt Casarez MD GFR/1.73 sq M predicted among non-blacks MDRD (S/P/Bld) [Vol rate/Area] mL/min/{1.73_m2} Normal [facility] Comment on above: Result Comment: [facility]vey Kidney Disease stages by NKDF Stage eGFR I >90 II 60-89 III 30-59 IV 15-29 V <15 or dialysis AGE(years) AVERAGE GFR 50-59 93 ml/min/1.73 square meters Note:This result is normalized to 1.73 square meter body surface area. Height and weight are not factored. Performed By: #### L 400.0076, L400.4800 #### Main Laboratory ([facility]) [address] [place] [address] Matt Casarez MD Glucose [Mass/Vol] 150 mg/dL High 70-110 [facility] Comment on above: Performed By: #### L 400.0076, L400.4800 #### Main Laboratory ([facility]) [address] [place] [address] Matt Casarez MD Potassium [Moles/Vol] 4.3 mmol/L Normal 3.6-5.0 [facility] Comment on above: Performed By: #### L 400.0076, L400.4800 #### Main Laboratory ([facility]) [address] [place] [address] Matt Casarez MD Sodium [Moles/Vol] 136 mmol/L Normal 135-145 [facility] Comment on above: Performed By: #### L 400.0076, L400.4800 #### Main Laboratory ([facility]) [address] [place] [address] Matt Casarez MD Urea nitrogen [Mass/Vol] 28 mg/dL High 7-20 [facility] Comment on above: Performed By: #### L 400.0076, L400.4800 #### Main Laboratory ([facility]) [address] [place] [address] Matt Casarez MD Arterial Blood Gason 01-20-2 020 ABG Device Room Air [facility] Comment on above: Performed By: #### L 400.0076, L400.4800 #### Main Laboratory ([facility]) [address] [place], [place] [address] Matt Casarez MD ABG Draw Site R Brachial [facility] Comment on above: Performed By: #### L 400.0076, L400.4800 #### Main Laboratory ([facility]) [address] [place], [place] [address] Matt Casarez MD ABG Drawn By Kira Jennings [facility] Comment on above: Performed By: #### L 400.0076, L400.4800 #### Main Laboratory ([facility]) [address] [place], [place] [address] Matt Casarez MD Cas's Test N/A [facility] Comment on above: Performed By: #### L 400.0076, L400.4800 #### Main Laboratory ([facility]) [address] [place], [place] [address] Matt Casarez MD Base Excess 6 mmol/L High -2-3 [facility] Comment on above: Performed By: #### L 400.0076, L400.4800 #### Main Laboratory ([facility]) [address] [place], [place] [address] Matt Casarez MD FIO2 21.00 [facility] Comment on above: Performed By: #### L 400.0076, L400.4800 #### Main Laboratory ([facility]) [address] [place], [place] [address] Matt Casarez MD HCO3 (Bld) [Moles/Vol] 30.2 mmol/L High 22-26 [facility] Comment on above: Performed By: #### L 400.0076, L400.4800 #### Main Laboratory ([facility]) [address] [place] [address] Mtat Casarez MD Oxygen (Bld) [Partial pressure] 68 mm[Hg] Low 80-105 [facility] Comment on above: Performed By: #### L 400.0076, L400.4800 #### Main Laboratory ([facility]) [address] [place] [address] Matt Casarez MD Oxygen saturation in Blood 94 % Low 95-98 [facility] Comment on above: Performed By: #### L 400.0076, L400.4800 #### Main Laboratory ([facility]) [address] [place], [facility]04 Matt Casarez MD PCO2 45 mmHg Normal 35-45 [facility] Comment on above: Performed By: #### L 400.0076, L400.4800 #### Main Laboratory ([facility]) [address] [place] [address] Matt Casarez MD pH (Bld) 7.44 [pH] Normal 7.35-7.45 [facility] Comment on above: Performed By: #### L 400.0076, L400.4800 #### Main Laboratory ([facility]) [address] [place] [address] Matt Casarez MD Blood Gas, ArterialOrdered B y: Bart Marquita on 03-20-2019 Cas Test N/A [facility] [employer] Work Phone: Base Excess, Arterial 6 mmol/L High -2 - 3 mmol/L [facility] [employer] Work Phone: DEVICE Room Air [facility] [employer] Work Phone: Drawn By Kira Jennings [facility] Work Phone: FIO2 [phone] [facility] [employer] Work Phone: HCO3 (Bld) [Moles/Vol] 30.2 mmol/L High 22 - 26 mmol/L [facility] [employer] Work Phone: Interpretation and review of laboratory results Abnormal [employer] Work Phone: Oxygen (Bld) [Partial pressure] 68 mm[Hg] Low [employer] Work Phone: Oxygen saturation in Blood 94 % Low 95 - 98 % [employer] Work Phone: PCO2 45 [employer] Work Phone: pH (Bld) 7.44 [pH] [employer] Work Phone: Site R Brachial [employer] Work Phone: Main Laboratory ([facility])[address], [place] [phone] el Nivar, MDOrdering Provider: Bart Juárez [employer] Phone: CBC WITHOUT DIFFERENTIALOrde red By: Bart Juárez on 03-20-2019 Erythrocyte distribution width (RBC) [Ratio] 17.2 % High 12 - 16 % [employer] Phone: Hematocrit (Bld) [Volume fraction] 33.8 % Low 40 - 49 % [employer] Phone: Hemoglobin (Bld) [Mass/Vol] 11.8 g/dL Low [employer] Phone: Interpretation and review of laboratory results Abnormal [employer] Phone: MCH (RBC) [Entitic mass] 34.0 pg High 27.5 - 33 PG [employer] Work Phone: MCHC (RBC) [Mass/Vol] 34.9 g/dL [employer] Work Phone: MCV (RBC) [Entitic vol] 97.4 fL High [employer] Work Phone: Platelets (Bld) [#/Vol] 255 10*3/uL [employer] Work Phone: RBC (Bld) [#/Vol] 3.47 10*6/uL Low [facility] Work Phone: WBC (Bld) [#/Vol] 6.5 10*3/uL [facility] Work Phone: Main Laboratory ([facility])[address] [place], [place] [phone] el Nivar, MDOrdering Provider: Bart Juárez [facility] [employer] Work Phone: CBC Without Differentialon 0 03-20-2019 Erythrocyte distribution width (RBC) [Ratio] 17.2 % High 12.0-16.0 [facility] Comment on above: Performed By: #### L 400.0076, L400.4800 #### Main Laboratory ([facility]) [address] [place] [address] Matt Casarez MD Hematocrit (Bld) [Volume fraction] 33.8 % Low 40.0-49.0 [facility] Comment on above: Performed By: #### L 400.0076, L400.4800 #### Main Laboratory ([facility]) [address] [place] [address] Matt Casarez MD Hemoglobin (Bld) [Mass/Vol] 11.8 g/dL Low 13.5-16.5 [facility] Comment on above: Performed By: #### L 400.0076, L400.4800 #### Main Laboratory ([facility]) [address] [place] [address] Matt Casarez MD MCH (RBC) [Entitic mass] 34.0 pg High 27.5-33.0 [facility] Comment on above: Performed By: #### L 400.0076, L400.4800 #### Main Laboratory ([facility]) [address] [place] [address] Matt Casarez MD MCHC (RBC) [Mass/Vol] 34.9 g/dL Normal 33.0-36.0 [facility] Comment on above: Performed By: #### L 400.0076, L400.4800 #### Main Laboratory ([facility]) [address] [place], [facility]04 Matt Casarez MD MCV (RBC) [Entitic vol] 97.4 [facility] High 80-97 [facility] Comment on above: Performed By: #### L 400.0076, L400.4800 #### Main Laboratory ([facility]) [address] [place], [facility]04 Matt Casarez MD Platelets (Bld) [#/Vol] 255 th/cmm Normal 150-400 [facility] Comment on above: Performed By: #### L 400.0076, L400.4800 #### Main Laboratory ([facility]) [address] [place] [address] Matt Casarez MD RBC (Bld) [#/Vol] 3.47 mil/cmm Low 4.50-6.00 [facility] Comment on above: Performed By: #### L 400.0076, L400.4800 #### Main Laboratory ([facility]) [address] [place] [address] Matt Casarez MD WBC (Bld) [#/Vol] 6.5 th/cmm Normal 4.4-10.5 [facility] Comment on above: Performed By: #### L 400.0076, L400.4800 #### Main Laboratory ([facility]) [address] [place] [address] Matt Casarez MD Comprehensive Metabolic Pane raymond 03-20-2019 Albumin [Mass/Vol] 3.9 g/dL Normal 3.5-5.0 [facility] Comment on above: Performed By: #### L 400.0076, L400.4800 #### Main Laboratory ([facility]) [address] [place] [address] Matt Casarez MD Albumin/Globulin [Mass ratio] 1.2 {ratio} Low 1.5-2.5 [facility] Comment on above: Performed By: #### L 400.0076, L400.4800 #### Main Laboratory ([facility]) [address] [place] [address] Matt Casarez MD Alk Phos 57 IU/L Normal 41-137 [facility] Comment on above: Performed By: #### L 400.0076, L400.4800 #### Main Laboratory ([facility]) [address] [place] [address] Matt Casarez MD ALT/SGPT 42 IU/L High 10-40 [facility] Comment on above: Performed By: #### L 400.0076, L400.4800 #### Main Laboratory ([facility]) [address] [place], [facility]04 Matt Casarez MD Anion gap [Moles/Vol] 7 mmol/L Normal 4-12 [facility] Comment on above: Performed By: #### L 400.0076, L400.4800 #### Main Laboratory ([facility]) [address] [place] [address] Matt Casarez MD AST/SGOT 24 IU/L Normal 15-41 [facility] Comment on above: Performed By: #### L 400.0076, L400.4800 #### Main Laboratory ([facility]) [address] [place] [address] Matt Casarez MD Bili,Total 0.5 mg/dL Normal 0.2-1.0 [facility] Comment on above: Performed By: #### L 400.0076, L400.4800 #### Main Laboratory ([facility]) [address] [place] [address] Matt Casarez MD Calcium [Mass/Vol] 9.30 mg/dL Normal 8.8-10.5 [place] [facility] Comment on above: Performed By: #### L 400.0076, L400.4800 #### Main Laboratory ([facility]) [address] [place] [address] Matt Casarez MD Chloride [Moles/Vol] 97 mmol/L Low 101-111 [facility] Comment on above: Performed By: #### L 400.0076, L400.4800 #### Main Laboratory ([facility]) [address] [place] [address] Matt Casarez MD CO2 [Moles/Vol] 31 mmol/L Normal 21-32 [facility] Comment on above: Performed By: #### L 400.0076, L400.4800 #### Main Laboratory ([facility]) [address] [place] [address] Matt Casarez MD Creatinine [Mass/Vol] 0.77 mg/dL Normal 0.60-1.30 [facility] Comment on above: Performed By: #### L 400.0076, L400.4800 #### Main Laboratory ([facility]) [address] [place] [address] Matt Casarez MD GFR/1.73 sq M predicted among non-blacks MDRD (S/P/Bld) [Vol rate/Area] mL/min/{1.73_m2} Normal [facility] Comment on above: Result Comment: [employer] Kidney Disease stages by NKDF Stage eGFR I >90 II 60-89 III 30-59 IV 15-29 V <15 or dialysis AGE(years) AVERAGE GFR 50-59 93 ml/min/1.73 square meters Note:This result is normalized to 1.73 square meter body surface area. Height and weight are not factored. Performed By: #### L 400.0076, L400.4800 #### Main Laboratory ([facility]) [address] [place] [id number] Matt Casarez MD Glucose [Mass/Vol] 102 mg/dL Normal 70-110 [facility] Comment on above: Result Comment: *Thi s reference range applies to fasting specimens only. Performed By: #### L 400.0076, L400.4800 #### Main Laboratory ([facility]) [address] [place] [address] Matt Casarez MD Potassium [Moles/Vol] 4.3 mmol/L Normal 3.6-5.0 [facility] Comment on above: Performed By: #### L 400.0076, L400.4800 #### Main Laboratory ([facility]) [address] [place] [address] Matt Casarez MD Protein [Mass/Vol] 7.1 g/dL Normal 6.2-8.0 [facility] Comment on above: Performed By: #### L 400.0076, L400.4800 #### Main Laboratory ([facility]) [address] [place] [address] Matt Casarez MD Sodium [Moles/Vol] 135 mmol/L Normal 135-145 [facility] Comment on above: Performed By: #### L 400.0076, L400.4800 #### Main Laboratory ([facility]) [address] [place] [address] Matt Casarez MD Urea nitrogen [Mass/Vol] 26 mg/dL High 7-20 [facility] Comment on above: Performed By: #### L 400.0076, L400.4800 #### Main Laboratory ([facility]) [address] [place] [address] Matt Casarez MD Comprehensive Metabolic Pane lOrdered By: Bart Juárez on 03-20-2019 Albumin [Mass/Vol] 3.9 g/dL [employer] Phone: Albumin/Globulin [Mass ratio] 1.2 {ratio} Low [facility] [employer] Work Phone: ALP [Catalytic activity/Vol] 57 U/L [facility] [employer] Work Phone: ALT [Catalytic activity/Vol] 42 U/L High [facility] [employer] Work Phone: Anion gap [Moles/Vol] 7 mmol/L [facility] Work Phone: AST [Catalytic activity/Vol] 24 U/L [facility] [employer] Work Phone: Bilirubin [Mass/Vol] 0.5 mg/dL 0.2 - 1 mg/dL [facility] [employer] Work Phone: Calcium [Mass/Vol] 9.30 mg/dL 8.8 - 10. 5 mg/dL [facility] [employer] Phone: Chloride [Moles/Vol] 97 mmol/L Low [facility] [employer] Work Phone: CO2 [Moles/Vol] 31 mmol/L [facility] Work Phone: Creatinine [Mass/Vol] 0.77 mg/dL 0.6 - 1.3 mg/dL [facility] [employer] Phone: Creatinine Clearance >60 [facility] [employer] Phone: Comment on above: Chronic Kidney Disea se stages by NKDF Stage eGFR I >90 II 60-89 III 30-59 IV 15-29 V <15 or dialysis AGE(years) AVERAGE GFR 50-59 93 ml/min/1.73 square meters Note:This result is normalized to 1.73 square meter body surface area. Height and weight are not factored. Glucose [Mass/Vol] 102 mg/dL 70 - 110 mg/dL [facility] [employer] Phone: Comment on above: *This reference rang e applies to fasting specimens only. Interpretation and review of laboratory results Abnormal [employer] Work Phone: Potassium [Moles/Vol] 4.3 mmol/L [facility] [employer] Work Phone: Protein [Mass/Vol] 7.1 g/dL 6.2 - 8 g/dL [facility] [employer] Phone: Sodium [Moles/Vol] 135 mmol/L [facility] [employer] Phone: Urea nitrogen [Mass/Vol] 26 mg/dL High 7 - 20 mg/dL [facility] [employer] Phone: Main Laboratory ([facility])[address], [place] [phone] el Nivar, MDOrdering Provider: Bart Juárez [facility] Phone: [place] MODIFIED BARIUM SWALLOW W VIDEOon 03-20-2019 [place] MODIFIED BARIUM SWALLOW W VIDEO PROCEDURE: FL MODIFIED BARIUM SWALLOW W VIDEO CLINICAL INFORMATION: dysphagia . COMPARISON: No prior study. TECHNIQUE: Modified barium swallow was performed by speech therapy in the radiology Department. The patient was administered barium of various consistencies. A radiologist was available for the entire exam. Images: 8 Fluoroscopy time: 58 seconds FINDINGS: There was laryngeal penetration with thin liquids. There was no aspiration. No aspiration or laryngeal penetration with the other tested consistencies. IMPRESSION: Laryngeal penetration with thin liquids. Recommendations additional comments from speech therapy to follow This report has been created using voice recognition software. It may contain minor errors which are inherent in voice recognition technology. Final report electronically signed by Dr. Christopher Lambert on 03/20/2019 10:00 AM Interpreted by: Christopher Lambert MD Signed by: Christopher Lambert MD 03/20/19 Final result Normal [facility] [place] MODIFIED BARIUM SWALLOW W VIDEOOrdered By: Bart Juárez on 03-20-2019 Laryngeal penetratio n with thin liquids. Recommendations additional comments from speech therapy to follow This report has been created using voice recognition software. It may contain minor errors which are inherent in voice recognition technology. Final report electronically signed by Dr. Christopher Lambert on 03/20/2019 10:00 AM [facility]: Basic Metabolic,Non-Fastingo n 03-19-2019 Anion gap [Moles/Vol] 9 mmol/L Normal 4-12 [facility] Comment on above: Performed By: #### L 400.0076, L400.4800 #### Main Laboratory ([facility]) [address] [place] [address] Matt Casarez MD Calcium [Mass/Vol] 9.20 mg/dL Normal 8.8-10.5 [facility] Comment on above: Performed By: #### L 400.0076, L400.4800 #### Main Laboratory ([facility]) [address] [place] [address] Matt Casarez MD Chloride [Moles/Vol] 96 mmol/L Low 101-111 [facility] Comment on above: Performed By: #### L 400.0076, L400.4800 #### Main Laboratory ([facility]) [address] [place] [address] Matt Casarez MD CO2 [Moles/Vol] 29 mmol/L Normal 21-32 [facility] Comment on above: Performed By: #### L 400.0076, L400.4800 #### Main Laboratory ([facility]) [address] [place] [address] Matt Casarez MD Creatinine [Mass/Vol] 0.68 mg/dL Normal 0.60-1.30 [facility] Comment on above: Performed By: #### L 400.0076, L400.4800 #### Main Laboratory ([facility]) [address] [place] [address] Matt Casarez MD GFR/1.73 sq M predicted among non-blacks MDRD (S/P/Bld) [Vol rate/Area] mL/min/{1.73_m2} Normal [facility] Comment on above: Result Comment: [employer] Kidney Disease stages by NKDF Stage eGFR I >90 II 60-89 III 30-59 IV 15-29 V <15 or dialysis AGE(years) AVERAGE GFR 50-59 93 ml/min/1.73 square meters Note:This result is normalized to 1.73 square meter body surface area. Height and weight are not factored. Performed By: #### L 400.0076, L400.4800 #### Main Laboratory ([facility]) [address] [place] [address] Matt Casarez MD Glucose [Mass/Vol] 91 mg/dL Normal 70-110 [facility] Comment on above: Result Comment: *Thi s reference range applies to fasting specimens only. Performed By: #### L 400.0076, L400.4800 #### Main Laboratory ([facility]) [address] [place] [address] Matt Casarez MD Potassium [Moles/Vol] 4.1 mmol/L Normal 3.6-5.0 [facility] Comment on above: Performed By: #### L 400.0076, L400.4800 #### Main Laboratory ([facility]) [address] [place] [address] Matt Casarez MD Sodium [Moles/Vol] 134 mmol/L Low 135-145 [facility] Comment on above: Performed By: #### L 400.0076, L400.4800 #### Main Laboratory ([facility]) [address] [place] [address] Matt Casarez MD Urea nitrogen [Mass/Vol] 17 mg/dL Normal 7-20 [facility] [facility] Comment on above: Performed By: #### L 400.0076, L400.4800 #### Main Laboratory ([facility]) [address] [place] [address] Matt Casarez MD Basic Metabolic PanelOrdered By: Bart Juárez on 03-18-2019 Anion gap [Moles/Vol] 3 mmol/L Low [facility] Phone: Calcium [Mass/Vol] 9.10 mg/dL 8.8 - 10. 5 mg/dL [facility] [employer] Work Phone: Chloride [Moles/Vol] 98 mmol/L Low [facility] [employer] Work Phone: CO2 [Moles/Vol] 31 mmol/L [facility] Work Phone: Creatinine [Mass/Vol] 0.66 mg/dL 0.6 - 1.3 mg/dL [facility] [employer] Work Phone: Creatinine Clearance >60 [facility] [employer] Work Phone: Comment on above: Chronic Kidney Disea se stages by NKDF Stage eGFR I >90 II 60-89 III 30-59 IV 15-29 V <15 or dialysis AGE(years) AVERAGE GFR 50-59 93 ml/min/1.73 square meters Note:This result is normalized to 1.73 square meter body surface area. Height and weight are not factored. Glucose [Mass/Vol] 87 mg/dL 70 - 110 mg/dL [facility] [employer] Phone: Comment on above: *This reference rang e applies to fasting specimens only. Potassium [Moles/Vol] 4.3 mmol/L [facility] [employer] Work Phone: Sodium [Moles/Vol] 132 mmol/L Low [facility] [employer] Work Phone: Urea nitrogen [Mass/Vol] 15 mg/dL 7 - 20 mg/dL [facility] [employer] Phone: Basic Metabolic,Non-Fastingo n 03-18-2019 Anion gap [Moles/Vol] 3 mmol/L Low 4-12 [facility] Comment on above: Performed By: #### L 400.0076, L400.4800 #### Main Laboratory ([facility]) [address] [place] [address] Matt Casarez MD Calcium [Mass/Vol] 9.10 mg/dL Normal 8.8-10.5 [facility] Comment on above: Performed By: #### L 400.0076, L400.4800 #### Main Laboratory ([facility]) [address] [place] [address] Matt Casarez MD Chloride [Moles/Vol] 98 mmol/L Low 101-111 [facility] Comment on above: Performed By: #### L 400.0076, L400.4800 #### Main Laboratory ([facility]) [address] [place] [address] Matt Casarez MD CO2 [Moles/Vol] 31 mmol/L Normal 21-32 [facility] Comment on above: Performed By: #### L 400.0076, L400.4800 #### Main Laboratory ([facility]) [address] [place] [address] Matt Casarez MD Creatinine [Mass/Vol] 0.66 mg/dL Normal 0.60-1.30 [facility] Comment on above: Performed By: #### L 400.0076, L400.4800 #### Main Laboratory ([facility]) [address] [place] [address] Matt Casarez MD GFR/1.73 sq M predicted among non-blacks MDRD (S/P/Bld) [Vol rate/Area] mL/min/{1.73_m2} Normal [facility] Comment on above: Result Comment: [employer] Kidney Disease stages by NKDF Stage eGFR I >90 II 60-89 III 30-59 IV 15-29 V <15 or dialysis AGE(years) AVERAGE GFR 50-59 93 ml/min/1.73 square meters Note:This result is normalized to 1.73 square meter body surface area. Height and weight are not factored. Performed By: #### L 400.0076, L400.4800 #### Main Laboratory ([facility]) [address] [place] [address] Matt Casarez MD Glucose [Mass/Vol] 87 mg/dL Normal 70-110 [facility] Comment on above: Result Comment: *Thi s reference range applies to fasting specimens only. Performed By: #### L 400.0076, L400.4800 #### Main Laboratory ([facility]) [address] [place] [address] Matt Casarez MD Potassium [Moles/Vol] 4.3 mmol/L Normal 3.6-5.0 [facility] Comment on above: Performed By: #### L 400.0076, L400.4800 #### Main Laboratory ([facility]) [address] [place] [address] Matt Casarez MD Sodium [Moles/Vol] 132 mmol/L Low 135-145 [facility] Comment on above: Performed By: #### L 400.0076, L400.4800 #### Main Laboratory ([facility]) [address] [place] [address] Matt Casarez MD Urea nitrogen [Mass/Vol] 15 mg/dL Normal 7-20 [facility] Comment on above: Performed By: #### L 400.0076, L400.4800 #### Main Laboratory ([facility]) [address] [place] [address] Matt Casarez MD Cortisol AM, TotalOrdered By : Bart Juárez on 03-18-2019 Cortisol - AM 2.2 Low [facility] Work Phone: Cortisol,Luis 03-18-2019 Cortisol,AM 2.2 mcg/dL Low 6.7-22.6 [facility] Comment on above: Performed By: #### L 400.0076, L400.4800 #### Main Laboratory ([facility]) [address] [place] [address] Matt Casarez MD Free T4on 03-18-2019 Free T4 [Mass/Vol] 0.79 ng/dL Normal 0.61-1.12 [place] [facility] Comment on above: Result Comment: Spec imens from patients who are undergoing biotin therapy and/or ingesting biotin supplements may produce significantly false high results for this assay. Results should be interpreted in light of the total clinical presentation of the patient, including symptoms, clinical history, and data from additional tests. Performed By: #### L 400.0076, L400.4800 #### Main Laboratory ([facility]) [address] [place] [address] Matt Casarez MD No Panel InformationOrdered By: Bart Juárez on 03-18-2019 Interpretation and review of laboratory results Abnormal [employer] Phone: Main Laboratory ([facility])[address], [place] [phone] el Nivar, MDOrdering Provider: Bart Juárez [employer] Phone: T4, FreeOrdered By: Bart Juárez on 03-18-2019 Free T4 [Mass/Vol] 0.79 ng/dL 0.61 - 1. 12 ng/dL [employer] Phone: Comment on above: Specimens from patie nts who are undergoing biotin therapy and/or ingesting biotin supplements may produce significantly false high results for this assay. Results should be interpreted in light of the total clinical presentation of the patient, including symptoms, clinical history, and data from additional tests. Basic Metabolic,Non-Fastingo n 03-17-2019 Anion gap [Moles/Vol] 7 mmol/L Normal 4-12 [facility] Comment on above: Performed By: #### L 400.0076, L400.4800 #### Main Laboratory ([facility]) [address] [place] [address] Matt Casarez MD Calcium [Mass/Vol] 8.90 mg/dL Normal 8.8-10.5 [facility] Comment on above: Performed By: #### L 400.0076, L400.4800 #### Main Laboratory ([facility]) [address] [place] [address] Matt Casarez MD Chloride [Moles/Vol] 98 mmol/L Low 101-111 [facility] Comment on above: Performed By: #### L 400.0076, L400.4800 #### Main Laboratory ([facility]) [address] [place] [address] Matt Casarez MD CO2 [Moles/Vol] 30 mmol/L Normal 21-32 [facility] Comment on above: Performed By: #### L 400.0076, L400.4800 #### Main Laboratory ([facility]) [address] [place] [address] Matt Casarez MD Creatinine [Mass/Vol] 0.55 mg/dL Low 0.60-1.30 [facility] Comment on above: Performed By: #### L 400.0076, L400.4800 #### Main Laboratory ([facility]) [address] [place] [address] Matt Casarez MD GFR/1.73 sq M predicted among non-blacks MDRD (S/P/Bld) [Vol rate/Area] mL/min/{1.73_m2} Normal [facility] Comment on above: Result Comment: [facility] harvey Kidney Disease stages by NKDF Stage eGFR I >90 II 60-89 III 30-59 IV 15-29 V <15 or dialysis AGE(years) AVERAGE GFR 50-59 93 ml/min/1.73 square meters Note:This result is normalized to 1.73 square meter body surface area. Height and weight are not factored. Performed By: #### L 400.0076, L400.4800 #### Main Laboratory ([facility]) [address] [place] [address] Matt Casarez MD Glucose [Mass/Vol] 112 mg/dL High 70-110 [facility] Comment on above: Performed By: #### L 400.0076, L400.4800 #### Main Laboratory ([facility]) [address] [place] [address] Matt Casarez MD Potassium [Moles/Vol] 4.5 mmol/L Normal 3.6-5.0 [facility] Comment on above: Performed By: #### L 400.0076, L400.4800 #### Main Laboratory ([facility]) [address] [place] [address] Matt Casarez MD Sodium [Moles/Vol] 135 mmol/L Normal 135-145 [facility] Comment on above: Performed By: #### L 400.0076, L400.4800 #### Main Laboratory ([facility]) [address] [place] [address] Matt Casarez MD Urea nitrogen [Mass/Vol] 18 mg/dL Normal 7-20 [facility] Comment on above: Performed By: #### L 400.0076, L400.4800 #### Main Laboratory ([facility]) [address] [place] [address] Matt Casarez MD CBC WITHOUT DIFFERENTIALOrde red By: Bart Juárez on 03-17-2019 Erythrocyte distribution width (RBC) [Ratio] 16.5 % High 12 - 16 % [employer] Phone: Hematocrit (Bld) [Volume fraction] 32.9 % Low 40 - 49 % [employer] Phone: Hemoglobin (Bld) [Mass/Vol] 11.0 g/dL Low [employer] Phone: Interpretation and review of laboratory results Abnormal [employer] Phone: MCH (RBC) [Entitic mass] 32.2 pg 27.5 - 33 PG [facility] [employer] Work Phone: MCHC (RBC) [Mass/Vol] 33.4 g/dL [facility] [employer] Work Phone: MCV (RBC) [Entitic vol] 96.4 fL [facility] [employer] Phone: Platelets (Bld) [#/Vol] 225 10*3/uL [facility] [employer] Work Phone: RBC (Bld) [#/Vol] 3.41 10*6/uL Low [facility] [employer] Phone: WBC (Bld) [#/Vol] 8.3 10*3/uL [facility] [employer] Phone: Main Laboratory ([facility])[address] [place], [place] [phone] el Nivar, MDOrdering Provider: Bart Juárez [facility] [employer] Phone: CBC Without Differentialon 0 - Erythrocyte distribution width (RBC) [Ratio] 16.5 % High 12.0-16.0 [facility] Comment on above: Performed By: #### L 400.0076, L425.4800 #### Main Laboratory ([facility]) [address] [place] [address] Matt Casarez MD Hematocrit (Bld) [Volume fraction] 32.9 % Low 40.0-49.0 [facility] Comment on above: Performed By: #### L 400.0076, [id number] #### Main Laboratory ([facility]) [address] [place] [address] Matt Casarez MD Hemoglobin (Bld) [Mass/Vol] 11.0 g/dL Low 13.5-16.5 [facility] Comment on above: Performed By: #### L 400.0076, [id number] #### Main Laboratory ([facility]) [address] [place] [address] Matt Casarez MD MCH (RBC) [Entitic mass] 32.2 pg Normal 27.5-33.0 [facility] Comment on above: Performed By: #### L 400.0076, L400.4800 #### Main Laboratory ([facility]) [address] [place] [address] Matt Casarez MD MCHC (RBC) [Mass/Vol] 33.4 g/dL Normal 33.0-36.0 [facility] Comment on above: Performed By: #### L 400.0076, L400.4800 #### Main Laboratory ([facility]) [address] [place] [address] Matt Casarez MD MCV (RBC) [Entitic vol] 96.4 [facility] Normal 80-97 [facility] Comment on above: Performed By: #### L 400.0076, L400.4800 #### Main Laboratory ([facility]) [address] [place] [address] Matt Casarez MD Platelets (Bld) [#/Vol] 225 th/cmm Normal 150-400 [facility] Comment on above: Performed By: #### L 400.0076, L400.4800 #### Main Laboratory ([facility]) [address] [place] [address] Matt Casarez MD RBC (Bld) [#/Vol] 3.41 mil/cmm Low 4.50-6.00 [facility] Comment on above: Performed By: #### L 400.0076, L400.4800 #### Main Laboratory ([facility]) [address] [place] [address] Matt Casarez MD WBC (Bld) [#/Vol] 8.3 th/cmm Normal 4.4-10.5 [facility] Comment on above: Performed By: #### L 400.0076, L400.4800 #### Main Laboratory ([facility]) [address] [place], [facility]04 Matt Casarez MD Comprehensive Metabolic Pane raymond 03-16-2019 Albumin [Mass/Vol] 3.6 g/dL Normal 3.5-5.0 [facility] Comment on above: Performed By: #### L 400.0076, L400.4800 #### Main Laboratory ([facility]) [address] [place], [place] [address] Matt Casarez MD Albumin/Globulin [Mass ratio] 1.2 {ratio} Low 1.5-2.5 [facility] Comment on above: Performed By: #### L 400.0076, L400.4800 #### Main Laboratory ([facility]) [address] [place], [place] [address] Matt Casarez MD Alk Phos 50 IU/L Normal 41-137 [facility] Comment on above: Performed By: #### L 400.0076, L400.4800 #### Main Laboratory ([facility]) [address] [place], [place] [address] Matt Casarez MD ALT/SGPT 46 IU/L High 10-40 [facility] Comment on above: Performed By: #### L 400.0076, L400.4800 #### Main Laboratory ([facility]) [address] [place], [place] [address] Matt Casarez MD Anion gap [Moles/Vol] 4 mmol/L Normal 4-12 [facility] Comment on above: Performed By: #### L 400.0076, L400.4800 #### Main Laboratory ([facility]) [address] [place], [facility]04 Matt Casarez MD AST/SGOT 26 IU/L Normal 15-41 [facility] Comment on above: Performed By: #### L 400.0076, L400.4800 #### Main Laboratory ([facility]) [address] [place] [address] Matt Casarez MD Bili,Total 0.5 mg/dL Normal 0.2-1.0 [facility] Comment on above: Performed By: #### L 400.0076, L400.4800 #### Main Laboratory ([facility]) [address] [place], [facility]04 Matt Casarez MD Calcium [Mass/Vol] 9.30 mg/dL Normal 8.8-10.5 [facility] Comment on above: Performed By: #### L 400.0076, L400.4800 #### Main Laboratory ([facility]) [address] [place], [facility]04 Matt Casarez MD Chloride [Moles/Vol] 97 mmol/L Low 101-111 [facility] Comment on above: Performed By: #### L 400.0076, L400.4800 #### Main Laboratory ([facility]) [address] [place] [address] Matt Casarez MD CO2 [Moles/Vol] 31 mmol/L Normal 21-32 [facility] Comment on above: Performed By: #### L 400.0076, L400.4800 #### Main Laboratory ([facility]) [address] [place] [address] Matt Casarez MD Creatinine [Mass/Vol] 0.61 mg/dL Normal 0.60-1.30 [facility] Comment on above: Performed By: #### L 400.0076, L400.4800 #### Main Laboratory ([facility]) [address] [place] [address] Matt Casarez MD GFR/1.73 sq M predicted among non-blacks MDRD (S/P/Bld) [Vol rate/Area] mL/min/{1.73_m2} Normal [facility] Comment on above: Result Comment: [employer] Kidney Disease stages by NKDF Stage eGFR I >90 II 60-89 III 30-59 IV 15-29 V <15 or dialysis AGE(years) AVERAGE GFR 50-59 93 ml/min/1.73 square meters Note:This result is normalized to 1.73 square meter body surface area. Height and weight are not factored. Performed By: #### L 400.0076, L400.4800 #### Main Laboratory ([facility]) [address] [place] [address] Matt Casarez MD Glucose [Mass/Vol] 100 mg/dL Normal 70-110 [facility] Comment on above: Result Comment: *Thi s reference range applies to fasting specimens only. Performed By: #### L 400.0076, [id number] #### Main Laboratory ([facility]) [address] [place] [address] Matt Casarez MD Potassium [Moles/Vol] 4.9 mmol/L Normal 3.6-5.0 [facility] Comment on above: Performed By: #### L 400.0076, L400.4800 #### Main Laboratory ([facility]) [address] [place] [address] Matt Casarez MD Protein [Mass/Vol] 6.7 g/dL Normal 6.2-8.0 [facility] Comment on above: Performed By: #### L 400.0076, L400.4800 #### Main Laboratory ([facility]) [address] [place] [address] Matt Casarez MD Sodium [Moles/Vol] 132 mmol/L Low 135-145 [facility] Comment on above: Performed By: #### L 400.0076, L400.4800 #### Main Laboratory ([facility]) [address] [place] [address] Matt Casarez MD Urea nitrogen [Mass/Vol] 21 mg/dL High 7-20 [facility] Comment on above: Performed By: #### L 400.0076, L400.4800 #### Main Laboratory ([facility]) [address] [place] [address] Matt Casarez MD Comprehensive Metabolic Pane lOrdered By: Bart Juárez on 03-16-2019 Albumin [Mass/Vol] 3.6 g/dL [facility] Work Phone: Albumin/Globulin [Mass ratio] 1.2 {ratio} Low [facility] [employer] Work Phone: ALP [Catalytic activity/Vol] 50 U/L [facility] Work Phone: ALT [Catalytic activity/Vol] 46 U/L High [facility] Work Phone: Anion gap [Moles/Vol] 4 mmol/L [facility] Work Phone: AST [Catalytic activity/Vol] 26 U/L [facility] Work Phone: Bilirubin [Mass/Vol] 0.5 mg/dL 0.2 - 1 mg/dL [facility] Work Phone: Calcium [Mass/Vol] 9.30 mg/dL 8.8 - 10. 5 mg/dL [facility] Work Phone: Chloride [Moles/Vol] 97 mmol/L Low [facility] Work Phone: CO2 [Moles/Vol] 31 mmol/L [facility] Work Phone: Creatinine [Mass/Vol] 0.61 mg/dL 0.6 - 1.3 mg/dL [facility] Work Phone: Creatinine Clearance >60 [facility] Work Phone: Comment on above: Chronic Kidney Disea se stages by NKDF Stage eGFR I >90 II 60-89 III 30-59 IV 15-29 V <15 or dialysis AGE(years) AVERAGE GFR 50-59 93 ml/min/1.73 square meters Note:This result is normalized to 1.73 square meter body surface area. Height and weight are not factored. Glucose [Mass/Vol] 100 mg/dL 70 - 110 mg/dL [employer] Phone: Comment on above: *This reference rang e applies to fasting specimens only. Interpretation and review of laboratory results Abnormal [facility]: Potassium [Moles/Vol] 4.9 mmol/L [employer] Phone: Protein [Mass/Vol] 6.7 g/dL 6.2 - 8 g/dL [facility] [employer] Phone: Sodium [Moles/Vol] 132 mmol/L [facility] Phone: Urea nitrogen [Mass/Vol] 21 mg/dL High 7 - 20 mg/dL [facility] Phone: Magnesiumon 03-16-2019 Magnesium [Mass/Vol] 1.8 mg/dL Normal 1.8-2.5 [facility] Comment on above: Performed By: #### L 400.0076, L400.4800 #### Main Laboratory ([facility]) [address] [place] [address] Matt Casarez MD MagnesiumOrdered By: Elias Juárez on 03-16-2019 Magnesium [Mass/Vol] 1.8 mg/dL 1.8 - 2 .5 mg/dL [facility] Phone: No Panel InformationOrdered By: Bart Juárez on 03-16-2019 Main Laboratory ([facility])[address] [place], [place] [phone] el Nivar, MDOrdering Provider: Bart Juárez [facility] Phone: Basic Metabolic PanelOrdered By: Bart Juárez on 03-15-2019 Anion gap [Moles/Vol] 5 mmol/L [facility] [employer] Work Phone: Calcium [Mass/Vol] 9.30 mg/dL 8.8 - 10. 5 mg/dL [facility] [employer] Work Phone: Chloride [Moles/Vol] 93 mmol/L Low [facility] Work Phone: CO2 [Moles/Vol] 32 mmol/L [facility] Work Phone: Creatinine [Mass/Vol] 0.72 mg/dL 0.6 - 1.3 mg/dL [facility] Work Phone: Creatinine Clearance >60 [facility] Work Phone: Comment on above: Chronic Kidney Disea se stages by NKDF Stage eGFR I >90 II 60-89 III 30-59 IV 15-29 V <15 or dialysis AGE(years) AVERAGE GFR 50-59 93 ml/min/1.73 square meters Note:This result is normalized to 1.73 square meter body surface area. Height and weight are not factored. Glucose [Mass/Vol] 140 mg/dL High 70 - 110 mg/dL [facility] Work Phone: Potassium [Moles/Vol] 4.6 mmol/L [facility] [employer] Work Phone: Sodium [Moles/Vol] 130 mmol/L Low [facility] [employer] Work Phone: Urea nitrogen [Mass/Vol] 25 mg/dL High 7 - 20 mg/dL [facility] [employer] Work Phone: Basic Metabolic,Non-Fastingo n 03-15-2019 Anion gap [Moles/Vol] 5 mmol/L Normal 4-12 [facility] Comment on above: Performed By: #### L 100.0050 #### Main Laboratory ([facility]) [address] [place] [address] Matt Casarez MD Calcium [Mass/Vol] 9.30 mg/dL Normal 8.8-10.5 [facility] Comment on above: Performed By: #### L 100.0050 #### Main Laboratory ([facility]) [address] [place] [address] Matt Casarez MD Chloride [Moles/Vol] 93 mmol/L Low 101-111 [facility] Comment on above: Performed By: #### L 100.0050 #### Main Laboratory ([facility]) [address] [place] [address] Matt Casarez MD CO2 [Moles/Vol] 32 mmol/L Normal 21-32 [facility] Comment on above: Performed By: #### L 100.0050 #### Main Laboratory ([facility]) [address] [place] [address] Matt Casarez MD Creatinine [Mass/Vol] 0.72 mg/dL Normal 0.60-1.30 [facility] Comment on above: Performed By: #### L 100.0050 #### Main Laboratory ([facility]) [address] [place] [address] Matt Casarez MD GFR/1.73 sq M predicted among non-blacks MDRD (S/P/Bld) [Vol rate/Area] mL/min/{1.73_m2} Normal [facility] Comment on above: Result Comment: [facility] harvey Kidney Disease stages by NKDF Stage eGFR I >90 II 60-89 III 30-59 IV 15-29 V <15 or dialysis AGE(years) AVERAGE GFR 50-59 93 ml/min/1.73 square meters Note:This result is normalized to 1.73 square meter body surface area. Height and weight are not factored. Performed By: #### L 100.0050 #### Main Laboratory ([facility]) [address] [place] [address] Matt Casarez MD Glucose [Mass/Vol] 140 mg/dL High 70-110 [facility] Comment on above: Performed By: #### L 100.0050 #### Main Laboratory ([facility]) [address] [place] [address] Matt Casarez MD Potassium [Moles/Vol] 4.6 mmol/L Normal 3.6-5.0 [facility] Comment on above: Performed By: #### L 100.0050 #### Main Laboratory ([facility]) [address] [place] [facility]04 Matt Casarez MD Sodium [Moles/Vol] 130 mmol/L Low 135-145 [facility] Comment on above: Performed By: #### L 100.0050 #### Main Laboratory ([facility]) [address] [facility]04 Matt Casarez MD Urea nitrogen [Mass/Vol] 25 mg/dL High 7-20 [facility] Comment on above: Performed By: #### L 100.0050 #### Main Laboratory ([facility]) [address] [place], [place] [address] Matt Casarez MD Chloride, Random Urineon Chloride (U) [Moles/Vol] 99 mmol/L Normal [facility] Comment on above: Performed By: #### L 400.0076, L400.4800 #### Main Laboratory ([facility]) [address] [place] [address] Matt Casarez MD IGF-1,LC/MSon 03-15-2019 IGF-1 <10 Low 37-245 [facility] Comment on above: Performed By: #### L 400.0076, L400.4800 #### Main Laboratory ([facility]) [address] [facility]04 Matt Casarez MD Z-score <-2.33 Normal -2.0 - +2.0 [facility] Comment on above: Result Comment: ---- ADDITIONAL INFORMATION This test was developed and its performance characteristics determined by [facility] in a manner consistent with CLIA requirements. This test has not been cleared or approved by the U.S. Food and Drug Administration. Test Performed by: [facility] [address] [place] [address] [employer] Worker: Mathew Gomez M.D. Ph.D.; CLIA# [id number] Performed By: #### L 400.0076, L400.4800 #### Main Laboratory ([facility]) [address] [place] [address] Matt Casarez MD MagnesiumOrdered By: Elias Juárez on 03-15-2019 Magnesium [Mass/Vol] 1.9 mg/dL 1.8 - 2 .5 mg/dL [facility] [employer] Phone: Magnesiumon 03-15-2019 Magnesium [Mass/Vol] 1.9 mg/dL Normal 1.8-2.5 [facility] Comment on above: Performed By: #### L 100.0050 #### Main Laboratory ([facility]) [address] [place] [address] Matt Casarez MD No Panel InformationOrdered By: Bart Juárez on 03-15-2019 Interpretation and review of laboratory results Abnormal [employer] Phone: Main Laboratory ([facility])[address], [place] [phone] el Nivar, MDOrdering Provider: Bart Juárez [facility] Phone: Osmolality, Urine Randomon 0 03-15-2019 Osmolality, Urine 546 mOsm Normal [facility] Comment on above: Result Comment: On a verage fluid intake: 300-900 mOsm/kg After 12-h fluid restriction: >850 mOsm/kg Performed By: #### L 400.0076, L400.4800 #### Main Laboratory ([facility]) [address] [place] [address] Matt Casarez MD PhosphorusOrdered By: Jesse Tovar on 03-15-2019 Phosphate [Mass/Vol] 4.2 mg/dL 2.4 - 4 .7 mg/dL [employer] Phone: Phosphoruson 03-15-2019 Phosphate [Mass/Vol] 4.2 mg/dL Normal 2.4-4.7 [facility] Comment on above: Performed By: #### L 100.0050 #### Main Laboratory ([facility]) [address] [place] [place] [address] Matt Casarez MD Sodium, Random Urineon 03-15 Sodium (U) [Moles/Vol] 131.0 mmol/L Normal [facility] Comment on above: Performed By: #### L 400.0076, L400.4800 #### Main Laboratory ([facility]) [address] [place] [place] [address] Matt Casarez MD Uric Acidon 03-15-2019 Urate [Mass/Vol] 3.1 mg/dL Low 4.8-8.7 [facility] Comment on above: Performed By: #### L 100.0050 #### Main Laboratory ([facility]) [address] [place] [address] Matt Casarez MD Uric AcidOrdered By: Elias Juárez on 03-15-2019 Urate [Mass/Vol] 3.1 mg/dL Low 4.8 - 8.7 mg/dL [employer] Phone: Arterial Blood Gason 020 ABG Device Cpap Normal [facility] Comment on above: Performed By: #### L 100.0050 #### Main Laboratory ([facility]) [address] [place] [facility]04 Matt Casarez MD ABG Draw Site R Radial Normal [facility] Comment on above: Performed By: #### L 100.0050 #### Main Laboratory ([facility]) [address] [place] [facility]04 Matt Casarez MD ABG Drawn By Kristina Lentz Normal [facility] Comment on above: Performed By: #### L 100.0050 #### Main Laboratory ([facility]) [address] [place], [place] [address] MD Cas Manzano's Test N/A Normal [facility] Comment on above: Performed By: #### L 100.0050 #### Main Laboratory ([facility]) [address] [place] [address] Matt Casarez MD Base Excess 6 mmol/L High -2-3 [facility] Comment on above: Performed By: #### L 100.0050 #### Main Laboratory ([facility]) [address] [place] [address] Matt Casarez MD FIO2 0.28 Normal [facility] Comment on above: Performed By: #### L 100.0050 #### Main Laboratory ([facility]) [address] [place] [address] Matt Casarez MD HCO3 (Bld) [Moles/Vol] 31.1 mmol/L High 22-26 [facility] Comment on above: Performed By: #### L 100.0050 #### Main Laboratory ([facility]) [address] [place] [address] Matt Casarez MD Oxygen (Bld) [Partial pressure] 85 mm[Hg] Normal 80-105 [facility] Comment on above: Performed By: #### L 100.0050 #### Main Laboratory ([facility]) [address] [place] [address] Matt Casarez MD Oxygen saturation in Blood 96 % Normal 95-98 [facility] Comment on above: Performed By: #### L 100.0050 #### Main Laboratory ([facility]) [address] [place] [address] Matt Casarez MD PCO2 51 mmHg High 35-45 [facility] Comment on above: Performed By: #### L 100.0050 #### Main Laboratory ([facility]) [address] [place] [address] Matt Casarez MD pH (Bld) 7.39 [pH] Normal 7.35-7.45 [facility] Comment on above: Performed By: #### L 100.0050 #### Main Laboratory ([facility]) [address] [place] [address] Matt Casarez MD Basic Metabolic,Non-Fastingo n 03-14-2019 Creatinine [Mass/Vol] 0.67 mg/dL Normal 0.60-1.30 [facility] Comment on above: Performed By: #### L 100.0050 #### Main Laboratory ([facility]) [address] [place] [address] Matt Casarez MD GFR/1.73 sq M predicted among non-blacks MDRD (S/P/Bld) [Vol rate/Area] mL/min/{1.73_m2} Normal [facility] Comment on above: Result Comment: [facility] Kidney Disease stages by NKDF Stage eGFR I >90 II 60-89 III 30-59 IV 15-29 V <15 or dialysis AGE(years) AVERAGE GFR 50-59 93 ml/min/1.73 square meters Note:This result is normalized to 1.73 square meter body surface area. Height and weight are not factored. Performed By: #### L 100.0050 #### Main Laboratory ([facility]) [address] [place] [address] Matt Casarez MD Glucose [Mass/Vol] 108 mg/dL Normal 70-110 [facility] Comment on above: Result Comment: *Thi s reference range applies to fasting specimens only. Performed By: #### L 100.0050 #### Main Laboratory ([facility]) [address] [place] [address] Matt Casarez MD Urea nitrogen [Mass/Vol] 20 mg/dL Normal 7-20 [facility] Comment on above: Performed By: #### L 100.0050 #### Main Laboratory ([facility]) [address] [place] [address] Matt Casarez MD Anion gap [Moles/Vol] 5 mmol/L Normal 4-12 [facility] Comment on above: Performed By: #### L 100.0050 #### Main Laboratory ([facility]) [address] [place] [address] Matt Casarez MD Calcium [Mass/Vol] 9.30 mg/dL Normal 8.8-10.5 [facility] Comment on above: Performed By: #### L 100.0050 #### Main Laboratory ([facility]) [address] [place] [address] Matt Casarez MD Chloride [Moles/Vol] 95 mmol/L Low 101-111 [facility] Comment on above: Performed By: #### L 100.0050 #### Main Laboratory ([facility]) [address] [place] [address] Matt Casarez MD CO2 [Moles/Vol] 33 mmol/L High 21-32 [facility] Comment on above: Performed By: #### L 100.0050 #### Main Laboratory ([facility]) [address] [place] [address] Matt Casarez MD Potassium [Moles/Vol] 5.0 mmol/L Normal 3.6-5.0 [facility] Comment on above: Performed By: #### L 100.0050 #### Main Laboratory ([facility]) [address] [place] [address] Matt Casarez MD Sodium [Moles/Vol] 133 mmol/L Low 135-145 [place] [facility] Comment on above: Performed By: #### L 100.0050 #### Main Laboratory ([facility]) [address] [place] [address] Matt Casarez MD Blood Gas, ArterialOrdered B y: Bart Marquita on 03-14-2019 Cas Test N/A [employer] Work Phone: Base Excess, Arterial 6 mmol/L High -2 - 3 mmol/L [employer] Work Phone: DEVICE Cpap [employer] Work Phone: Drawn By Kristina Lentz [facility] Work Phone: FIO2 0.28 [employer] Work Phone: HCO3 (Bld) [Moles/Vol] 31.1 mmol/L High 22 - 26 mmol/L [employer] Phone: Interpretation and review of laboratory results Abnormal [employer] Work Phone: Oxygen (Bld) [Partial pressure] 85 mm[Hg] [employer] Work Phone: Oxygen saturation in Blood 96 % 95 - 98 % [employer] Work Phone: PCO2 51 High [employer] Work Phone: pH (Bld) 7.39 [pH] [employer] Work Phone: Site R Radial [employer] Work Phone: Main Laboratory ([facility])[address], [place] [phone] el Nivar, MDOrdering Provider: Bart Palgam [employer] Phone: CBC WITHOUT DIFFERENTIALOrde red By: Bart Juárez on 03-14-2019 Erythrocyte distribution width (RBC) [Ratio] 16.3 % High 12 - 16 % [employer] Phone: Hematocrit (Bld) [Volume fraction] 32.2 % Low 40 - 49 % [employer] Phone: Hemoglobin (Bld) [Mass/Vol] 10.8 g/dL Low [employer] Phone: Interpretation and review of laboratory results Abnormal [employer] Phone: MCH (RBC) [Entitic mass] 32.1 pg 27.5 - 33 PG [employer] Phone: MCHC (RBC) [Mass/Vol] 33.6 g/dL [facility] [employer] Phone: MCV (RBC) [Entitic vol] 95.7 fL [facility] Phone: Platelets (Bld) [#/Vol] 220 10*3/uL [employer] Phone: RBC (Bld) [#/Vol] 3.37 10*6/uL Low [employer] Phone: WBC (Bld) [#/Vol] 6.5 10*3/uL [employer] Phone: Main Laboratory ([facility])[address] [place], [place] [phone] el Nivar, MDOrdering Provider: Jesseadelfo Jaron Juárez [employer] Phone: CBC Without Differentialon 0 03-14-2019 Erythrocyte distribution width (RBC) [Ratio] 16.3 % High 12.0-16.0 [facility] Comment on above: Performed By: #### L 100.0050 #### Main Laboratory ([facility]) [address] [place] [address] Matt Casarez MD Hematocrit (Bld) [Volume fraction] 32.2 % Low 40.0-49.0 [facility] Comment on above: Performed By: #### L 100.0050 #### Main Laboratory ([facility]) [address] [place] [address] Matt Casarez MD Hemoglobin (Bld) [Mass/Vol] 10.8 g/dL Low 13.5-16.5 [facility] Comment on above: Performed By: #### L 100.0050 #### Main Laboratory ([facility]) [address] [place] [address] Matt Casarez MD MCH (RBC) [Entitic mass] 32.1 pg Normal 27.5-33.0 [facility] Comment on above: Performed By: #### L 100.0050 #### Main Laboratory ([facility]) [address] [place] [address] Matt Casarez MD MCHC (RBC) [Mass/Vol] 33.6 g/dL Normal 33.0-36.0 [facility] Comment on above: Performed By: #### L 100.0050 #### Main Laboratory ([facility]) [address] [place] [address] Matt Casarez MD MCV (RBC) [Entitic vol] 95.7 [facility] Normal 80-97 [facility] Comment on above: Performed By: #### L 100.0050 #### Main Laboratory ([facility]) [address] [place] [address] Matt Casarez MD Platelets (Bld) [#/Vol] 220 th/cmm Normal 150-400 [facility] Comment on above: Performed By: #### L 100.0050 #### Main Laboratory ([facility]) [address] [place] [address] Matt Casarez MD RBC (Bld) [#/Vol] 3.37 mil/cmm Low 4.50-6.00 [facility] Comment on above: Performed By: #### L 100.0050 #### Main Laboratory ([facility]) [address] [place], [place] [address] Matt Casarez MD WBC (Bld) [#/Vol] 6.5 th/cmm Normal 4.4-10.5 [facility] Comment on above: Performed By: #### L 100.0050 #### Main Laboratory ([facility]) [address] [place], [place] [address] Matt Casarez MD 25([place]) Vitamin D,Totalon 25(OH) Vitamin D,Total 36.60 ng/mL Normal 30.00-100.00 [facility] Comment on above: Result Comment: Opti mal values are established by the Clinical Guidelines Subcommittee of the Endocrine Society Task Force. (Journal of Clinical Endocrinology & Metabolism,2011;96) Status Vitamin D Concentration Range ------- Deficient <20 Insufficient 20 - 30 Sufficient 30 - 100 Performed By: #### L 100.0050 #### Main Laboratory ([facility]) [address] [place] [address] Matt Casarez MD Basic Metabolic,Non-Fastingo n 03-13-2019 Anion gap [Moles/Vol] 3 mmol/L Low 4-12 [facility] Comment on above: Performed By: #### L 100.0050 #### Main Laboratory ([facility]) [address] [place] [address] Matt Casarez MD Calcium [Mass/Vol] 9.20 mg/dL Normal 8.8-10.5 [facility] Comment on above: Performed By: #### L 100.0050 #### Main Laboratory ([facility]) [address] [place] [address] Matt Casarez MD Chloride [Moles/Vol] 99 mmol/L Low 101-111 [facility] Comment on above: Performed By: #### L 100.0050 #### Main Laboratory ([facility]) [address] [place] [address] Matt Casarez MD CO2 [Moles/Vol] 32 mmol/L Normal 21-32 [facility] Comment on above: Performed By: #### L 100.0050 #### Main Laboratory ([facility]) [address] [place] [address] Matt Casarez MD Creatinine [Mass/Vol] 0.61 mg/dL Normal 0.60-1.30 [facility] Comment on above: Performed By: #### L 100.0050 #### Main Laboratory ([facility]) [address] [place] [address] Matt Casarez MD GFR/1.73 sq M predicted among non-blacks MDRD (S/P/Bld) [Vol rate/Area] mL/min/{1.73_m2} Normal [facility] Comment on above: Result Comment: [facility] Kidney Disease stages by NKDF Stage eGFR I >90 II 60-89 III 30-59 IV 15-29 V <15 or dialysis AGE(years) AVERAGE GFR 50-59 93 ml/min/1.73 square meters Note:This result is normalized to 1.73 square meter body surface area. Height and weight are not factored. Performed By: #### L 100.0050 #### Main Laboratory ([facility]) [address] [place] [address] Matt Casarez MD Glucose [Mass/Vol] 118 mg/dL High 70-110 [facility] Comment on above: Performed By: #### L 100.0050 #### Main Laboratory ([facility]) [address] [place] [address] Matt Casarez MD Potassium [Moles/Vol] 3.9 mmol/L Normal 3.6-5.0 [facility] Comment on above: Performed By: #### L 100.0050 #### Main Laboratory ([facility]) [address] [place] [facility]04 Matt Casarez MD Sodium [Moles/Vol] 134 mmol/L Low 135-145 [facility] Comment on above: Performed By: #### L 100.0050 #### Main Laboratory ([facility]) [address] [place] [address] Matt Casarez MD Urea nitrogen [Mass/Vol] 17 mg/dL Normal 7-20 [facility] Comment on above: Performed By: #### L 100.0050 #### Main Laboratory ([facility]) [address] [place] [address] aMtt Casarez MD Comprehensive Metabolic Pane [facility] 03-13-2019 Albumin [Mass/Vol] 3.8 g/dL Normal 3.5-5.0 [facility] Comment on above: Performed By: #### L 100.0050 #### Main Laboratory ([facility]) [address] [place] [address] Matt Casarez MD Albumin/Globulin [Mass ratio] 1.3 {ratio} Low 1.5-2.5 [facility] Comment on above: Performed By: #### L 100.0050 #### Main Laboratory ([facility]) [address] [place] [facility]04 Matt Casarez MD Alk Phos 51 IU/L Normal 41-137 [facility] Comment on above: Performed By: #### L 100.0050 #### Main Laboratory ([facility]) [address] [place] [id number] Matt Casarez MD ALT/SGPT 27 IU/L Normal 10-40 [facility] Comment on above: Performed By: #### L 100.0050 #### Main Laboratory ([facility]) [address] [place] [address] Matt Casarez MD Anion gap [Moles/Vol] 4 mmol/L Normal 4-12 [facility] Comment on above: Performed By: #### L 100.0050 #### Main Laboratory ([facility]) [address] [place] [address] Matt Casarez MD AST/SGOT 22 IU/L Normal 15-41 [facility] Comment on above: Performed By: #### L 100.0050 #### Main Laboratory ([facility]) [address] [place] [address] Matt Casarez MD Bili,Total 0.4 mg/dL Normal 0.2-1.0 [facility] Comment on above: Performed By: #### L 100.0050 #### Main Laboratory ([facility]) [address] [place] [facility]04 Matt Casarez MD Calcium [Mass/Vol] 9.00 mg/dL Normal 8.8-10.5 [facility] Comment on above: Performed By: #### L 100.0050 #### Main Laboratory ([facility]) [address] [place] [address] Matt Casarez MD Chloride [Moles/Vol] 99 mmol/L Low 101-111 [facility] Comment on above: Performed By: #### L 100.0050 #### Main Laboratory ([facility]) [address] [place] [facility]04 Matt Casarez MD CO2 [Moles/Vol] 31 mmol/L Normal 21-32 [facility] Comment on above: Performed By: #### L 100.0050 #### Main Laboratory ([facility]) [address] [place] [facility]04 Matt Casarez MD Creatinine [Mass/Vol] 0.56 mg/dL Low 0.60-1.30 [facility] Comment on above: Performed By: #### L 100.0050 #### Main Laboratory ([facility]) [address] [place] [address] Matt Casarez MD GFR/1.73 sq M predicted among non-blacks MDRD (S/P/Bld) [Vol rate/Area] mL/min/{1.73_m2} Normal [facility] Comment on above: Result Comment: [facility] Kidney Disease stages by NKDF Stage eGFR I >90 II 60-89 III 30-59 IV 15-29 V <15 or dialysis AGE(years) AVERAGE GFR 50-59 93 ml/min/1.73 square meters Note:This result is normalized to 1.73 square meter body surface area. Height and weight are not factored. Performed By: #### L 100.0050 #### Main Laboratory ([facility]) [address] [place] [address] Matt Casarez MD Glucose [Mass/Vol] 114 mg/dL High 70-110 [facility] Comment on above: Performed By: #### L 100.0050 #### Main Laboratory ([facility]) [address] [place] [address] Matt Casarez MD Potassium [Moles/Vol] 3.8 mmol/L Normal 3.6-5.0 [facility] Comment on above: Performed By: #### L 100.0050 #### Main Laboratory ([facility]) [address] [place] [address] Matt Casarez MD Protein [Mass/Vol] 6.8 g/dL Normal 6.2-8.0 [facility] Comment on above: Performed By: #### L 100.0050 #### Main Laboratory ([facility]) [address] [place] [id number] Matt Casarez MD Sodium [Moles/Vol] 134 mmol/L Low 135-145 [facility] Comment on above: Result Comment: Delt a: 128 on 03/12/190 Performed By: #### L 100.0050 #### Main Laboratory ([facility]) [address] [place] [address] Matt Casarez MD Urea nitrogen [Mass/Vol] 17 mg/dL Normal 7-20 [facility] Comment on above: Performed By: #### L 100.0050 #### Main Laboratory ([facility]) [address] [place], [place] [id number] Matt Casarez MD Comprehensive Metabolic Pane lOrdered By: Bart Juárez on 03-13-2019 Albumin [Mass/Vol] 3.8 g/dL [facility] Work Phone: Albumin/Globulin [Mass ratio] 1.3 {ratio} Low [facility] Work Phone: ALP [Catalytic activity/Vol] 51 U/L [facility] Work Phone: ALT [Catalytic activity/Vol] 27 U/L [facility] Work Phone: Anion gap [Moles/Vol] 4 mmol/L [facility] Work Phone: AST [Catalytic activity/Vol] 22 U/L [facility] Work Phone: Bilirubin [Mass/Vol] 0.4 mg/dL 0.2 - 1 mg/dL [facility] Work Phone: Calcium [Mass/Vol] 9.00 mg/dL 8.8 - 10. 5 mg/dL [facility] Work Phone: Chloride [Moles/Vol] 99 mmol/L Low [facility] Work Phone: CO2 [Moles/Vol] 31 mmol/L [facility] Work Phone: Creatinine [Mass/Vol] 0.56 mg/dL Low 0.6 - 1.3 mg/dL [facility] Phone: Creatinine Clearance >60 [facility] Phone: Comment on above: Chronic Kidney Disea se stages by NKDF Stage eGFR I >90 II 60-89 III 30-59 IV 15-29 V <15 or dialysis AGE(years) AVERAGE GFR 50-59 93 ml/min/1.73 square meters Note:This result is normalized to 1.73 square meter body surface area. Height and weight are not factored. Glucose [Mass/Vol] 114 mg/dL High 70 - 110 mg/dL [facility] Phone: Interpretation and review of laboratory results Abnormal [facility] Phone: Potassium [Moles/Vol] 3.8 mmol/L [facility] [employer] Phone: Protein [Mass/Vol] 6.8 g/dL 6.2 - 8 g/dL [facility] Phone: Sodium [Moles/Vol] 134 mmol/L Low [facility] [employer] Phone: Comment on above: Delta: 128 on -0400 Urea nitrogen [Mass/Vol] 17 mg/dL 7 - 20 mg/dL [facility] Phone: Main Laboratory ([facility])[address] [place], [place] [phone] el Nivar, MDOrdering Provider: Bart Juárez [facility] Phone: Basic Metabolic,Non-Fastingo n 03-12-2019 Anion gap [Moles/Vol] 7 mmol/L Normal 4-12 [facility] [facility] Comment on above: Performed By: #### L 400.0076, L404.6500 #### Main Laboratory ([facility]) [address] [place] [address] Matt Casarez MD Calcium [Mass/Vol] 8.90 mg/dL Normal 8.8-10.5 [facility] Comment on above: Performed By: #### L 400.0076, L404.6500 #### Main Laboratory ([facility]) [address] [place] [address] Matt Casarez MD Chloride [Moles/Vol] 95 mmol/L Low 101-111 [facility] Comment on above: Performed By: #### L 400.0076, L404.6500 #### Main Laboratory ([facility]) [address] [place] [address] Matt Casarez MD CO2 [Moles/Vol] 26 mmol/L Normal 21-32 [facility] Comment on above: Performed By: #### L 400.0076, L404.6500 #### Main Laboratory ([facility]) [address] [place] [address] Matt Casarez MD Creatinine [Mass/Vol] 0.58 mg/dL Low 0.60-1.30 [facility] Comment on above: Performed By: #### L 400.0076, L404.6500 #### Main Laboratory ([facility]) [address] [place] [address] Matt Casarez MD GFR/1.73 sq M predicted among non-blacks MDRD (S/P/Bld) [Vol rate/Area] mL/min/{1.73_m2} Normal [facility] Comment on above: Result Comment: Aircraft Rest[employer] harvey Kidney Disease stages by NKDF Stage eGFR I >90 II 60-89 III 30-59 IV 15-29 V <15 or dialysis AGE(years) AVERAGE GFR 50-59 93 ml/min/1.73 square meters Note:This result is normalized to 1.73 square meter body surface area. Height and weight are not factored. Performed By: #### L 400.0076, L404.6500 #### Main Laboratory ([facility]) [address] [place] [address] Matt Casarez MD Glucose [Mass/Vol] 176 mg/dL High 70-110 [facility] Comment on above: Performed By: #### L 400.0076, L404.6500 #### Main Laboratory ([facility]) [address] [place] [address] Matt Casarez MD Potassium [Moles/Vol] 4.7 mmol/L Normal 3.6-5.0 [facility] Comment on above: Performed By: #### L 400.0076, L404.6500 #### Main Laboratory ([facility]) [address] [place] [address] Matt Casarez MD Sodium [Moles/Vol] 128 mmol/L Low 135-145 [facility] Comment on above: Performed By: #### L 400.0076, L404.6500 #### Main Laboratory ([facility]) [address] [place] [address] Matt Casarez MD Urea nitrogen [Mass/Vol] 23 mg/dL High 7-20 [facility] Comment on above: Performed By: #### L 400.0076, L404.6500 #### Main Laboratory ([facility]) [address] [place] [id number] Matt Casarez MD FSH,Adult (18 or Older)on FSH,Adult (18 or Older) 0.60 mIU/mL Low 1.00-8.00 [facility] Comment on above: Result Comment: Fo llicle Stimulating Hormone Interpretation Normally menstruating females Mid- Follicular Phase: 3.85-8.78 mIU/ML Mid-cycle Peak: 5.54-22.51 mIU/ML Mid- Luteal Phase: 1.79-5.12 mIU/ML Postmenopausal females: 16.74-113.59 mIU/ML Performed By: #### L 400.0076, L404.6500 #### Main Laboratory ([facility]) [address] [place] [address] Matt Casarez MD LH,Adult (18 or Older)on LH,Adult (18 or Older) < 0.2 Low 1.2-8.6 [facility] Comment on above: Result Comment: Linda teinizing Hormone Interpretation Normally menstruating females: Mid-Follicular Phase: 2.12-10.89 mIU/ML Mid-cycle Peak: 19.18-103.03 mIU/ML Mid-Luteal Phase: 1.20-12.86 mIU/ML Postmenopausal females: 10.87-58.64 mIU/ML Performed By: #### L 400.0076, L404.6500 #### Main Laboratory ([facility]) [address] [place] [address] Matt Casarez MD Prolactinon 03-12-2019 Prolactin 5.60 ng/mL Normal 2.64-13.13 [facility] Comment on above: Performed By: #### L 400.0076, L404.6500 #### Main Laboratory ([facility]) [address] [place] [address] Matt Casarez MD Testosteroneon 03-12-2019 Testosterone [Mass/Vol] ng/dL Low 1.55-7.21 [facility] Comment on above: Performed By: #### L 400.0076, L404.6500 #### Main Laboratory ([facility]) [address] [place] [address] Matt Casarez MD Basic Metabolic PanelOrdered By: Bart Juárez on 03-11-2019 Anion gap [Moles/Vol] 5 mmol/L [facility] [employer] Work Phone: Calcium [Mass/Vol] 8.60 mg/dL Low 8.8 - 10. 5 mg/dL [facility] [employer] Work Phone: Chloride [Moles/Vol] 92 mmol/L Low [facility] [employer] Work Phone: CO2 [Moles/Vol] 30 mmol/L [facility] Work Phone: Creatinine [Mass/Vol] 0.66 mg/dL 0.6 - 1.3 mg/dL [facility] [employer] Work Phone: Creatinine Clearance >60 [facility] [employer] Work Phone: Comment on above: Chronic Kidney Disea se stages by NKDF Stage eGFR I >90 II 60-89 III 30-59 IV 15-29 V <15 or dialysis AGE(years) AVERAGE GFR 50-59 93 ml/min/1.73 square meters Note:This result is normalized to 1.73 square meter body surface area. Height and weight are not factored. Glucose [Mass/Vol] 100 mg/dL 70 - 110 mg/dL [facility] [employer] Work Phone: Comment on above: *This reference rang e applies to fasting specimens only. Potassium [Moles/Vol] 4.3 mmol/L [facility] [employer] Work Phone: Sodium [Moles/Vol] 127 mmol/L Low [facility] [employer] Phone: Urea nitrogen [Mass/Vol] 26 mg/dL High 7 - 20 mg/dL [facility] [employer] Work Phone: Basic Metabolic,Non-Fastingo n 03-11-2019 Anion gap [Moles/Vol] 5 mmol/L Normal 4-12 [facility] Comment on above: Performed By: #### L 400.0076, L404.6500 #### Main Laboratory ([facility]) [address] [place] [address] Matt Casarez MD Calcium [Mass/Vol] 8.60 mg/dL Low 8.8-10.5 [place] [facility] Comment on above: Performed By: #### L 400.0076, L404.6500 #### Main Laboratory ([facility]) [address] [place] [address] Matt Casarez MD Chloride [Moles/Vol] 92 mmol/L Low 101-111 [facility] Comment on above: Performed By: #### L 400.0076, L404.6500 #### Main Laboratory ([facility]) [address] [place] [address] Matt Casarez MD CO2 [Moles/Vol] 30 mmol/L Normal 21-32 [facility] Comment on above: Performed By: #### L 400.0076, L404.6500 #### Main Laboratory ([facility]) [address] [place] [address] Matt Casarez MD Creatinine [Mass/Vol] 0.66 mg/dL Normal 0.60-1.30 [facility] Comment on above: Performed By: #### L 400.0076, L404.6500 #### Main Laboratory ([facility]) [address] [place] 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 Height and weight are not factored. Performed By: #### L 400.0076, L404.6500 #### Main Laboratory ([facility]) [address] [place] [address] Matt Casarez MD Glucose [Mass/Vol] 100 mg/dL Normal 70-110 [facility] Comment on above: Result Comment: *Thi s reference range applies to fasting specimens only. Performed By: #### L 400.0076, L404.6500 #### Main Laboratory ([facility]) [address] [place] [address] Matt Casarez MD Potassium [Moles/Vol] 4.3 mmol/L Normal 3.6-5.0 [facility] Comment on above: Performed By: #### L 400.0076, L404.6500 #### Main Laboratory ([facility]) [address] [place] [address] Matt Casarez MD Sodium [Moles/Vol] 127 mmol/L Low 135-145 [facility] Comment on above: Performed By: #### L 400.0076, L404.6500 #### Main Laboratory ([facility]) [address] [place] [facility]04 Matt Casarez MD Urea nitrogen [Mass/Vol] 26 mg/dL High 7-20 [facility] Comment on above: Performed By: #### L 400.0076, L404.6500 #### Main Laboratory ([facility]) [address] [place] [address] Matt Casarez MD Chloride, Random Urineon Chloride (U) [Moles/Vol] 83 mmol/L Normal [facility] Comment on above: Performed By: #### L 400.0076, L404.6500 #### Main Laboratory ([facility]) [address] [place] [address] Matt Casarez MD Cortisol AM, TotalOrdered By : Bart Juárez on 03-11-2019 Cortisol - AM 7.8 [facility] Work Phone: Main Laboratory ([facility])[address] [phone] el Nivar, MDOrdering Provider: Bart Salmeron [employer] Phone: Cortisol - AM 4.4 Low [facility] Work Phone: Cortisol - AM 7.9 [facility] Work Phone: Main Laboratory ([facility])[address], [place] [phone] el Nivar, MDOrdering Provider: Bart Salmeron [employer] Work Phone: Cortisol - AM 6.6 Low [facility] Work Phone: Interpretation and review of laboratory results Abnormal [employer] Phone: Main Laboratory ([facility])[address], [place] [phone] el Nivar, MDOrdering Provider: [employer]ra Salmeron [employer] Work Phone: Cortisol,Luis 03-11-2019 Cortisol,AM 7.8 mcg/dL Normal 6.7-22.6 [facility] Comment on above: Performed By: #### L 400.0076, L404.6500 #### Main Laboratory ([facility]) [address] [place] [address] Matt Casarez MD Cortisol,AM 4.4 mcg/dL Low 6.7-22.6 [facility] Comment on above: Performed By: #### L 400.0076, L404.6500 #### Main Laboratory ([facility]) [address] [place] [address] Matt Casarez MD Cortisol,AM 7.9 mcg/dL Normal 6.7-22.6 [facility] Comment on above: Performed By: #### L 400.0076, L404.6500 #### Main Laboratory ([facility]) [address] [place] [address] Matt Casarez MD Cortisol,AM 6.6 mcg/dL Low 6.7-22.6 [facility] Comment on above: Performed By: #### L 400.0076, L404.6500 #### Main Laboratory ([facility]) [address] [place] [address] Matt Casarez MD Magnesiumon 03-11-2019 Magnesium [Mass/Vol] 1.9 mg/dL Normal 1.8-2.5 [facility] Comment on above: Performed By: #### L 400.0076, L404.6500 #### Main Laboratory ([facility]) [address] [place] [address] Matt Casarez MD MagnesiumOrdered By: Elias Juárez on 03-11-2019 Magnesium [Mass/Vol] 1.9 mg/dL 1.8 - 2 .5 mg/dL [facility] Phone: No Panel InformationOrdered By: Bart Juárez on 03-11-2019 Interpretation and review of laboratory results Abnormal [employer] Phone: Main Laboratory ([facility])[address], [place] [phone] el Nivar, MDOrdering Provider: Bart Juárez [facility] Phone: Osmolality, Urine Randomon 0 03-11-2019 Osmolality, Urine 411 mOsm Normal [facility] Comment on above: Result Comment: Delt a: 517 on 03/09/19-0535 On average fluid intake: 300-900 mOsm/kg After 12-h fluid restriction: >850 mOsm/kg Performed By: #### L 400.0076, L404.6500 #### Main Laboratory ([facility]) [address] [place] [address] Matt Casarez MD Phosphoruson 03-11-2019 Phosphate [Mass/Vol] 4.2 mg/dL Normal 2.4-4.7 [facility] Comment on above: Performed By: #### L 400.0076, L404.6500 #### Main Laboratory ([facility]) [address] [place] [address] Matt Casarez MD PhosphorusOrdered By: Jesse Tovar on 03-11-2019 Phosphate [Mass/Vol] 4.2 mg/dL 2.4 - 4 .7 mg/dL [facility] [employer] Phone: Sodium, Random Urineon 03-11 Sodium (U) [Moles/Vol] 96.0 mmol/L Normal L [facility] Comment on above: Performed By: #### L 400.0076, L404.6500 #### Main Laboratory ([facility]) [address] [place] [address] Matt Casarez MD Uric Acidon 03-11-2019 Urate [Mass/Vol] 3.1 mg/dL Low 4.8-8.7 [facility] Comment on above: Performed By: #### L 400.0076, L404.6500 #### Main Laboratory ([facility]) [address] [place] [address] Matt Casarez MD Uric AcidOrdered By: Elias Juárez on 03-11-2019 Urate [Mass/Vol] 3.1 mg/dL Low 4.8 - 8.7 mg/dL [facility] Phone: Arterial Blood Gason 020 ABG Device Trach Mask Normal [facility] Comment on above: Performed By: #### L 400.0076, L404.6500 #### Main Laboratory ([facility]) [address] [place] [address] Matt Casarez MD ABG Draw Site R Brachial Normal [facility] Comment on above: Performed By: #### L 400.0076, L404.6500 #### Main Laboratory ([facility]) [address] [place] [facility]04 Matt Casarez MD ABG Drawn By Dalia Barakat Normal [facility] Comment on above: Performed By: #### L 400.0076, L404.6500 #### Main Laboratory ([facility]) [address] [place] [address] Matt Casarez MD Cas's Test N/A Normal [facility] Comment on above: Performed By: #### L 400.0076, L404.6500 #### Main Laboratory ([facility]) [address] [place], [place] [address] Matt Casarez MD Base Excess 5 mmol/L High -2-3 [facility] Comment on above: Performed By: #### L 400.0076, L404.6500 #### Main Laboratory ([facility]) [address] [place], [place] [address] Matt Casarez MD FIO2 0.35 Normal [facility] Comment on above: Performed By: #### L 400.0076, L404.6500 #### Main Laboratory ([facility]) [address] [place], [place] [address] Matt Casarez MD HCO3 (Bld) [Moles/Vol] 29.6 mmol/L High 22-26 L [facility] Comment on above: Performed By: #### L 400.0076, L404.6500 #### Main Laboratory ([facility]) [address] [place], [place] [address] Matt Casarez MD Oxygen (Bld) [Partial pressure] 99 mm[Hg] Normal 80-105 [facility] Comment on above: Performed By: #### L 400.0076, L404.6500 #### Main Laboratory ([facility]) [address] [place], [place] [address] Matt Casarez MD Oxygen saturation in Blood 98 % Normal 95-98 [facility] Comment on above: Performed By: #### L 400.0076, L404.6500 #### Main Laboratory ([facility]) [address] [place] [address] Matt Casarez MD PCO2 45 mmHg Normal 35-45 [facility] Comment on above: Performed By: #### L 400.0076, L404.6500 #### Main Laboratory ([facility]) [address] [place] [address] Matt Casarez MD pH (Bld) 7.42 [pH] Normal 7.35-7.45 [facility] Comment on above: Performed By: #### L 400.0076, L404.6500 #### Main Laboratory ([facility]) [address] [place] [address] Matt Casarez MD Unit Notified? Yes Normal [facility] Comment on above: Performed By: #### L 400.0076, L404.6500 #### Main Laboratory ([facility]) [address] [place] [id number] Matt Casarez MD Basic Metabolic PanelOrdered By: Bart Juárez on 03-10-2019 Anion gap [Moles/Vol] 4 mmol/L [facility] [employer] Work Phone: Calcium [Mass/Vol] 9.10 mg/dL 8.8 - 10. 5 mg/dL [facility] Work Phone: Chloride [Moles/Vol] 90 mmol/L Low [facility] [employer] Work Phone: CO2 [Moles/Vol] 32 mmol/L [facility] Work Phone: Creatinine [Mass/Vol] 0.71 mg/dL 0.6 - 1.3 mg/dL [facility] Work Phone: Creatinine Clearance >60 [facility] [employer] Work Phone: Comment on above: Chronic Kidney Disea se stages by NKDF Stage eGFR I >90 II 60-89 III 30-59 IV 15-29 V <15 or dialysis AGE(years) AVERAGE GFR 50-59 93 ml/min/1.73 square meters Note:This result is normalized to 1.73 square meter body surface area. Height and weight are not factored. Glucose [Mass/Vol] 96 mg/dL 70 - 110 mg/dL [employer] Phone: Comment on above: *This reference rang e applies to fasting specimens only. Potassium [Moles/Vol] 4.6 mmol/L [facility] [employer] Phone: Sodium [Moles/Vol] 126 mmol/L Low [facility] Phone: Urea nitrogen [Mass/Vol] 26 mg/dL High 7 - 20 mg/dL [employer] Phone: Basic Metabolic,Non-Fastingo n 03-10-2019 Anion gap [Moles/Vol] 4 mmol/L Normal 4-12 [facility] Comment on above: Performed By: #### L 400.0152, L404.7200, L404.9400, L404.7250, L404.7300 #### Main Laboratory ([facility]) [address] [place] [address] Matt Casarez MD Calcium [Mass/Vol] 9.10 mg/dL Normal 8.8-10.5 [facility] Comment on above: Performed By: #### L 400.0152, L404.7200, L404.9400, L404.7250, L404.7300 #### Main Laboratory ([facility]) [address] [place] [address] Matt Casarez MD Chloride [Moles/Vol] 90 mmol/L Low 101-111 [facility] Comment on above: Performed By: #### L 400.0152, L404.7200, L404.9400, L404.7250, L404.7300 #### Main Laboratory ([facility]) [address] [place] [address] Matt Casarez MD CO2 [Moles/Vol] 32 mmol/L Normal 21-32 [facility] Comment on above: Performed By: #### L 400.0152, L404.7200, L404.9400, L404.7250, L404.7300 #### Main Laboratory ([facility]) [address] [place] [address] Matt Casarez MD Creatinine [Mass/Vol] 0.71 mg/dL Normal 0.60-1.30 [facility] Comment on above: Performed By: #### L 400.0152, L404.7200, L404.9400, L404.7250, L404.7300 #### Main Laboratory ([facility]) [address] [place] [address] Matt Casarez MD GFR/1.73 sq M predicted among non-blacks MDRD (S/P/Bld) [Vol rate/Area] mL/min/{1.73_m2} Normal [facility] Comment on above: Result Comment: [facility] harvey Kidney Disease stages by NKDF Stage eGFR I >90 II 60-89 III 30-59 IV 15-29 V <15 or dialysis AGE(years) AVERAGE GFR 50-59 93 ml/min/1.73 square meters Note:This result is normalized to 1.73 square meter body surface area. Height and weight are not factored. Performed By: #### L 400.0152, L404.7200, L404.9400, L404.7250, L404.7300 #### Main Laboratory ([facility]) [address] [place] [address] Matt Casarez MD Glucose [Mass/Vol] 96 mg/dL Normal 70-110 [facility] Comment on above: Result Comment: *Thi s reference range applies to fasting specimens only. Performed By: #### L 400.0152, L404.7200, L404.9400, L404.7250, L404.7300 #### Main Laboratory ([facility]) [address] [place] [address] Matt Casarez MD Potassium [Moles/Vol] 4.6 mmol/L Normal 3.6-5.0 [facility] Comment on above: Performed By: #### L 400.0152, L404.7200, L404.9400, L404.7250, L404.7300 #### Main Laboratory ([facility]) [address] [place] [address] Matt Casarez MD Sodium [Moles/Vol] 126 mmol/L Low 135-145 [facility] Comment on above: Performed By: #### L 400.0152, L404.7200, L404.9400, L404.7250, L404.7300 #### Main Laboratory ([facility]) [address] [place] [address] Matt Casarez MD Urea nitrogen [Mass/Vol] 26 mg/dL High 7-20 [facility] Comment on above: Performed By: #### L 400.0152, L404.7200, L404.9400, L404.7250, L404.7300 #### Main Laboratory ([facility]) [address] [place] [address] Matt Casarez MD Blood Gas, ArterialOrdered B y: Bart Juárez on 03-10-2019 Cas Test N/A [facility] Work Phone: Base Excess, Arterial 5 mmol/L High -2 - 3 mmol/L [facility] Work Phone: DEVICE Trach Mask [facility] [employer] Work Phone: Drawn By Dalia Barakat [facility] Work Phone: FIO2 0.35 [employer] Phone: HCO3 (Bld) [Moles/Vol] 29.6 mmol/L High 22 - 26 mmol/L [employer] Phone: Interpretation and review of laboratory results Abnormal [employer] Phone: NOTIFICATION Yes [employer] Work Phone: Oxygen (Bld) [Partial pressure] 99 mm[Hg] [employer] Work Phone: Oxygen saturation in Blood 98 % 95 - 98 % [employer] Work Phone: PCO2 45 [employer] Work Phone: pH (Bld) 7.42 [pH] [employer] Phone: Site R Brachial [employer] Work Phone: Main Laboratory ([facility])[address] [place], [place] [phone] el Nivar, MDOrdering Provider: Bart Juárez [employer] Work Phone: Cortisol AM, TotalOrdered By : Bart Juárez on 03-10-2019 Cortisol - AM 2.1 Low [facility] Work Phone: Cortisol,Luis 03-10-2019 Cortisol,AM 2.1 mcg/dL Low 6.7-22.6 [facility] Comment on above: Performed By: #### L 400.0076, L430.6500 #### Main Laboratory ([facility]) [address] [place] [address] Matt Casarez MD Free T3on 03-10-2019 Free T3 [Mass/Vol] 2.34 pg/mL Low 2.80-4.40 [facility] Comment on above: Performed By: #### L 400.0076, L404.6500 #### Main Laboratory ([facility]) [address] [place] [address] Matt Casarez MD Free T4on 03-10-2019 Free T4 [Mass/Vol] 0.57 ng/dL Low 0.61-1.12 [place] [facility] Comment on above: Result Comment: Spec imens from patients who are undergoing biotin therapy and/or ingesting biotin supplements may produce significantly false high results for this assay. Results should be interpreted in light of the total clinical presentation of the patient, including symptoms, clinical history, and data from additional tests. Performed By: #### L 400.0076, L404.6500 #### Main Laboratory ([facility]) [address] [place] [address] Matt Casarez MD No Panel InformationOrdered By: Bart Juárez on 03-10-2019 Interpretation and review of laboratory results Abnormal [employer] Phone: Main Laboratory ([facility])[address], [place] [phone] el Nivar, MDOrdering Provider: Bart Juárez [employer] Phone: T3, FreeOrdered By: Bart Juárez on 03-10-2019 Free T3 [Mass/Vol] 2.34 pg/mL Low 2.8 - 4.4 pg/mL [employer] Phone: T4, FreeOrdered By: Bart Juárez on 03-10-2019 Free T4 [Mass/Vol] 0.57 ng/dL Low 0.61 - 1. 12 ng/dL [employer] Phone: Comment on above: Specimens from patie nts who are undergoing biotin therapy and/or ingesting biotin supplements may produce significantly false high results for this assay. Results should be interpreted in light of the total clinical presentation of the patient, including symptoms, clinical history, and data from additional tests. TSH without ReflexOrdered By : Bart Juárez on 03-10-2019 TSH Qn 6.899 m[IU]/L High [employer] [facility] Work Phone: Thyroid Stimulating Hormoneo n 03-10-2019 TSH Qn 6.899 mcIU/mL High 0.490-4.670 [facility] Comment on above: Performed By: #### L 400.0152, L404.7200, L404.9400, L404.7250, L404.7300 #### Main Laboratory ([facility]) [address] [place] [address] Matt Casarez MD CBC WITHOUT DIFFERENTIALOrde red By: Bart Juárez on 03-09-2019 Erythrocyte distribution width (RBC) [Ratio] 15.6 % 12 - 16 % [employer] Phone: Hematocrit (Bld) [Volume fraction] 30.9 % Low 40 - 49 % [employer] Phone: Hemoglobin (Bld) [Mass/Vol] 10.4 g/dL Low [employer] Phone: Interpretation and review of laboratory results Abnormal [employer] Phone: MCH (RBC) [Entitic mass] 31.9 pg 27.5 - 33 PG [facility] Phone: MCHC (RBC) [Mass/Vol] 33.8 g/dL [employer] Work Phone: MCV (RBC) [Entitic vol] 94.3 fL [employer] Phone: Platelets (Bld) [#/Vol] 270 10*3/uL [employer] Phone: RBC (Bld) [#/Vol] 3.28 10*6/uL Low [employer] Phone: WBC (Bld) [#/Vol] 6.1 10*3/uL [employer] Phone: Main Laboratory ([facility])[address], [place] [phone] el Nivar, MDOrdering Provider: aBrt Juárez [employer] Phone: CBC Without Differentialon 0 03-09-2019 Erythrocyte distribution width (RBC) [Ratio] 15.6 % Normal 12.0-16.0 [facility] Comment on above: Performed By: #### L 100.0050 #### Main Laboratory ([facility]) [address] [place] [id number] Matt Casarez MD Hematocrit (Bld) [Volume fraction] 30.9 % Low 40.0-49.0 [facility] Comment on above: Performed By: #### L 100.0050 #### Main Laboratory ([facility]) [address] [place] [address] Matt Casarez MD Hemoglobin (Bld) [Mass/Vol] 10.4 g/dL Low 13.5-16.5 [facility] Comment on above: Performed By: #### L 100.0050 #### Main Laboratory ([facility]) [address] [place] [address] Matt Casarez MD MCH (RBC) [Entitic mass] 31.9 pg Normal 27.5-33.0 [facility] Comment on above: Performed By: #### L 100.0050 #### Main Laboratory ([facility]) [address] [place] [id number] Matt Casarez MD MCHC (RBC) [Mass/Vol] 33.8 g/dL Normal 33.0-36.0 [facility] Comment on above: Performed By: #### L 100.0050 #### Main Laboratory ([facility]) [address] [place] [address] Matt Casarez MD MCV (RBC) [Entitic vol] 94.3 [facility] Normal 80-97 [facility] Comment on above: Performed By: #### L 100.0050 #### Main Laboratory ([facility]) [address] [place] [phone] Matt Casarez MD Platelets (Bld) [#/Vol] 270 th/cmm Normal 150-400 [facility] Comment on above: Performed By: #### L 100.0050 #### Main Laboratory ([facility]) [address] [place] [facility]04 Matt Casarez MD RBC (Bld) [#/Vol] 3.28 mil/cmm Low 4.50-6.00 [facility] Comment on above: Performed By: #### L 100.0050 #### Main Laboratory ([facility]) [address] [place] [address] Matt Casarez MD WBC (Bld) [#/Vol] 6.1 th/cmm Normal 4.4-10.5 [facility] Comment on above: Performed By: #### L 100.0050 #### Main Laboratory ([facility]) [address] [place] [address] Matt Casarez MD Comprehensive Metabolic Pane raymond 03-09-2019 Albumin [Mass/Vol] 3.3 g/dL Low 3.5-5.0 [facility] Comment on above: Performed By: #### L 400.0076, L400.4800 #### Main Laboratory ([facility]) [address] [place] [id number] Matt Casarez MD Albumin/Globulin [Mass ratio] 1.1 {ratio} Low 1.5-2.5 [facility] Comment on above: Performed By: #### L 400.0076, L400.4800 #### Main Laboratory ([facility]) [address] [place] [id number] Matt Casarez MD Alk Phos 49 IU/L Normal 41-137 [facility] Comment on above: Performed By: #### L 400.0076, L400.4800 #### Main Laboratory ([facility]) [address] [place] [id number] Matt Casarez MD ALT/SGPT 33 IU/L Normal 10-40 [facility] Comment on above: Performed By: #### L 400.0076, L400.4800 #### Main Laboratory ([facility]) [address] [place] [address] Matt Casarez MD Anion gap [Moles/Vol] 2 mmol/L Low 4-12 [facility] Comment on above: Performed By: #### L 400.0076, L400.4800 #### Main Laboratory ([facility]) [address] [place] [address] Matt Casarez MD AST/SGOT 25 IU/L Normal 15-41 [facility] Comment on above: Performed By: #### L 400.0076, L400.4800 #### Main Laboratory ([facility]) [address] [place], [facility]04 Matt Casarez MD Bili,Total 0.5 mg/dL Normal 0.2-1.0 [facility] Comment on above: Performed By: #### L 400.0076, L400.4800 #### Main Laboratory ([facility]) [address] [place] [address] Matt Casarez MD Calcium [Mass/Vol] 8.8 mg/dL Normal 8.8-10.5 [facility] Comment on above: Performed By: #### L 400.0076, L400.4800 #### Main Laboratory ([facility]) [address] [place] [address] Matt Casarez MD Chloride [Moles/Vol] 91 mmol/L Low 101-111 [facility] Comment on above: Performed By: #### L 400.0076, L400.4800 #### Main Laboratory ([facility]) [address] [place] [address] Matt Casarez MD CO2 [Moles/Vol] 35 mmol/L High 21-32 [facility] Comment on above: Performed By: #### L 400.0076, L400.4800 #### Main Laboratory ([facility]) [address] [place] [address] Matt Casarez MD Creatinine [Mass/Vol] 0.74 mg/dL Normal 0.60-1.30 [facility] Comment on above: Performed By: #### L 400.0076, L400.4800 #### Main Laboratory ([facility]) [address] [place] [address] Matt Casarez MD GFR/1.73 sq M predicted among non-blacks MDRD (S/P/Bld) [Vol rate/Area] mL/min/{1.73_m2} Normal [facility] Comment on above: Result Comment: [employer] Kidney Disease stages by NKDF Stage eGFR I >90 II 60-89 III 30-59 IV 15-29 V <15 or dialysis AGE(years) AVERAGE GFR 50-59 93 ml/min/1.73 square meters Note:This result is normalized to 1.73 square meter body surface area. Height and weight are not factored. Performed By: #### L 400.0076, L400.4800 #### Main Laboratory ([facility]) [address] [place] [address] Matt Casarez MD Glucose [Mass/Vol] 88 mg/dL Normal 70-110 [facility] Comment on above: Result Comment: *Thi s reference range applies to fasting specimens only. Performed By: #### L 400.0076, L400.4800 #### Main Laboratory ([facility]) [address] [place] [address] Matt Casarez MD Potassium [Moles/Vol] 4.2 mmol/L Normal 3.6-5.0 [facility] Comment on above: Performed By: #### L 400.0076, L400.4800 #### Main Laboratory ([facility]) [address] [place] [address] Matt Casarez MD Protein [Mass/Vol] 6.2 g/dL Normal 6.2-8.0 [facility] Comment on above: Performed By: #### L 400.0076, L400.4800 #### Main Laboratory ([facility]) [address] [place] [address] Matt Casarez MD Sodium [Moles/Vol] 128 mmol/L Low 135-145 [facility] Comment on above: Performed By: #### L 400.0076, L400.4800 #### Main Laboratory ([facility]) [address] [place] [address] Matt Casarez MD Urea nitrogen [Mass/Vol] 28 mg/dL High 7-20 [facility] Comment on above: Performed By: #### L 400.0076, L400.4800 #### Main Laboratory ([facility]) [address] [place] [address] Matt Casarez MD Comprehensive Metabolic Pane lOrdered By: Bart Juárez on 03-09-2019 Albumin [Mass/Vol] 3.3 g/dL Low [employer] Work Phone: Albumin/Globulin [Mass ratio] 1.1 {ratio} Low [facility] Work Phone: ALP [Catalytic activity/Vol] 49 U/L [facility] Phone: ALT [Catalytic activity/Vol] 33 U/L [facility] Work Phone: Anion gap [Moles/Vol] 2 mmol/L Low [facility] [employer] Work Phone: AST [Catalytic activity/Vol] 25 U/L [facility] [employer] Phone: Bilirubin [Mass/Vol] 0.5 mg/dL 0.2 - 1 mg/dL [facility] Work Phone: Calcium [Mass/Vol] 8.8 mg/dL 8.8 - 10. 5 mg/dL [facility] [employer] Phone: Chloride [Moles/Vol] 91 mmol/L Low [facility] [employer] Work Phone: CO2 [Moles/Vol] 35 mmol/L [facility] Work Phone: Creatinine [Mass/Vol] 0.74 mg/dL 0.6 - 1.3 mg/dL [facility] [employer] Phone: Creatinine Clearance >60 [facility] Phone: Comment on above: Chronic Kidney Disea se stages by NKDF Stage eGFR I >90 II 60-89 III 30-59 IV 15-29 V <15 or dialysis AGE(years) AVERAGE GFR 50-59 93 ml/min/1.73 square meters Note:This result is normalized to 1.73 square meter body surface area. Height and weight are not factored. Glucose [Mass/Vol] 88 mg/dL 70 - 110 mg/dL [facility] [employer] Phone: Comment on above: *This reference rang e applies to fasting specimens only. Interpretation and review of laboratory results Abnormal [facility] [employer] Phone: Potassium [Moles/Vol] 4.2 mmol/L [facility] [employer] Work Phone: Protein [Mass/Vol] 6.2 g/dL 6.2 - 8 g/dL [facility] [employer] Work Phone: Sodium [Moles/Vol] 128 mmol/L Low [facility] [employer] Phone: Urea nitrogen [Mass/Vol] 28 mg/dL High 7 - 20 mg/dL [facility] [employer] Phone: No Panel InformationOrdered By: Bart Juárez on 03-09-2019 Main Laboratory ([facility])[address] [phone] el Nivar, MDOrdering Provider: [facility] Jaron [facility] Work Phone: Main Laboratory ([facility])[address] [phone] el Nivar, MDOrdering Provider: [facility] Jaron [facility] Work Phone: Osmolality, Serumon 03-09-19 20 Osmolality, Serum 280 mOsm Normal 270-300 [facility] Comment on above: Performed By: #### L 400.0076, L400.2420 #### Main Laboratory ([facility]) [address] [place] [address] Matt Casarez MD Osmolality, SerumOrdered By: Bart Juárez on 03-09-2019 Serum Osmolality 280 [facility] Work Phone: Osmolality, UrineOrdered By: Bart Juárez on 03-09-2019 Osmolality, Ur 517 mOsm [facility] Work Phone: Comment on above: On average fluid int leanne: 300-900 mOsm/kg After 12-h fluid restriction: >850 mOsm/kg Osmolality, Urine Randomon 0 03-09-2019 Osmolality, Urine 517 mOsm Normal [facility] Comment on above: Result Comment: On a verage fluid intake: 300-900 mOsm/kg After 12-h fluid restriction: >850 mOsm/kg Performed By: #### L 400.4900, L500.2600 #### Main Laboratory ([facility]) [address] [place] [address] Matt Casarez MD Sodium, Random Urineon 03-09 Sodium (U) [Moles/Vol] 50.0 mmol/L Normal L [facility] Comment on above: Performed By: #### L 400.4900, L500.2600 #### Main Laboratory ([facility]) [address] [place] [address] Matt Casarez MD Sodium, urine, randomOrdered By: Bart Juárez on 03-09-2019 Sodium,Ur 50 mEq/L [employer] Work Phone: XR CHEST PORTABLEon 03-09-19 XR CHEST PORTABLE PROCEDURE: XR CHEST PORTABLE CLINICAL INFORMATION: sob. room 39. COMPARISON: No prior study. TECHNIQUE: AP Portable chest xray FINDINGS: Lines/tubes/devices: Tracheostomy tube tip lies at the thoracic inlet, 4.8 cm above the iwona in satisfactory position. Right jugular central venous catheter tip lies in the mid SVC region. Lungs/pleura: No pneumonia, pulmonary edema, or obvious mass. No pleural effusion. No pneumothorax. Heart: Heart size is normal. Mediastinum/nabeel: No obvious mass or adenopathy. Skeleton: No significant bone or joint abnormality. IMPRESSION: No acute cardiopulmonary disease. Satisfactory positions of the life support lines and tubes. This report has been created using voice recognition software. It may contain minor errors which are inherent in voice recognition technology. Final report electronically signed by Dr. Gilles Zelaya on 03/09/2019 3:06 AM Interpreted by: Gilles Zelaya MD Signed by: Gilles Zelaya MD 03/09/19 Final result Normal [facility] XR CHEST PORTABLEOrdered By: Bart Juárez on 03-09-2019 No acute cardiopulmonary disease. Satisfactory positions of the life support lines and tubes. This report has been created using voice recognition software. It may contain minor errors which are inherent in voice recognition technology. Final report electronically signed by Dr. Gilles Zelaya on 03/09/2019 3:06 AM [employer] Work Phone: CBCOrdered By: Bart pickering on 03-08-2019 Absolute Baso # 100 [facility] Work Phone: Absolute Eos # 100 [facility] Work Phone: Absolute Lymph # 2800 [facility] Work Phone: Absolute Glacier # 400 [facility] Work Phone: Absolute Neut # 3300 [facility] Work Phone: Basophils/100 WBC (Bld) 1.0 % 0 - 2 % [employer] Work Phone: Eosinophils/100 WBC (Bld) 1.9 % 0 - 6 % [facility] [employer] Work Phone: Erythrocyte distribution width (RBC) [Ratio] 15.2 % 12 - 16 % [facility] Work Phone: Hematocrit (Bld) [Volume fraction] 31.2 % Low 40 - 49 % [facility] Phone: Hemoglobin (Bld) [Mass/Vol] 10.5 g/dL Low [employer] Work Phone: Interpretation and review of laboratory results Abnormal [facility] Phone: Lymphocytes/100 WBC (Bld) 42.0 % 15 - 45 % [facility] [employer] Work Phone: MCH (RBC) [Entitic mass] 31.7 pg 27.5 - 33 PG [facility] [employer] Work Phone: MCHC (RBC) [Mass/Vol] 33.7 g/dL [facility] [employer] Work Phone: MCV (RBC) [Entitic vol] 94.0 fL [facility] [employer] Phone: Monocytes/100 WBC (Bld) 6.6 % 2 - 10 % [facility] Work Phone: Neutrophils/100 WBC (Bld) 48.5 % 40 - 70 % [facility] [employer] Work Phone: Nucleated RBC (Bld) [#/Vol] 0.1 10*3/uL <1 /100 W[facility] [employer] Work Phone: Platelets (Bld) [#/Vol] 282 10*3/uL [facility] Phone: RBC (Bld) [#/Vol] 3.32 10*6/uL Low [employer] Work Phone: WBC (Bld) [#/Vol] 6.7 10*3/uL [facility] Work Phone: Main Laboratory ([facility])[address] [phone] el Nivar, MDOrdering Provider: Bart Juárez [facility] Work Phone: CBC with Differentialon 01-0 8-2020 Abs Baso Count 100 /cmm Normal 0-200 [facility] Comment on above: Performed By: #### L 100.0000 #### Main Laboratory ([facility]) [address] [place], [place] [address] Matt Casarez MD Abs Eos Count 100 /cmm Normal 0-500 [facility] Comment on above: Performed By: #### L 100.0000 #### Main Laboratory ([facility]) [address] [place], [place] [address] Matt Casarez MD Abs Glacier Count 400 /cmm Normal 0-800 [facility] Comment on above: Performed By: #### L 100.0000 #### Main Laboratory ([facility]) [address] [place], [place] [address] Matt Casarez MD Abs Neut Count 3300 /cmm Normal 2467-4096 [facility] Comment on above: Performed By: #### L 100.0000 #### Main Laboratory ([facility]) [address] [place], [place] [address] Matt Casarez MD Basophils/100 WBC (Bld) 1.0 % Normal 0-2 [facility] Comment on above: Performed By: #### L 100.0000 #### Main Laboratory ([facility]) [address] [place], [place] [address] Matt Casarez MD EOS-Auto Diff 1.9 % Normal 0-6 [facility] Comment on above: Performed By: #### L 100.0000 #### Main Laboratory ([facility]) [address] [place] [address] Matt Casarez MD Erythrocyte distribution width (RBC) [Ratio] 15.2 % Normal 12.0-16.0 [facility] Comment on above: Performed By: #### L 100.0000 #### Main Laboratory ([facility]) [address] [place], [place] [address] Matt Casarez MD Hematocrit (Bld) [Volume fraction] 31.2 % Low 40.0-49.0 [facility] Comment on above: Performed By: #### L 100.0000 #### Main Laboratory ([facility]) [address] [place] [address] Matt Casarez MD Hemoglobin (Bld) [Mass/Vol] 10.5 g/dL Low 13.5-16.5 [facility] Comment on above: Performed By: #### L 100.0000 #### Main Laboratory ([facility]) [address] [place] [address] Matt Casarez MD Lymphocytes (Bld) [#/Vol] 2800 /cmm Normal 0085-6086 [facility] Comment on above: Performed By: #### L 100.0000 #### Main Laboratory ([facility]) [address] [place] [address] Matt Casarez MD Lymphocytes/100 WBC (Bld) 42.0 % Normal 15-45 [facility] Comment on above: Performed By: #### L 100.0000 #### Main Laboratory ([facility]) [address] [place] [address] Matt Casarez MD MCH (RBC) [Entitic mass] 31.7 pg Normal 27.5-33.0 [facility] Comment on above: Performed By: #### L 100.0000 #### Main Laboratory ([facility]) [address] [place] [address] Matt Casarez MD MCHC (RBC) [Mass/Vol] 33.7 g/dL Normal 33.0-36.0 [facility] Comment on above: Performed By: #### L 100.0000 #### Main Laboratory ([facility]) [address] [place] [address] Matt Casarez MD MCV (RBC) [Entitic vol] 94.0 [facility] Normal 80-97 [facility] Comment on above: Performed By: #### L 100.0000 #### Main Laboratory ([facility]) [address] [place], [place] [address] Matt Casarez MD Glacier- Auto Diff 6.6 % Normal 2-10 [facility] Comment on above: Performed By: #### L 100.0000 #### Main Laboratory ([facility]) [address] [place] [address] Matt Casarez MD Neut-Auto Diff 48.5 % Normal 40-70 [facility] Comment on above: Performed By: #### L 100.0000 #### Main Laboratory ([facility]) [address] [place] [address] Matt Casarez MD NRBC-Auto 0.1 /100 WBC Normal <1 [facility] Comment on above: Performed By: #### L 100.0000 #### Main Laboratory ([facility]) [address] [place], [place] [address] Matt Casarez MD Platelets (Bld) [#/Vol] 282 th/cmm Normal 150-400 [facility] Comment on above: Performed By: #### L 100.0000 #### Main Laboratory ([facility]) [address] [place], [place] [address] Matt Casarez MD RBC (Bld) [#/Vol] 3.32 mil/cmm Low 4.50-6.00 [facility] Comment on above: Performed By: #### L 100.0000 #### Main Laboratory ([facility]) [address] [place], [place] [address] Matt Casarez MD WBC (Bld) [#/Vol] 6.7 th/cmm Normal 4.4-10.5 [facility] Comment on above: Performed By: #### L 100.0000 #### Main Laboratory ([facility]) [address] [place], [place] [address] Matt Casarez MD Comprehensive Metabolic Pane [facility] 03-08-2019 Albumin [Mass/Vol] 3.4 g/dL Low 3.5-5.0 [facility] Comment on above: Performed By: #### L 400.0076, L404.6500 #### Main Laboratory ([facility]) [address] [place], [place] [address] Matt Casarez MD Albumin/Globulin [Mass ratio] 1.2 {ratio} Low 1.5-2.5 [facility] Comment on above: Performed By: #### L 400.0076, L404.6500 #### Main Laboratory ([facility]) [address] [place], [place] [address] Matt Casarez MD Alk Phos 49 IU/L Normal 41-137 [facility] Comment on above: Performed By: #### L 400.0076, L404.6500 #### Main Laboratory ([facility]) [address] [place], [place] [address] Matt Casarez MD ALT/SGPT 31 IU/L Normal 10-40 [facility] Comment on above: Performed By: #### L 400.0076, L404.6500 #### Main Laboratory ([facility]) [address] [place], [place] [address] Matt Casarez MD Anion gap [Moles/Vol] 4 mmol/L Normal 4-12 [facility] Comment on above: Performed By: #### L 400.0076, L404.6500 #### Main Laboratory ([facility]) [address] [place] [address] Matt Casarez MD AST/SGOT 25 IU/L Normal 15-41 [facility] Comment on above: Performed By: #### L 400.0076, L404.6500 #### Main Laboratory ([facility]) [address] [place], [facility]04 Matt Casarez MD Bili,Total 0.6 mg/dL Normal 0.2-1.0 [facility] Comment on above: Performed By: #### L 400.0076, L404.6500 #### Main Laboratory ([facility]) [address] [place], [facility] Matt Casarez MD Calcium [Mass/Vol] 9.00 mg/dL Normal 8.8-10.5 [facility] Comment on above: Performed By: #### L 400.0076, L404.6500 #### Main Laboratory ([facility]) [address] [place] [address] Matt Casarez MD Chloride [Moles/Vol] 93 mmol/L Low 101-111 [facility] Comment on above: Performed By: #### L 400.0076, L404.6500 #### Main Laboratory ([facility]) [address] [place] [address] Matt Casarez MD CO2 [Moles/Vol] 32 mmol/L Normal 21-32 [facility] Comment on above: Performed By: #### L 400.0076, L404.6500 #### Main Laboratory ([facility]) [address] [place] [address] Matt Casarez MD Creatinine [Mass/Vol] 0.58 mg/dL Low 0.60-1.30 [facility] Comment on above: Performed By: #### L 400.0076, L404.6500 #### Main Laboratory ([facility]) [address] 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 Height and weight are not factored. Performed By: #### L 400.0076, L404.6500 #### Main Laboratory ([facility]) [address] [place] [address] Matt Casarez MD Glucose [Mass/Vol] 95 mg/dL Normal 70-110 [facility] Comment on above: Result Comment: *Thi s reference range applies to fasting specimens only. Performed By: #### L 400.0076, L404.6500 #### Main Laboratory ([facility]) [address] [place] [address] Matt Casarez MD Potassium [Moles/Vol] 3.8 mmol/L Normal 3.6-5.0 [facility] Comment on above: Performed By: #### L 400.0076, L404.6500 #### Main Laboratory ([facility]) [address] [place] [address] Matt Casarez MD Protein [Mass/Vol] 6.2 g/dL Normal 6.2-8.0 [facility] Comment on above: Performed By: #### L 400.0076, L404.6500 #### Main Laboratory ([facility]) [address] [place] [address] Matt Casarez MD Sodium [Moles/Vol] 129 mmol/L Low 135-145 [place] [facility] Comment on above: Performed By: #### L 400.0076, L404.6500 #### Main Laboratory ([facility]) [address] [place] [address] Matt Casarez MD Urea nitrogen [Mass/Vol] 21 mg/dL High 7-20 [facility] Comment on above: Performed By: #### L 400.0076, L404.6500 #### Main Laboratory ([facility]) [address] [place] [address] Matt Casarez MD Comprehensive Metabolic Pane lOrdered By: Bart Juárez on 03-08-2019 Albumin [Mass/Vol] 3.4 g/dL Low [facility] Work Phone: Albumin/Globulin [Mass ratio] 1.2 {ratio} Low [facility] Work Phone: ALP [Catalytic activity/Vol] 49 U/L [facility] Work Phone: ALT [Catalytic activity/Vol] 31 U/L [facility] Work Phone: Anion gap [Moles/Vol] 4 mmol/L [facility] Work Phone: AST [Catalytic activity/Vol] 25 U/L [facility] Work Phone: Bilirubin [Mass/Vol] 0.6 mg/dL 0.2 - 1 mg/dL [facility] Work Phone: Calcium [Mass/Vol] 9.00 mg/dL 8.8 - 10. 5 mg/dL [facility] Work Phone: Chloride [Moles/Vol] 93 mmol/L Low [facility] Work Phone: CO2 [Moles/Vol] 32 mmol/L [facility] Work Phone: Creatinine [Mass/Vol] 0.58 mg/dL Low 0.6 - 1.3 mg/dL [employer] Phone: Creatinine Clearance >60 [facility] Phone: Comment on above: Chronic Kidney Disea se stages by NKDF Stage eGFR I >90 II 60-89 III 30-59 IV 15-29 V <15 or dialysis AGE(years) AVERAGE GFR 50-59 93 ml/min/1.73 square meters Note:This result is normalized to 1.73 square meter body surface area. Height and weight are not factored. Glucose [Mass/Vol] 95 mg/dL 70 - 110 mg/dL [facility] Comment on above: *This reference rang e applies to fasting specimens only. Interpretation and review of laboratory results Abnormal [facility]: Potassium [Moles/Vol] 3.8 mmol/L [facility] [employer] Phone: Protein [Mass/Vol] 6.2 g/dL 6.2 - 8 g/dL [facility] Phone: Sodium [Moles/Vol] 129 mmol/L [facility]: Urea nitrogen [Mass/Vol] 21 mg/dL High 7 - 20 mg/dL [facility]: No Panel InformationOrdered By: Bart Juárez on 03-08-2019 Main Laboratory ([facility])[address] [place] [phone] el Nivar, MDOrdering Provider: Bart Juárez [employer] Phone: Prealbuminon 03-08-2019 Prealbumin [Mass/Vol] 20.0 mg/dL Normal 16.0-38.0 [facility] Comment on above: Performed By: #### L 400.0076, L404.6500 #### Main Laboratory ([facility]) [address] [address] Matt Casarez MD PrealbuminOrdered By: Jesse Tovar on 03-08-2019 Prealbumin [Mass/Vol] 20.0 mg/dL 16 - 3 8 mg/dL [employer] Phone: Encounters Encounter Date Encounter Type Care Provider Facility Start: 11-03-2023 End: 11-03-2023 ambulatory TONY ROPER Not Available Start: 10-20-2023 End: 10-20-2023 ambulatory SUAD PRATT [facility] Start: 08-05-2023 End: 08-07-2023 Emergency department patient visit KIMBERLYN FANG [facility] Start: 08-05-2023 End: 08-06-2023 ambulatory [facility] Start: 06-15-2023 End: 06-15-2023 ambulatory [facility] Start: 06-04-2023 End: 06-04-2023 ambulatory EHAD [facility] Start: 04-19-2023 End: 04-19-2023 ambulatory [facility] Start: 04-19-2023 Telephone encounter Amara Mena CMA [facility] Start: 04-15-2023 End: 04-15-2023 Patient encounter procedure [facility] Comment on above: No-show for appointm ent (Primary Dx) Start: 04-09-2023 End: 04-09-2023 ambulatory [facility] Start: 03-31-2023 End: 03-31-2023 ambulatory [facility] Start: 03-29-2023 Jamilah Sarmiento [facility] Comment on above: Partial symptomatic epilepsy with complex partial seizures, not intractable, without status epilepticus ([facility]) Start: 03-20-2023 End: 03-20-2023 ambulatory [facility] Start: 03-06-2023 End: 03-09-2023 Evaluation and management of inpatient MOHAN MOSER [facility] Start: 03-05-2023 End: 03-09-2023 Emergency department patient visit BOY FOLEY [facility] Start: 03-05-2023 End: 03-08-2023 Evaluation and management of inpatient INGRID RAMIREZ [facility] Start: 01-18-2023 End: 01-18-2023 ambulatory NADEEM MILLS Not Available Start: 01-24-2021 End: 01-24-2021 ambulatory Opal Amin Other [employer] Other Start: 01-24-2021 Office outpatient visit 5 minutes Opal Amin [facility] Start: 04-05-2020 End: 04-06-2020 Patient encounter procedure LEVY BENITEZ Facility: Start: 03-08-2019 End: 03-28-2019 Patient encounter procedure BART JUÁREZ [facility] Start: 03-07-2019 End: 03-28-2019 Subsequent hospital visit by physician Bart Juárez MD Work Phone: [facility] SIVAN Procedures Date Procedure Procedure Detail Performing Clinician Start: 06-04-2023 Follow-up visit Follow-up EHAD AF REEN Start: 02-10-2023 Adult depression scr eening assessment Mitra Sarmiento CMA Start: 03-27-2019 Hepatitis b core ant ibody hbcab total BART JUÁREZ Start: 03-27-2019 CBC panel - Blood by Automated count Bart Juárez MD Work Phone: Start: 03-27-2019 Comprehensive metabolic panel BART JUÁREZ Start: 03-27-2019 Comprehensive metabolic panel Bart Juárez MD Work Phone: Start: 03-25-2019 Cortisol total BART JUÁREZ Start: 03-25-2019 CORTISOL AM, TOTAL Jasperi jaya Juárez MD Work Phone: Start: 03-25-2019 Assay of free thyroxine BART PALGAM Start: 03-25-2019 Basic metabolic pane l calcium total BART PALGAM Start: 03-25-2019 Basic metabolic pane l calcium total Bart Juárez MD Work Phone: Start: 03-24-2019 Basic metabolic pane l calcium total Bart Juárez MD Work Phone: Start: 03-23-2019 Assay of magnesium SASI JAYA MARQUITA Start: 03-23-2019 Comprehensive metabolic panel SASAUDRA PALGAM Start: 03-23-2019 Hepatitis b core ant ibody hbcab total JASPERIKALA MARQUITA Start: 03-23-2019 CBC panel - Blood by Automated count Bart Juárez MD Work Phone: Start: 03-23-2019 Comprehensive metabolic panel Bart Juárez MD Work Phone: Start: 03-22-2019 Basic metabolic pane l calcium total BART PALGAM Start: 03-22-2019 Basic metabolic pane l calcium total Bart Juárez MD Work Phone: Start: 03-20-2019 Swallowing funcj w/cineradiograpy/vidradiog Bart Juárez MD Work Phone: Start: 03-20-2019 Comprehensive metabolic panel BART PALGAM Start: 03-20-2019 Hepatitis b core ant ibody hbcab total JASPERIKALA MARQUITA Start: 03-20-2019 Comprehensive metabolic panel Bart Juárez MD Work Phone: Start: 03-20-2019 CBC panel - Blood by Automated count Bart Juárez MD Work Phone: Start: 03-18-2019 Assay of free thyroxine JASPERIKALA MARQUITA Start: 03-18-2019 Basic metabolic pane l calcium total SASIKALA MARQUITA Start: 03-18-2019 Cortisol total SASIKALA MARQUITA Start: 03-18-2019 Basic metabolic pane l calcium total Bart Juárez MD Work Phone: Start: 03-18-2019 CORTISOL AM, TOTAL Thad Juárez MD Work Phone: Start: 03-17-2019 Blood gases any comb ination ph pco2 po2 co2 hco3 SASIKALA MARQUITA Start: 03-17-2019 BLOOD GAS, ARTERIAL Jasper Juárez MD Work Phone: Start: 03-17-2019 Hepatitis b core ant ibody hbcab total SASKAYLALA MARQUITA Start: 03-16-2019 CBC panel - Blood by Automated count Bart Juárez MD Work Phone: Start: 03-16-2019 Assay of magnesium SASI JAYA MARQUITA Start: 03-16-2019 Comprehensive metabolic panel BART LEHMANM Start: 03-16-2019 Comprehensive metabolic panel Bart Juárez MD Work Phone: Start: 03-15-2019 Assay of blood/uric acid SASIKALA MARQUITA Start: 03-15-2019 Assay of magnesium SASI JAYA MARQUITA Start: 03-15-2019 Assay of phosphorus inorganic SASIKALA MARQUITA Start: 03-15-2019 Basic metabolic pane l calcium total SASKAYLALA MARQUITA Start: 03-15-2019 Basic metabolic pane l calcium total Bart Juárez MD Work Phone: Start: 03-14-2019 Blood gases any comb ination ph pco2 po2 co2 hco3 SASIKALA MARQUITA Start: 03-14-2019 Hepatitis b core ant ibody hbcab total JASPERIKALA MARQUITA Start: 03-14-2019 BLOOD GAS, ARTERIAL Jasper Juárez MD Work Phone: Start: 03-14-2019 CBC panel - Blood by Automated count Bart Juárez MD Work Phone: Start: 03-13-2019 Comprehensive metabolic panel BART JUÁREZ Start: 03-13-2019 Comprehensive metabolic panel Bart Juárez MD Work Phone: Start: 03-11-2019 Cortisol total BART JUÁREZ Start: 03-11-2019 CORTISOL AM, TOTAL Thad Juárez MD Work Phone: Start: 03-11-2019 Cortisol total BART JUÁREZ Start: 03-11-2019 End: 03-11-2019 CORTISOL AM, KYLE Juárez MD Work Phone: Start: 03-11-2019 Assay of blood/uric acid Bart Juárez MD Work Phone: Start: 03-11-2019 Assay of magnesium Thad Juárez MD Work Phone: Start: 03-11-2019 Assay of phosphorus inorganic Bart Juárez MD Work Phone: Start: 03-11-2019 Basic metabolic pane l calcium kyle Juárez MD Work Phone: Start: 03-10-2019 Blood gases any comb ination ph pco2 po2 co2 hco3 BART JUÁREZ Start: 03-10-2019 BLOOD GAS, ARTERIAL Jasper Juárez MD Work Phone: Start: 03-10-2019 Cortisol total BART JUÁREZ Start: 03-10-2019 Assay of free thyroxine Bart Juárez MD Work Phone: Start: 03-10-2019 Assay of thyroid sti mulating hormone tsh Bart Juárez MD Work Phone: Start: 03-10-2019 Assay of triiodothyr onine t3 free Bart Juárez MD Work Phone: Start: 03-10-2019 Basic metabolic pane l calcium kyle Juárez MD Work Phone: Start: 03-10-2019 CORTISOL AM, KYLE Juárez MD Work Phone: Start: 03-09-2019 Assay of osmolality urine BART JUÁREZ Start: 03-09-2019 Assay of urine sodium S CLARI JUÁREZ Start: 03-09-2019 Assay of osmolality blood BART LEHMANM Start: 03-09-2019 Comprehensive metabolic panel JASPERAUDRA MARQUITA Start: 03-09-2019 Hepatitis b core ant ibody hbcab total BART LEHMANM Start: 03-09-2019 End: 03-09-2019 Comprehensive metabolic panel Bart Juárez MD Work Phone: Start: 03-09-2019 CBC panel - Blood by Automated count Bart Juárez MD Work Phone: Start: 03-09-2019 Radiologic exam ches t single view BART JUÁREZ Start: 03-09-2019 Radiologic exam ches t single view Bart Juárez MD Work Phone: Start: 03-08-2019 Blood count complete automated Bart Juárez MD Work Phone: Start: 03-08-2019 Comprehensive metabolic panel Bart Juárez MD Work Phone: Start: 03-08-2019 Prealbumin Bart Juárez MD Work Phone: Plan of Treatment Date Care Activity Detail Author Start: 12-13-2031 DTaP,Tdap and Td Vaccines (7 - Td or Tdap) DTaP,Tdap and Td Vaccines (7 - Td or Tdap) [facility] Start: 03-08-2024 Adult [facility]ening [facility] Start: 03-05-2024 Tobacco Screening [facility] Start: 02-11-2024 Depression Screening [facility] Start: 11-19-2023 Adult BMI Follow Up Plan Adult BMI Follow Up Plan [facility] Start: 06-24-2023 End: 06-24-2023 Patient encounter procedure 06/24/2023 8:00 AM EDT Office Visit [facility] [address] [place] [id number] Cas Pérez MD [address] [place] [phone] [facility] Start: 06-04-2023 End: 06-04-2023 Patient encounter procedure 06/04/2023 8:30 AM EDT Office Visit [facility] [address] [facility] [place] [address] Catalino Chandler MD [address] [place] [address], [address] [place] [address] [facility] Start: 10-30-2022 COVID-19 Vaccine ( season) [facility] Start: 03-08-2019 Annual Wellness Visit (AWV) Annual Wellness Visit (AWV) [employer] Phone: Start: 10-30-2018 Influenza vaccination Flu vaccine (#1) [employer] Phone: Start: 09-06-2015 Colon cancer screen colonoscopy Colon cancer screen colonoscopy [employer] Phone: Start: 09-06-2015 Shingles Vaccine (1 of 2) Shingles Vaccine (1 of 2) [employer] Phone: Start: 2005 Lipid screen Lipid screen [employer] Phone: Start: 1980 HIV screen HIV screen [employer] Phone: Start: 1976 DTaP/Tdap/Td vaccine (1 - Tdap) DTaP/Tdap/Td vaccine (1 - Tdap) [employer] Phone: Immunizations Immunization Date Immunization Notes Care Provider Fa cili 12-16-2021 influenza, injectabl e, quadrivalent, preservative free Mitra Sarmiento [facility] [employer] 12-12-2021 tetanus toxoid, redu miky diphtheria toxoid, and acellular pertussis vaccine, adsorbed Mitra Sarmiento [facility] 06-05-2021 zoster vaccine recombinant Mitra Sarmiento [facility] 12-24-2020 Seasonal, quadrivale nt, recombinant, injectable influenza vaccine, preservative free Mitra Sarmiento [facility] 11-14-2020 zoster vaccine recombinant Mitra Sarmiento [facility] 12-12-2019 influenza, injectabl e, quadrivalent, preservative free Mitra Sarmiento [facility] 12-03-2019 influenza, injectabl e, quadrivalent, preservative free Mitra Sarmiento [facility] 12-07-2018 Seasonal, quadrivale nt, recombinant, injectable influenza vaccine, preservative free Mitra Sarmiento [facility] 11-12-2017 influenza, injectabl e, quadrivalent, contains preservative Mitra Sarmiento [facility] 12-15-2016 influenza, injectabl e, quadrivalent, preservative free Mitra Sarmiento [facility] 12-03-2015 influenza, injectabl e, quadrivalent, preservative free Mitra Sarmiento [facility] 12-03-2015 pneumococcal conjuga te vaccine, 13 valent Mitra Sarmiento [facility] 12-21-2014 influenza, seasonal, injectable, preservative free Mitra Sarmiento [facility] 12-21-2014 pneumococcal polysaccharide vaccine, 23 valent Mirta Sarmiento [facility] 01-08-2014 influenza, seasonal, injectable, preservative free Mitra Sarmiento [facility] 01-08-2014 tetanus toxoid, redu miky diphtheria toxoid, and acellular pertussis vaccine, adsorbed Mitra Sarmiento [facility] 12-20-2012 influenza, seasonal, injectable, preservative free Mitra Sarmiento [facility] 11-24-2011 influenza, seasonal, injectable, preservative free Mitra Sarmiento [facility] 01-26-2011 influenza virus vacc ine, whole virus Mitra Sarmiento [facility] 10-09-2008 tetanus toxoid, adsorbed Camila Sarmiento [facility] 12-26-1974 diphtheria, tetanus toxoids and acellular pertussis vaccine, unspecified formulation Mitra Sarmiento [facility] 12-26-1974 poliovirus vaccine, unspecified formulation Mitra Sarmiento [facility] 05-20-1967 diphtheria, tetanus toxoids and acellular pertussis vaccine, unspecified formulation Mitra Sarmiento [facility] 05-20-1967 poliovirus vaccine, unspecified formulation Mitra Sarmiento [facility] 04-15-1967 diphtheria, tetanus toxoids and acellular pertussis vaccine, unspecified formulation Mitra Sarmiento [facility] 03-18-1967 diphtheria, tetanus toxoids and acellular pertussis vaccine, unspecified formulation Mitra Sarmiento [facility] 03-18-1967 poliovirus vaccine, unspecified formulation Mitra Sarmiento [facility] Payers Date Payer Category Payer Unknown [id number] 2019 Unknown [employer] SIVAN xxxxxxxxx 2019-Present Indemnity xxxxxxxxx [id number] 2016 Medicaid [place] [id number] 2016-Present [phone] [address] [place] [address] [id number] 1985 Medicare MEDICARE MEDICAR E PART A & B [id number] 1985-Present [phone] [address] [place] [address] [id number] 1965 Unknown [id number] [id number] 1965 Unknown [id number] [id number]3 1965 Unknown [id number] 2.16.840.1.888895.3.579.2.1285 1965 Unknown [id number] 2.16.840.1.134150.3.579.2.1285 1965 Unknown [id number] 2.16.840.1.774570.3.579.2.1285 1965 Unknown [id number] 2.16.840.1.850073.3.579.2.1285 1965 Unknown [id number] 2.16.840.1.749550.3.579.2.1285 1965 Unknown [id number] 2.16.840.1.989825.3.579.2.1285 1965 Unknown [id number] 2.16.840.1.436212.3.579.2.1285 1965 Unknown [id number] 2.16840.1.196435.3.579.2.1285 1965 Unknown [id number] 2.16840.1.009954.3.579.2.1285 1965 Unknown [id number] 2.16840.1.943191.3.579.2.1285 1965 Unknown [id number] 2.16.840.1.313279.3.579.2.1285 1965 Unknown [id number] 2.16.840.1.118705.3.579.2.1285 1965 Unknown [id number] 2.16840.1.158925.3.579.2.1285 1965 Unknown [id number] 2.16.840.1.122863.3.579.2.1285 1965 Unknown [id number] 2.16.840.1.317202.3.579.2.1258 1965 Unknown [id number] 2.16.840.1.738258.3.579.2.1258 1965 Unknown [id number] 2.16.840.1.608666.3.579.2.1259 1965 Unknown [id number] 2.16.840.1.769605.3.579.2.1259 1959 Medicaid [id number] 1959 Medicare [id number] Social History Date Type Detail Facility Tobacco smoking stat [facility] Unknown if ever smoked [employer] Phone: Start: 1965 Sex Assigned At Not on file [employer] Phone: Start: 03-14-2020 End: 09-10-2022 Sex Assigned At [facility] Other Start: 01-13-2022 Tobacco smoking stat [facility] Never smoked tobacco [facility] Start: 01-13-2022 Tobacco use and exposure Smokeless tobacco non-user [facility] Start: 03-05-2023 Alcohol intake Current non-dr blanket cutter hand of alcohol (finding) [facility] Start: 03-14-2020 End: 09-10-2022 History of Social function [facility] How often to you hav e a drink containing alcohol? Never [facility] How many standard drinks containing alcohol do you have on a typical day? Patient does not drink [facility] Medical Equipment Procedure Code Equipment Code Equipment Origin al Text Equipment Identifier Dates Gft Sft Tis Dram trx+ 4x5 [place] Rpl [id number] + [id number] - [id number] - [id number] Start: 02-05-2019 Cvr Lw Prof Ramin Hole 10mm - Sn/A - [id number] Start: 02-05-2019 Plt Lw Pf Extra Rig 2-Hl 12mm - Sn/A - [id number] Start: 02-05-2019 Scr Cmf Slfdrl C ross Pin 1.5x4 - Sn/A - [id number] Start: 02-05-2019 Goals Date Patient Goal Desired Activity /State Personal health goal Comment on above: Formatting of this n ote might be different from the original. Evaluation of progress towards goal: per pt's nieces, they are looking at DC to [facility], and eventually home Personal health goal Comment on above: Formatting of this n ote might be different from the original. Evaluation of progress towards goal: to discharge to home with 24/7 caregivers Clinical Notes 03-09-2019 to 04-19-2023 Telephone Encounter - Amara Mena CMA - 04/19/2023 4:35 PM ESTTelephone Encounter - Whit Macario LPN - 04/19/2023 4:35 PM ESTTelephone Encounter - Amara Mena CMA - 04/19/2023 4:35 PM EST Note Date & Type Note Facility 04-19-2023 Miscellaneous Notes Formattin g of this note might be different from the original. Patient home care music therapist Mery is calling in informing us that patient has completed current orders for patient BMP to monitor sodium, she is asking if we can advise if this is still necessary and to reorder Spoke with home care music therapist and informed her that all labs that were ordered have been completed since discharge from hospital and next appt is on 06/24/2023 @ 8:00am documented in this encounter [facility] 04-19-2023 Telephone encount er Note Patient home care music therapist Mery is calling in informing us that patient has completed current orders for patient BMP to monitor sodium, she is asking if we can advise if this is still necessary and to reorder [facility] 04-19-2023 Telephone encount er Note Spoke with home care music therapist and informed her that all labs that were ordered have been completed since discharge from hospital and next appt is on 06/24/2023 @ 8:00am [facility] 04-15-2023 History of Presen t illness Narrative Patient called stating that they would not be able to show for the appointment. NATHAN Nixon 04/15/[id number] documented in this encounter [facility] 03-29-2023 Miscellaneous Notes Formattin g of this note might be different from the original. Images from the original note were not included. Pt is requesting the following prescription: Rx: LAMOTRIGINE 100 MG TABLET SIG: Take 2 tablets by mouth in the morning and 2 before bedtime Last apt: 02/10/2023 Next apt: 06/04/2023 Last fill date: 02/21/2023 documented in this encounter [facility] 03-29-2023 Telephone encount er Note Images from the original note were not included. Pt is requesting the following prescription: Rx: LAMOTRIGINE 100 MG TABLET SIG: Take 2 tablets by mouth in the morning and 2 before bedtime Last apt: 02/10/2023 Next apt: 06/04/2023 Last fill date: 02/21/2023 [facility] 03-05-2023 Note XR CHEST 1 VW History: Fatigue Procedure: Chest AP portable upright Comparison: 09/13/2022 Findings: The heart and lungs show no acute findings, and the mediastinum and nabeel are grossly negative . No pneumothorax. Impression: No acute pulmonary process. Finalized by Marlin Navarrete MD on 03/05/2023 9:29 PM [facility] 01-24-2021 Evaluation note Encounter Date Diagnosis Assessment Notes Dec, Encounter for screening for other viral diseases (ICD-10 - Z11.59) Dec, Other Additional time spent conducting pre-visit phone call, screening for symptoms, instructions on social distancing, application and removal of PPE, and cleaning of examination room, equipment and supplies was preformed. Patient education given for testing methodology and results. Patient care instructions given in writting by [facility] document. [employer] Other 01-20-2020 NotePROCEDURE: FL MODIFIED BARIUM SWALLOW W VIDEO CLINICAL INFORMATION: dysphagia . COMPARISON: No prior study. TECHNIQUE: Modified barium swallow was performed by speech therapy in the radiology Department. The patient was administered barium of various consistencies. A radiologist was available for the entire exam. Images: 8 Fluoroscopy time: 58 seconds FINDINGS: There was laryngeal penetration with thin liquids. There was no aspiration. No aspiration or laryngeal penetration with the other tested consistencies.[employer] Phone: [phone] 384-257701-20-2020 [facility]ron[facility] Incoming Radiant Results From [employer] - 03/20/2019 10:02 AM EST PROCEDURE: FL MODIFIED BARIUM SWALLOW W VIDEO CLINICAL INFORMATION: dysphagia . COMPARISON: No prior study. TECHNIQUE: Modified barium swallow was performed by speech therapy in the radiology Department. The patient was administered barium of various consistencies. A radiologist was available for the entire exam. Images: 8 Fluoroscopy time: 58 seconds FINDINGS: There was laryngeal penetration with thin liquids. There was no aspiration. No aspiration or laryngeal penetration with the other tested consistencies. IMPRESSION: Laryngeal penetration with thin liquids. Recommendations additional comments from speech therapy tofollow This report has been created using voice recognition software. It may contain minor errors which are inherent in voice recognition technology. Final report electronically signed by Dr. Christopher Lambert on 03/20/2019 10:00 [employer] Phone: [phone] 895-836801-20-2020 History of Present illness Narrative* Eve Koehler SLP - 03/20/2019 9:27 AM EST [facility] SPEECH THERAPY GRECIA FINNEGAN Modified Barium Swallow BACK PANEL PADDER Individual Minutes Time In: 0850 Time Out: 0900 Minutes: 10 Timed Code Treatment Minutes: 0 Minutes Date: 03/20/2019 Patient Name: Venus Herbert CSN: [id number] : 1965 (53 y.o.) Gender: male Referring Physician: Bart Juárez MD Diagnosis: Respiratory failure, unspecified Secondary Diagnosis: Dysphagia Precautions: Fall risk, aspiration precautions, PEG tube History of Present Illness/Injury: Pt presents to [facility] from [facility] with above med dx; please refer to physician H&P for full details. ST consulted to complete formal instrumentation via MBS to assess pharyngeal integrity to r/o dysfunction and to determine readinessfor potential PO diet level initiation. Pt has no past medical history on file. Chart review completed with hx of Down syndrome with prior hemorrhagic stroke and subsequent craniotomy. Current Diet: NPO; PEG tube Pain: No pain reported, however, pt non-verbal (occassional vowel production). No facial grimaces or evidence of discomfort. SUBJECTIVE: Pt resting in bed upon arrival to fluoro suite with RN Lindsay present for entirety of study. Mentation status poor with pt not able to execute 1-step commands despite provision of max cues; limited awareness to immediate surroundings and ST. Non-verbal with intermittent production of vowel-sounds. Deferral to L head turn with minimal improvements obtained in attempts to gain neutral head alignment. OBJECTIVE: Respiratory Status: Independent Behavioral Observation: Alert and Limited Direction Following PATIENT WAS EVALUATED USING: Thin and nectar/mildly thick barium via tsp; pudding ORAL PREPARATION PHASE: Impaired: Uncoordinated Mastication, Decreased Bolus Control, Decreased Bolus Formation and No Labial Approximation/Rounding ORAL PHASE: Impaired: Uncoordinated AP Movement, Decreased Lingual Elevation, Decreased Tongue Based Retraction and Uncontrolled Bolus/Diffuse Fall Over Tongue Base ORAL PHASE SALOMÓN SCORE: (Dysphagia outcome and severity scale) 2 = Moderately Severe Dysphagia - Tolerates at least one consistency safely with total use of strategies - Severe oral residue and unable to clear or needs multiple cues - Non-oral nutrition PHARYNGEAL PHASE: Impaired: Delayed Swallow, Decreased Airway Protection, Decreased Epiglottic Inversion, Decreased Hyolaryngeal Elevation and Residue in the Valleculae PHARYNGEAL PHASE SALOMÓN SCORE: (Dysphagia outcome and severity scale) 5 = Mild Dysphagia - may need one consistency restricted - May have one or more of the following: Aspiration with thin - cough to clear, Airway penetration midway to the vocal cords with one or more consistency or to the vocal folds with one consistency, but clears spontaneously - Residue in the pharynx clears spontaneously SIGNS AND SYMPTOMS OF LARYNGEAL PENETRATION / ASPIRATION: No evidence of aspiration Laryngeal penetration evident with thin barium via tsp PENETRATION-ASPIRATION SCALE (PAS): 4 = Material enters the airway, contacts the vocal folds, and is ejected from the airway ESOPHAGEAL PHASE: No significant findings ATTEMPTED TECHNIQUES: Small Bolus Size Effective Straw Not Attempted Cup Ineffective Chin Tuck Not Attempted Head Turn Not Attempted Spoon Presentations Effective Volitional Cough Not Attempted Spontaneous Cough Effective DIAGNOSTIC IMPRESSIONS: Pt presents with moderately severe oral dysphagia, mild pharyngeal dysphagia based on findings outlined above. Current level of dysphagia severity highly compounded d/t current level of medical complexity; question baseline mental status given pertinent hx including Down syndrome. Oral initiation skills profoundly impaired with pt not attempting to engage in labial rounding on utensil to permit extraction of boli into cavity, in which ST required to place fluid and pudding trials on L lateral sulcus (deviation of lingual body to the R) to permit entrance. Oral phase significantly impaired with immediate spillage to the faucial arches with minimal attempts for manipula tion and coordination of bolus. BOT retraction additionally impaired with consistent premature spillage to the level of the valleculae + pyriform space with fluid trials. Swallow initiation moderately delayed with slightly diminished hyolaryngeal elevation and anterior excursion, impacting epiglottic inversion efficacy as r/t airway protection. Trace residuals to follow in the valleculae with spontaneous clearance of stasis upon completion of subsequent swallow. Deep laryngeal penetration occurring x1 during the swallow within thin barium via tsp, however, positive sensation noted with production of cough reflex for ejection of material. No airway invasion events with nectar/milldy thick barium via tsp and pudding trials with imaging NOT endorsing presence of aspiration throughout controlled study. Attempted to complete cup trials, but lingual thrusting apparent with pt not able to complete labial rounding/approximation to cup rim. D/t current severity level of oral initiation and oral phase deficits, recommend continuation of NPO diet level with PEG tube at this time. Swallow function prognosis is guarded. Diet Recommendations: NPO; PEG tube Strategies: Recommend NPO Rehabilitation Potential: Guarded EDUCATION: Learner: Patient and RN Lindsay Education: Reviewed results and recommendations of this evaluation, Reviewed diet and strategies and Reviewed ST goals and Plan of Care Evaluation of Education: Verbalizes understanding (nursing), No evidence of learning (pt) and Family not present PLAN: No further speech therapy services indicated at this facility. [facility] of puree and nectar/mildly thick liquid trials via tsp to determine readiness for pleasure feed establishment and implementation of strict comprehensive oral care procedural analysis to maximize oral integrity to and to reduce bacteria colonization. PATIENT GOAL: Did not state. Will further assess during treatment. Eve Koehler M.A., [facility]-BACK PANEL PADDER [id number] documented in this encounterL[employer]is [employer] Phone: [phone] NotePROCEDURE: XR CHEST PORTABLE CLINICAL INFORMATION: sob. room 39. COMPARISON: No prior study. TECHNIQUE: AP Portable chest xray FINDINGS: Lines/tubes/devices: Tracheostomy tube tip lies at the thoracic inlet, 4.8 cm above the iwona in satisfactory position. Right jugular central venous catheter tiplies in the mid SVC region. Lungs/pleura: No pneumonia, pulmonary edema, or obvious mass. No pleural effusion. No pneumothorax. Heart: Heart size is normal. Mediastinum/nabeel: No obvious mass or adenopathy. Skeleton: No significant bone or joint abnormality.[employer] Phone: [phone] [facility] Results From [employer] - 03/09/2019 3:08 AM EST PROCEDURE: XR CHEST PORTABLE CLINICAL INFORMATION: sob. room 39. COMPARISON: No prior study. TECHNIQUE: AP Portable chest xray FINDINGS: Lines/tubes/devices: Tracheostomy tube tip lies at the thoracic inlet, 4.8 cm above the iwona in satisfactory position. Right jugular central venous catheter tip lies in the mid SVC region. Lungs/pleura: No pneumonia, pulmonary edema, or obvious mass. No pleural effusion. No pneumothorax. Heart: Heart size is normal. Mediastinum/nabeel: No obvious mass or adenopathy. Skeleton: No significant bone or joint abnormality. IMPRESSION: No acute cardiopulmonary disease. Satisfactory positions of the life support lines and tubes. This report has been created using voice recognition software. It may contain minor errors which are inherent in voice recognition technology. Final report electronically signed by Dr. Gilles Zelaya on 03/09/2019 3:06 AM [employer] Phone: evaluation note* Diagnosis Partial symptomatic epilepsy with complex partial seizures, not intractable, without status epilepticus (CMS-HCC) [facility] Diagnosis No-show for appointment- Primary [facility] N[facility]ative - Reported* Type Description Date Medical History seizures Medical History Down's syndrome Medical History stroke (hemorrhagic) Medical History hyperthyroidism Medical History [facility] Surgical History corneal transplant Surgical History colonoscopy Hospitalization History see above [employer] Other InstructionsNot on filedocumented in this encounter [facility] filedocumented in this encounter [facility]Not on filedocumented in this encounter [facility] Summary Purpose Family History No Family History Records FoundNo Family History Records FoundNo Family History Records FoundNo Family History Records FoundNo Family History Records FoundNo Family History Records FoundNo Family History Records FoundNo Family History Records FoundNo Family History Records Found Advance Directives No Advanced Directives Records FoundDocuments on File Type Date Recorded 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 Expl anation Advance Directives and Living Will 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 Latest Code Status on File Code Status Date Activated Date Inactivated Comments Full Code 03/06/2023 4:55 AM 03/08/2023 6:18 PM Code Status History Code Status Date Activated Date Inactivated Comments Full Code 09/10/2022 2:56 AM 09/18/2022 7:27 PM Full Code 12/12/2021 10:16 PM 12/14/2021 4:17 PM Full Code 02/27/2019 6:44 AM 03/07/2019 10:51 PM Full Code 02/08/2019 1:43 PM 02/17/2019 9:55 PM Additional Source Comments (unrecognized sect ion and content) No Status Records FoundNo Status Records FoundNo Status Records FoundNo Status Records FoundNo Status Records FoundNo Status Records FoundNo Status Records FoundNo Status Records FoundNo Status Records Found INFORMATION SOURCE (unrecogn ized section and content) DATE CREATED AUTHOR 03/28/2019 [facility] DATE CREATED AUTHOR AUTHOR'S ORGANIZ ATION 03/28/2019 [facility] DATE CREATED AUTHOR AUTHOR'S ORGANIZ ATION 04/12/2020 [facility] DATE CREATED AUTHOR AUTHOR'S ORGANIZ ATION 08/06/2020 [facility] DATE CREATED AUTHOR AUTHOR'S ORGANIZ ATION 06/21/2021 [facility] DATE CREATED AUTHOR AUTHOR'S ORGANIZ ATION 03/13/2023 [facility] DATE CREATED AUTHOR AUTHOR'S ORGANIZ ATION 08/08/2023 [facility] DATE CREATED AUTHOR AUTHOR'S ORGANIZ ATION [facility]/22/20[facility] DATE CREATED AUTHOR AUTHOR'S ORGANIZ ATION 11/08/2023 [facility] EPIC REASON FOR VISIT (unrecogniz ed section and content) Reason Onset Date Comments Med Refill 03/29/2023 Reason Comments Flu Symptoms Entered by patient Care Teams (unrecognized sec tion and content) Manager Ent Relationship Specialty Start Date End Date Ingrid Ramirez MD [address] [place] [address] PCP - General Family Medicine 01/10/16 Manager Ent Relationship Specialty Start Date End Date Ingrid Ramirez MD [address] [place] [address] PCP - General Family Medicine 01/10/16 Manager Ent Relationship Specialty Start Date End Date Ingrid Ramirez MD [address] [facility] [place] [address] PCP - General Family Medicine 01/10/16 FOR RECORDS PERTAINING TO PATIENTS WHO ARE OR HAVE BEEN ENROLLED IN A CHEMICAL DEPENDENCY/SUBSTANCEABUSE PROGRAM, SOME INFORMATION MAY BE OMITTED. This clinical summary was aggregated from multiple sources. Caution should be exercised in using it in the provision of clinical care. This summary normalizes information from multiple sources, and as a consequence, information in this document may materially change the coding, format and clinical context of patient data. In addition, data may be omitted in some cases. CLINICAL DECISIONS SHOULD BE BASED ON THE PRIMARY CLINICAL RECORDS. [facility]. provides no warranty or guarantee of the accuracy or completeness of information in this document.
== END 2023-11-16 20:07 | disposition home or self-care (01) ==
LOC: SLEEP 20:06
PROVIDERS: PCP Family Medicine; Visit Provider Family Medicine
DX: G47.33 Obstructive sleep apnea (adult) (pediatric) (principal)
CPT/HCPCS: 95811